=== PATIENT | female | born 1960 | race Caucasian/White ===

== ENCOUNTER 2017-11-14 14:10 | Emergency (ER) | payer SELFPAY ==
[2017-11-14] MEDS ORDERED: ADENOSINE 6 MG/2 ML VIAL. IV ×2 (14:18)
[2017-11-14] MEDS: ADENOSINE 6 MG/2 ML VIAL. IV ×2 (14:20)
== END 2017-11-14 16:15 | disposition home or self-care (01) ==
LOC: ER 14:10
DX: I47.1 Supraventricular tachycardia (principal)
CPT/HCPCS: 92960; 93005; 96374; 99284-25; J0153

== ENCOUNTER 2018-01-02 05:22 | Emergency (ER) | payer SELFPAY ==
[2018-01-02] MEDS ORDERED: ADENOSINE 6 MG/2 ML VIAL. IV (05:33)
[2018-01-02] MEDS: IV NORMAL SALINE 1000ML BAG 1,000 ML IV (05:56)
[2018-01-02] MEDS: ADENOSINE 6 MG/2 ML VIAL. IV (05:59)
[2018-01-02 06:06] LABS: ADD MAN DIFF? NO
[2018-01-02 06:12] LABS: BASO % 0 % (0-3); EOS # 0.1 x10^3/uL (0.0-0.7); EOS % 1 % (0-3); HEMATOCRIT 46.3 % (36.0-47.0); HEMOGLOBIN 15.5 g/dL (12.0-15.5); LYMPH # 3.3 x10^3/uL (1.0-4.8); LYMPH % 32 % (24-48); MEAN CORPUSCULAR HEMOGLOBIN 28 pg (25-35); MEAN CORPUSCULAR HGB CONC 33 g/dL (31-37); MEAN CORPUSCULAR VOLUME 85 fL (79-100); MONO # 0.7 x10^3/uL (0.0-1.1); MONO % 7 % (0-9); NEUT # 6.3 x10^3uL (1.8-7.7); NEUT % 60 % (31-73); PLATELET COUNT 209 x10^3/uL (140-400); RED BLOOD COUNT 5.45 x10^6/uL (3.50-5.40); RED CELL DISTRIBUTION WIDTH 14.7 % (11.5-14.5); WHITE BLOOD COUNT 10.4 x10^3/uL (4.0-11.0)
[2018-01-02 06:32] LABS: ANION GAP 12 (6-14); BLOOD UREA NITROGEN 15 mg/dL (7-20); CALCIUM 9.1 mg/dL (8.5-10.1); CARBON DIOXIDE 25 mmol/L (21-32); CHLORIDE 105 mmol/L (98-107); CREATININE 1.1 mg/dL (0.6-1.0); GFR 51.6; GLUCOSE 129 mg/dL (70-99); POTASSIUM 3.3 mmol/L (3.5-5.1); SODIUM 142 mmol/L (136-145)
[2018-01-02 06:42] LABS: TROPONINI < 0.017 ng/mL (0.000-0.055)
[2018-01-02 06:47] LABS: THYROID STIM HORMONE (TSH) 2.356 uIU/mL (0.358-3.74)
[2018-01-02] MEDS: POTASSIUM CHLORIDE 20 MEQ TABLET.ER. PO (06:50)
== END 2018-01-02 07:04 | disposition home or self-care (01) ==
LOC: ER 05:22
DX: I47.1 Supraventricular tachycardia (principal)
CPT/HCPCS: 36415; 80048; 84443; 84484; 85025; 93005; 96361; 96374; 99285-25; J0153; J7030

== ENCOUNTER 2018-10-15 05:37 | Emergency (ER) | payer SELFPAY ==
[~2018-10-15] VITALS: Ht 172.7 cm; Wt 65.8 kg
[~2018-10-15 05:37] MED LIST: LAMO200T3 PO
--- NOTE | 2018-10-15 05:42 | PHYS DOC ---
Past Medical History Past Medical History: Arrhythmia, Seizure, Other Additional Past Medical Histor: SVT Past Surgical History: No Surgical History Alcohol Use: None Drug Use: None Adult General Chief Complaint Chief Complaint: Palpitations HPI HPI Patient is a 58 year old female who presents with SVT. Patient has had SVT many times in her life. She states sometimes it only happens once a year or less and other times she has episodes that are recurrent more frequently. She woke up this morning having some chest tightness and noted her heart rate to be fast. She states the symptoms are very typical for her SVT symptoms. No shortness of breath. Patient was previously set to undergo ablation therapy but eventually lost her insurance and did not have that procedure done. She currently does not have a primary abalone processor for lack of insurance. No nausea or vomiting. No recent illness. No additional complaints today. Review of Systems Review of Systems Constitutional: Denies fever or chills Eyes: Denies change in visual acuity HENT: Denies nasal congestion or sore throat Respiratory: Denies cough or shortness of breath Cardiovascular: No additional information not addressed in HPI GI: Denies abdominal pain, nausea : Denies dysuria or hematuria Musculoskeletal: Denies back pain Integument: Denies rash or skin lesions Neurologic: Denies headache All other systems were reviewed and found to be within normal limits, except as documented in this note. Current Medications Current Medications Current Medications Medications (Trade) Dose Ordered Sig/[facility] Start Time Stop Time Status Last Admin Dose Admin Adenosine (Adenocard) 6 mg 1X ONCE 10/15/18 06:00 10/15/18 06:01 DC 10/15/18 05:54 6 MG Aspirin (Yovani Aspirin) 325 mg 1X ONCE 10/15/18 06:00 10/15/18 06:01 DC 10/15/18 06:15 325 MG Sodium Chloride 1,000 ml @ 1,000 mls/hr 1X ONCE 10/15/18 06:00 10/15/18 06:59 DC 10/15/18 05:53 1,000 MLS/HR Allergies Allergies Allergies Coded Allergies Type Severity Reaction Last Updated Verified No Known Drug Allergies 02/08/14 No Physical Exam Physical Exam Constitutional: Well developed, well nourished, no acute distress, non-toxic appearance HENT: Normocephalic, atraumatic, bilateral external ears normal Eyes: PERRLA, EOMI, conjunctiva normal Neck: Normal range of motion, no tenderness Cardiovascular: tachy regular rhythm, no murmur Lungs & Thorax: Bilateral breath sounds clear to auscultation Abdomen: Bowel sounds normal, soft, no tenderness Skin: Warm, dry, no erythema, no rash Extremities: No tenderness Neurologic: Alert and oriented X 3 Psychologic: Affect normal Current Patient Data Vital Signs Vital Signs Date Time Temp Pulse Resp B/P (MAP) Pulse Ox O2 Delivery O2 Flow Rate FiO2 10/15/18 06:14 92 18 132/79 (96) 100 Room Air 10/15/18 05:38 97.5 97.5 EKG EKG [] Radiology/Procedures Radiology/Procedures [] Course & Med Decision Making Course & Med Decision Making Pertinent Labs and Imaging studies reviewed. (See chart for details) Patient is evaluated in the emergency department for SVT. The patient has had this many times. On arrival, she has a heart rate in the 150s and an EKG consistent with SVT. IV was placed. The patient was given IV fluids. She was given a single dose of 6 mg adenosine in the left before meals. Following this, the patient converted to a sinus rhythm. She was observed in the ER for another hour and continued to be in sinus rhythm. Subjectively, the patient's complaints were all improved. Patient was requesting discharge to home. She was provided the office number to the abalone processor on-call for follow-up and also encouraged to come back to the ER if her symptoms recurred. Patient was agreeable to the plan of care. Of note, the patient did have labs ordered empirically on arrival to her room. During her actual examination, she specifically requested that labs not be completed as this would run up significant additional cost for her visit and as she states her labs have been checked every time she has this episode and they are always normal. With this information, I immediately went to the computer and canceled the lab orders but they were already in progress. I then contacted the laboratory directly and requested that these tests be canceled per the patient's request. I advised the patient that if she receives a bill for the labs in the future that she should contact the billing department and also reference this note. The patient should not receive any charges for labs as she declined these tests which is her right to do. Raya: Patient arrived during end of shift. EKG and labs ordered empirically upon patient's arrival. EKG noted SVT. Patient was not seen or evaluated by myself as Dr. Glez arrived and took over care. Dragon Disclaimer Dragon Disclaimer This electronic medical record was generated, in whole or in part, using a voice recognition dictation system. Departure Departure Disposition: 01 HOME, SELF-CARE Condition: GOOD Referrals: UNKNOWN PCP NAME (PCP) SHANNON RAYA DO Oct 15, 2018 05:42 GAUTAM GLEZ DO Oct 15, 2018 06:51
[2018-10-15] MEDS: IV NORMAL SALINE 1000ML BAG 1,000 ML IV ONE (05:53)
[2018-10-15] MEDS: ADENOSINE 6 MG/2 ML VIAL. IV ONE (05:54)
[2018-10-15 06:14] VITALS: BP 132/79
[2018-10-15] MEDS: ASPIRIN 325 MG TABLET PO ONE (06:15)
--- NOTE | 2018-10-15 10:59 | EKG ---
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
--- NOTE | 2018-10-16 08:14 | EKG ---
[facility] [address] [place] [address] Test Date: 2018-10-15 Test Time: 05:43:13 Pat Name: MURALI ALBA Department: Room: Gender: F Loop Puller: : 1960 Requested By: GAUTAM CHAVARRIA Order Number: [id number] Reading MD: Measurements Intervals [place] Rate: 168 P: DC: QRS: 41 QRSD: 82 T: -72 QT: 264 QTc: 447 Interpretive Statements SUPRAVENTRICULAR TACHYCARDIA ST & T ABNORMALITY, CONSIDER LATERAL ISCHEMIA OR LEFT VENTRICULAR STRAIN INFEROLATERAL ISCHEMIA OR LEFT VENTRICULAR STRAIN ABNORMAL ECG RI6.01 No previous ECG available for comparison
== END 2018-10-15 07:01 | disposition home or self-care (01) ==
LOC: ER 05:37
DX: I47.1 Supraventricular tachycardia (principal)
CPT/HCPCS: 93005; 96361; 96374; 99283; J0153; J7030; 99284-25

== ENCOUNTER 2018-12-25 07:45 | Emergency (ER) | payer SELFPAY ==
[~2018-12-25] VITALS: Ht 172.7 cm; Wt 63.5 kg
[2018-12-25] MEDS ORDERED: ADENOSINE 6 MG/2 ML VIAL. IV ONE (07:56)
[2018-12-25 08:35] VITALS: BP 123/66
--- NOTE | 2018-12-25 09:32 | PHYS DOC ---
Past Medical History Past Medical History: Seizure Additional Past Medical Histor: SVT Past Surgical History: Tonsillectomy Alcohol Use: None Drug Use: None Adult General Chief Complaint Chief Complaint: RAPID HEART RATE HPI HPI Patient is a 58 year old female who is presenting with severe palpitations she said she felt her heart racing when she woke up this feels similar to her previous episodes of SVT. She has some mild chest discomfort but really it is the heart racing that is bothering her the most she is sweaty and feels weak. She's had this several times in the past she has not yet had an ablation because she tells me she does not have insurance Review of Systems Review of Systems Constitutional: Denies fever or chills [] Eyes: Denies change in visual acuity, redness, or eye pain [] HENT: Denies nasal congestion or sore throat [] Respiratory: Denies cough or shortness of breath [] Cardiovascular: GI: Denies abdominal pain, nausea, vomiting, bloody stools or diarrhea [] : Denies dysuria or hematuria [] All other systems were reviewed and found to be within normal limits, except as documented in this note. Current Medications Current Medications Current Medications Medications (Trade) Dose Ordered Sig/[facility] Start Time Stop Time Status Last Admin Dose Admin Adenosine (Adenocard) 6 mg STK-MED ONCE 12/25/18 07:56 12/25/18 07:57 DC Allergies Allergies Allergies Coded Allergies Type Severity Reaction Last Updated Verified No Known Drug Allergies 02/08/14 No Physical Exam Physical Exam Constitutional: Well developed, mildly diaphoretic mild distress HENT: Normocephalic, atraumatic, bilateral external ears normal, oropharynx moist, no oral exudates, nose normal. [] Eyes: PERRLA, EOMI, conjunctiva normal, no discharge. [] Neck: Normal range of motion, no tenderness, supple, no stridor. [] Cardiovascular: Very tachycardic difficult to assess for murmurs Lungs & Thorax: Bilateral breath sounds clear to auscultation [] Abdomen: Bowel sounds normal, soft, no tenderness, no masses, no pulsatile masses. [] Skin: Warm, diaphoretic, no erythema, no rash. [] Back: No tenderness, no CVA tenderness. [] Extremities: No tenderness, no cyanosis, no clubbing, ROM intact, no edema. [] Neurologic: Alert and oriented X 3, normal motor function, normal sensory function, no focal deficits noted. [] Psychologic: Affect normal, judgement normal, mood normal. [] Current Patient Data Vital Signs Vital Signs Date Time Temp Pulse Resp B/P (MAP) Pulse Ox O2 Delivery O2 Flow Rate FiO2 12/25/18 08:35 92 16 123/66 (85) 98 Room Air 12/25/18 07:45 97.8 97.8 EKG EKG [] Radiology/Procedures Radiology/Procedures [] Course & Med Decision Making Course & Med Decision Making Pertinent Labs and Imaging studies reviewed. (See chart for details) []EKG shows most likely SVT with a rate of 166 there are some rate related ST depressions most likely in V4 through V6 there is isolated ST elevation in aVR this is likely rate related changes. Repeat EKG after 6 mg of adenosine I witnessed a immediate reversion to sinus rhythm second EKG showed sinus tachycardia rate of 102 P waves are present no STEMI no ischemia I reevaluated the patient in detail following this treatment she says that her symptoms have resolved completely. I did recommend some lab work to check her electrolytes to evaluate her troponins her hemoglobin the typical usual stuff that we always do and she adamantly refuses she says that she has had labs checked so many times and they're always negative and she does not want to get the pill when she is refusing those tests. This appears to be within her rights and she is aware of the risks of a missed diagnosis up to and including M She was observed in the ER with maintenance of sinus rhythm and she was discharged in stable condition and encouraged to do her very best to obtain the appropriate follow-up. Dragon Disclaimer Dragon Disclaimer This electronic medical record was generated, in whole or in part, using a voice recognition dictation system. Departure Departure Impression: Primary Impression: SVT (supraventricular tachycardia) Disposition: 01 HOME, SELF-CARE Condition: STABLE Referrals: UNKNOWN PCP NAME Patient Instructions: Supraventricular Tachycardia, [id number] MICHAEL RODRIGUEZ MD Dec 25, 2018 09:32
--- NOTE | 2018-12-25 12:09 | EKG ---
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
--- NOTE | 2018-12-25 12:28 | EKG ---
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
== END 2018-12-25 09:06 | disposition home or self-care (01) ==
LOC: ER 07:45
DX: I47.1 Supraventricular tachycardia (principal); R61 Generalized hyperhidrosis; Z90.89 Acquired absence of other organs
CPT/HCPCS: 93005; 99283

== ENCOUNTER 2018-12-27 10:37 | Emergency (ER) | payer SELFPAY ==
[~2018-12-27] VITALS: Ht 172.7 cm; Wt 63.5 kg
[2018-12-27] MEDS ORDERED: ADENOSINE 6 MG/2 ML VIAL. IV ONE (10:45)
[2018-12-27 12:10] VITALS: BP 129/68
--- NOTE | 2018-12-27 12:12 | PHYS DOC ---
Past Medical History Past Medical History: Seizure Additional Past Medical Histor: SVT Past Surgical History: Tonsillectomy Alcohol Use: None Drug Use: None Adult General Chief Complaint Chief Complaint: RAPID HEART RATE [facility] HPI Patient is a 58 year old female presents with palpitations onset 40 minutes prior to arrival multiple history of the same has some chest pressure associated she does not want me to do labs I could not convince her again she has had multiple fairly normal labs overall she is taking potassium supplementation she is taking Cardizem 240 mg a day she is working on obtaining insurance so that she can try to get an ablation for this fairly chronic problem Review of Systems Review of Systems Constitutional: Denies fever or chills [] Eyes: Denies change in visual acuity, redness, or eye pain [] HENT: Denies nasal congestion or sore throat [] Cardiovascular: No additional information not addressed in HPI [] GI: Denies abdominal pain, nausea, vomiting, bloody stools or diarrhea [] : Denies dysuria or hematuria [] Musculoskeletal: Denies back pain or joint pain [] Integument: Denies rash or skin lesions [] Neurologic: Denies headache, focal weakness or sensory changes [] Endocrine: Denies polyuria or polydipsia [] All other systems were reviewed and found to be within normal limits, except as documented in this note. Current Medications Current Medications Current Medications Medications (Trade) Dose Ordered Sig/[facility] Start Time Stop Time Status Last Admin Dose Admin Adenosine (Adenocard) 6 mg 1X ONCE 12/27/18 10:45 12/27/18 10:46 DC 12/27/18 10:47 6 MG Allergies Allergies Allergies Coded Allergies Type Severity Reaction Last Updated Verified No Known Drug Allergies 02/08/14 No Physical Exam Physical Exam Constitutional: Well developed, well nourished, mildly ill-appearing, nose normal. [] Eyes: PERRLA, EOMI, conjunctiva normal, no discharge. [] Neck: Normal range of motion, no tenderness, supple, no stridor. [] Cardiovascular: Very tachycardic but regular no definite murmurs speed limits exam Lungs & Thorax: Bilateral breath sounds clear to auscultation [] Abdomen: Bowel sounds normal, soft, no tenderness, no masses, no pulsatile masses. [] Skin: Warm, dry, no erythema, no rash. [] Back: No tenderness, no CVA tenderness. [] Extremities: No tenderness, no cyanosis, no clubbing, ROM intact, no edema. [] Neurologic: Alert and oriented X 3, normal motor function, normal sensory function, no focal deficits noted. [] Psychologic: Affect normal, judgement normal, mood normal. [] Current Patient Data Vital Signs Vital Signs Date Time Temp Pulse Resp B/P (MAP) Pulse Ox O2 Delivery O2 Flow Rate FiO2 12/27/18 10:40 97.2 185 22 146/96 (113) 100 Room Air 97.2 EKG EKG []EKG shows a SVT with retrograde P waves rate of 182 ST related changes laterally probably rate related to some mild ST depression seen repeat EKG after 6 mg of adenosine did show a sinus tachycardia at a rate of [address] depressions on this EKG which was done less than 30 seconds after resolution of the SVT. Reevaluation of the cardiac surgeon at 12 noon does show a rate of 81 with good P waves and I went back to recheck her and she is asymptomatic eager to go home. Radiology/Procedures Radiology/Procedures [] Course & Med Decision Making Course & Med Decision Making Pertinent Labs and Imaging studies reviewed. (See chart for details) []Recurrent SVT we gave adenosine it broke this is a common issue for her I did encourage good follow-up she is taking Cardizem she will continue to do so. She is also on potassium supplementation which is good she did not want labs to be done again Dragon Disclaimer Dragon Disclaimer This electronic medical record was generated, in whole or in part, using a voice recognition dictation system. Departure Departure Impression: Primary Impression: SVT (supraventricular tachycardia) Disposition: 01 HOME, SELF-CARE Condition: STABLE Referrals: NO PCP (PCP) Patient Instructions: Supraventricular Tachycardia, [id number] MICHAEL RODRIGUEZ MD Dec 27, 2018 12:12
--- NOTE | 2018-12-27 12:15 | EKG ---
[facility] [address] [place] [address] Test Date: 2018-12-27 Test Time: 10:43:08 Pat Name: MURALI ALBA Department: Room: Gender: F Cardiopulmonary Technologist Chief: : 1960 Requested By: MICHAEL RODRIGUEZ Order Number: [id number] Reading MD: Balbir Aguiar MD Measurements Intervals [place] Rate: 181 P: [place]: QRS: 49 QRSD: 80 T: 32 QT: 266 QTc: 466 Interpretive Statements SUPRAVENTRICULAR TACHYCARDIA NON-SPECIFIC ST/T CHANGES Electronically Signed On 12-28-2018 9:37:52 CDT by Balbir Aguiar MD
[2018-12-27] MEDS ORDERED: IV NORMAL SALINE 1000ML BAG 1,000 ML IV ONE (12:30)
--- NOTE | 2018-12-27 13:09 | EKG ---
[facility] [address] [place] [address] Test Date: 2018-12-27 Test Time: 10:48:58 Pat Name: MURALI ALBA Department: Room: Gender: F Charge Account Clerk: : 1960 Requested By: MICHAEL RODRIGUEZ Order Number: [id number] Reading MD: Balbir Aguiar MD Measurements Intervals [place] Rate: 133 P: -47 [place]: 116 QRS: 64 QRSD: 86 T: 42 QT: 292 QTc: 435 Interpretive Statements SR NON-SPECIFIC ST/T CHANGES Electronically Signed On 12-28-2018 9:38:04 CDT by Balbir Aguiar MD
== END 2018-12-27 12:22 | disposition home or self-care (01) ==
LOC: ER 10:37
DX: I47.1 Supraventricular tachycardia (principal); Z90.89 Acquired absence of other organs
CPT/HCPCS: 93005; 96374; 99283; J0153

== ENCOUNTER 2019-01-03 10:39 | Emergency (ER) | payer SELFPAY ==
[~2019-01-03] VITALS: Ht 172.7 cm; Wt 68.0 kg
[2019-01-03] MEDS ORDERED: IV NORMAL SALINE 1000ML BAG 1,000 ML IV SCH (10:47)
[2019-01-03] MEDS ORDERED: ADENOSINE 6 MG/2 ML VIAL. IV ONE (11:00)
[2019-01-03 11:12] LABS: BASO # 0.1 x10^3/uL (0.0-0.2); BASO % 1 % (0-3); EOS # 0.2 x10^3/uL (0.0-0.7); EOS % 2 % (0-3); HEMATOCRIT 46.6 % (36.0-47.0); HEMOGLOBIN 15.6 g/dL (12.0-15.5); LYMPH # 3.3 x10^3/uL (1.0-4.8); LYMPH % 36 % (24-48); MEAN CORPUSCULAR HEMOGLOBIN 28 pg (25-35); MEAN CORPUSCULAR HGB CONC 33 g/dL (31-37); MEAN CORPUSCULAR VOLUME 84 fL (79-100); MONO # 0.6 x10^3/uL (0.0-1.1); MONO % 6 % (0-9); NEUT # 4.9 x10^3uL (1.8-7.7); NEUT % 55 % (31-73); PLATELET COUNT 264 x10^3/uL (140-400); RED BLOOD COUNT 5.56 x10^6/uL (3.50-5.40); RED CELL DISTRIBUTION WIDTH 14.9 % (11.5-14.5)
--- NOTE | 2019-01-03 11:29 | RAD ---
PORTABLE CHEST 1V Clinical indications: PALPITATIONS, supraventricular tachycardia COMPARISON: August 20, 2013. Findings: No acute lung infiltrate or pleural effusion or pulmonary edema or lung mass or pneumothorax is seen. The heart size, pulmonary vasculature, mediastinum and both jess are unremarkable. Impression: No acute radiographic abnormality is seen. Electronically signed by: Johnathon Mccullough MD (01/03/2019 11:26 AM) [facility]
[2019-01-03 12:36] LABS: CALCIUM 7.9 mg/dL (8.5-10.1); GFR 57.4; POTASSIUM 3.1 mmol/L (3.5-5.1)
--- NOTE | 2019-01-03 12:36 | PHYS DOC ---
Past Medical History Past Medical History: Seizure Additional Past Medical Histor: SVT Past Surgical History: Tonsillectomy Alcohol Use: None Drug Use: None Adult General Chief Complaint Chief Complaint: RAPID HEART RATE HPI HPI Patient is a 58 year old female with history of SVT who presents with a complaining of palpitation. Patient states she woke up at 7 AM because of palpitation without chest pain, dizziness, shortness of breath, weakness, nausea and vomiting. Patient complaining of constant palpitations that did not get better with Valsalva maneuver and taking daily dose of 240 mg of Cardizem. Patient had heart rate of 188 at arrival to ER and states she was seen in this emergency room one week ago with the same problem. Patient states she had episodes of SVT for almost 15 years and treatment with cardiac ablation was discussed with her but because of insurance problems she had not had ablation or cardiology visit. Review of Systems Review of Systems Constitutional: Denies fever or chills [] Eyes: Denies change in visual acuity, redness, or eye pain [] HENT: Denies nasal congestion or sore throat [] Respiratory: Denies cough or shortness of breath [] Cardiovascular: No additional information not addressed in HPI [] GI: Denies abdominal pain, nausea, vomiting, bloody stools or diarrhea [] : Denies dysuria or hematuria [] Musculoskeletal: Denies back pain or joint pain [] Integument: Denies rash or skin lesions [] Neurologic: Denies headache, focal weakness or sensory changes [] Endocrine: Denies polyuria or polydipsia [] All other systems were reviewed and found to be within normal limits, except as documented in this note. Current Medications Current Medications Current Medications Medications (Trade) Dose Ordered Sig/Rohith Start Time Stop Time Status Last Admin Dose Admin Adenosine (Adenocard) 6 mg 1X ONCE 01/03/19 11:00 01/03/19 11:01 DC 01/03/19 10:56 6 MG Potassium Chloride (Klor-Con) 40 meq 1X ONCE 01/03/19 13:15 01/03/19 13:16 DC 01/03/19 13:12 40 MEQ Sodium Chloride 500 ml @ 500 mls/hr 1X ONCE 01/03/19 13:15 01/03/19 14:06 DC 01/03/19 13:13 500 MLS/HR Allergies Allergies Allergies Coded Allergies Type Severity Reaction Last Updated Verified No Known Drug Allergies 02/08/14 No Physical Exam Physical Exam Constitutional: Well developed, well nourished, moderate distress, non-toxic appearance. [] HENT: Normocephalic, atraumatic, oropharynx moist. Eyes: PERRLA, EOMI, conjunctiva normal, no discharge. [] Neck: Normal range of motion, no tenderness, supple, no stridor. [] Cardiovascular: Tachycardia, no murmur [] Lungs & Thorax: Bilateral breath sounds clear to auscultation [] Abdomen: Bowel sounds normal, soft, no tenderness, no masses, no pulsatile masses. [] Skin: Warm, dry, no erythema, no rash. [] Back: No tenderness, no CVA tenderness. [] Extremities: No tenderness, no cyanosis, no clubbing, ROM intact, no edema. [] Neurologic: Alert and oriented X 3, normal motor function, normal sensory function, no focal deficits noted. [] Psychologic: Affect anxious, judgement normal, mood normal. [] Current Patient Data Vital Signs Vital Signs Date Time Temp Pulse Resp B/P (MAP) Pulse Ox O2 Delivery O2 Flow Rate FiO2 01/03/19 13:45 70 14 114/71 (85) 100 Nasal Cannula 2.0 01/03/19 10:41 98.6 98.6 Lab Values Laboratory Tests Test 01/03/19 10:56 01/03/19 11:33 White Blood Count 9.0 x10^3/uL (4.0-11.0) Red Blood Count 5.56 x10^6/uL (3.50-5.40) H Hemoglobin 15.6 g/dL (12.0-15.5) H Hematocrit 46.6 % (36.0-47.0) Mean Corpuscular Volume 84 fL (79-100) Mean Corpuscular Hemoglobin 28 pg (25-35) Mean Corpuscular Hemoglobin Concent 33 g/dL (31-37) Red Cell Distribution Width 14.9 % (11.5-14.5) H Platelet Count 264 x10^3/uL (140-400) Neutrophils (%) (Auto) 55 % (31-73) Lymphocytes (%) (Auto) 36 % (24-48) Monocytes (%) (Auto) 6 % (0-9) Eosinophils (%) (Auto) 2 % (0-3) Basophils (%) (Auto) 1 % (0-3) Neutrophils # (Auto) 4.9 x10^3uL (1.8-7.7) Lymphocytes # (Auto) 3.3 x10^3/uL (1.0-4.8) Monocytes # (Auto) 0.6 x10^3/uL (0.0-1.1) Eosinophils # (Auto) 0.2 x10^3/uL (0.0-0.7) Basophils # (Auto) 0.1 x10^3/uL (0.0-0.2) Prothrombin Time 13.0 SEC (11.7-14.0) Prothrombin Time INR 1.0 (0.8-1.1) Sodium Level 145 mmol/L (136-145) Potassium Level 3.1 mmol/L (3.5-5.1) L Chloride Level 110 mmol/L (98-107) H Carbon Dioxide Level 20 mmol/L (21-32) L Anion Gap 15 (6-14) H Blood Urea Nitrogen 12 mg/dL (7-20) Creatinine 1.0 mg/dL (0.6-1.0) Estimated GFR (Cockcroft-Gault) 57.4 BUN/Creatinine Ratio 12 (6-20) Glucose Level 115 mg/dL (70-99) H Calcium Level 7.9 mg/dL (8.5-10.1) L Magnesium Level 1.9 mg/dL (1.8-2.4) Total Bilirubin 0.6 mg/dL (0.2-1.0) Aspartate Amino Transferase (AST) 18 U/L (15-37) Alanine Aminotransferase (ALT) 19 U/L (14-59) Alkaline Phosphatase 86 U/L (46-116) Creatine Kinase 98 U/L (26-192) Troponin I Quantitative < 0.017 ng/mL (0.000-0.055) QQ-Qth-U-Type Natriuretic Peptide 282 pg/mL (0-124) H Total Protein 6.2 g/dL (6.4-8.2) L Albumin 3.3 g/dL (3.4-5.0) L Albumin/Globulin Ratio 1.1 (1.0-1.7) Thyroid Stimulating Hormone (TSH) 1.246 uIU/mL (0.358-3.74) Laboratory Tests 01/03/19 10:56 Laboratory Tests 01/03/19 11:33 EKG EKG EKG interpreted by me. EKG at 1043 showed 60 04/26/79, no acute ST-T wave abnormalities Repeat EKG at 11 00 after treatment with 6 mg of Adenosin showed sinus tachycardia at rate of 107, normal NV and QT intervals, poor R-wave progress in anteroseptal leads, Radiology/Procedures Radiology/Procedures [facility] [address] [place] [address] IMAGING REPORT Signed PATIENT: MURALI ALBA ACCOUNT: [id number] : 1960 LOCATION: ER AGE: 58 SEX: F EXAM STATUS: REG ER ORD. PHYSICIAN: JIMI JOHNSON MD REASON: palpitation, SVT PROCEDURE: PORTABLE CHEST 1V PORTABLE CHEST 1V Clinical indications: PALPITATIONS, supraventricular tachycardia COMPARISON: August 20, 2013. Findings: No acute lung infiltrate or pleural effusion or pulmonary edema or lung mass or pneumothorax is seen. The heart size, pulmonary vasculature, mediastinum and both jess are unremarkable. Impression: No acute radiographic abnormality is seen. Electronically signed by: Gloria Mccullough MD (01/03/2019 11:26 AM) [facility] DICTATED and SIGNED BY: GLORIA MCCULLOUGH MD DATE: 01/03/19 1126 Course & Med Decision Making Course & Med Decision Making Pertinent Labs and Imaging studies reviewed. (See chart for details) Evaluation of patient in ER showed 58-year-old female patient with history of recurrent SVT presented to ER with palpitation and heart rate of 180s. Patient did not have chest pain or hypotension or altered level of consciousness. Patient treated with 6 mg of Adenosin with conversion of SVT to sinus rhythm. Patient had mild hypokalemia and treated with potassium in ER. Patient had blood pressure to low 90s and high 80s and treated with IV fluid with improvement of blood pressure. Patient stated she had chronic hypotension. Patient did not want hospitalization wants to follow-up with her electrogalvanizing machine operator as outpatient because of financial problem. Patient ambulated without problem with heart rate of 90. Patient was advised to continue home Cardizem and quit smoking. Dragon Disclaimer Dragon Disclaimer This electronic medical record was generated, in whole or in part, using a voice recognition dictation system. Departure Departure Impression: Primary Impression: SVT (supraventricular tachycardia) Additional Impressions: Hypokalemia Tobacco abuse Tobacco abuse counseling Hypotension Anxiety Disposition: HOME, SELF-CARE (at 1343) Condition: IMPROVED Referrals: NO PCP (PCP) MEÑO MAURICIO MD Patient Instructions: Hypokalemia, Smoking Cessation, Tips For Success, Supraventricular Tachycardia Additional Instructions: Follow-up with on-call electrogalvanizing machine operator in one or 2 days Continue home medication Follow-up with your primary care physician in 3-5 days Return to ER if not getting better Critical Care Time Critical care time was 40 minutes exclusive of procedures. Problem Qualifiers JIMI JOHNSON MD Jan 03, 2019 12:36
[2019-01-03 12:42] LABS: ALBUMIN 3.3 g/dL (3.4-5.0); ALBUMIN/GLOBULIN RATIO 1.1 (1.0-1.7); MAGNESIUM 1.9 mg/dL (1.8-2.4); TOTAL BILIRUBIN 0.6 mg/dL (0.2-1.0); TOTAL PROTEIN 6.2 g/dL (6.4-8.2)
[2019-01-03] MEDS ORDERED: IV NORMAL SALINE 500ML BAG 500 ML IV ONE (13:15)
[2019-01-03] MEDS ORDERED: POTASSIUM CHLORIDE 20 MEQ TABLET.ER. PO ONE (13:15)
[2019-01-03 13:45] VITALS: BP 114/71
--- NOTE | 2019-01-03 19:23 | EKG ---
[facility] [address] [place] [address] Test Date: 2019-01-03 Test Time: 10:43:49 Pat Name: MURALI ALBA Department: Room: Gender: F Apple Packing Header: : 1960 Requested By: JIMI JOHNSON Order Number: [id number] Reading MD: Balbir Aguiar MD Measurements Intervals [place] Rate: 179 P: [place]: QRS: 59 QRSD: 78 T: 37 QT: 264 QTc: 463 Interpretive Statements SUPRAVENTRICULAR TACHYCARDIA DIFFUSE ST/T CHANGES - NON-SPECIFICI Electronically Signed On 01-15-2019 9:54:59 CDT by Balbir Aguiar MD
--- NOTE | 2019-01-04 13:57 | EKG ---
[facility] [address] [place] [address] Test Date: 2019-01-03 Test Time: 11:00:37 Pat Name: MURALI ALBA Department: Room: Gender: F Healthcare Management Consultant: : 1960 Requested By: JIMI JOHNSON Order Number: [id number] Reading MD: Balbir Aguiar MD Measurements Intervals [place] Rate: 107 P: 40 ME: 152 QRS: 68 QRSD: 82 T: 61 QT: 320 QTc: 432 Interpretive Statements SINUS TACHYCARDIA NON-SPECIFIC ST/T CHANGES Electronically Signed On 01-15-2019 9:55:08 CDT by Balbir Aguiar MD
== END 2019-01-03 14:06 | disposition home or self-care (01) ==
LOC: ER 10:39
DX: I47.1 Supraventricular tachycardia (principal); E87.6 Hypokalemia; I95.9 Hypotension, unspecified; F41.9 Anxiety disorder, unspecified; Z71.6 Tobacco abuse counseling; Z90.89 Acquired absence of other organs
CPT/HCPCS: 36415; 71045; 80053; 82550; 83735; 83880; 84443; 84484; 85025; 85610; 93005; 96374; 99284; J0153; J7030; J7040

== ENCOUNTER 2019-02-19 00:53 | Emergency (ER) | payer SELFPAY ==
[~2019-02-19] VITALS: Ht 172.7 cm; Wt 65.8 kg
[2019-02-19] MEDS ORDERED: ADENOSINE 6 MG/2 ML VIAL. IV ONE ×3 (00:59→01:45)
[2019-02-19 01:21] LABS: BASO # 0.1 x10^3/uL (0.0-0.2); BASO % 1 % (0-3); EOS # 0.1 x10^3/uL (0.0-0.7); EOS % 1 % (0-3); HEMATOCRIT 42.9 % (36.0-47.0); HEMOGLOBIN 14.4 g/dL (12.0-15.5); LYMPH # 3.4 x10^3/uL (1.0-4.8); LYMPH % 39 % (24-48); MEAN CORPUSCULAR HEMOGLOBIN 28 pg (25-35); MEAN CORPUSCULAR HGB CONC 34 g/dL (31-37); MEAN CORPUSCULAR VOLUME 84 fL (79-100); MONO # 0.6 x10^3/uL (0.0-1.1); MONO % 7 % (0-9); NEUT # 4.5 x10^3uL (1.8-7.7); NEUT % 52 % (31-73); PLATELET COUNT 193 x10^3/uL (140-400); RED BLOOD COUNT 5.11 x10^6/uL (3.50-5.40); RED CELL DISTRIBUTION WIDTH 14.7 % (11.5-14.5); WHITE BLOOD COUNT 8.7 x10^3/uL (4.0-11.0)
[2019-02-19 01:27] LABS: CALCIUM 9.1 mg/dL (8.5-10.1); CREATININE 1.1 mg/dL (0.6-1.0); GFR 51.4; POTASSIUM 3.5 mmol/L (3.5-5.1)
[2019-02-19 01:33] LABS: ALBUMIN 4.5 g/dL (3.4-5.0); ALBUMIN/GLOBULIN RATIO 1.4 (1.0-1.7); TOTAL BILIRUBIN 0.6 mg/dL (0.2-1.0); TOTAL PROTEIN 7.7 g/dL (6.4-8.2)
--- NOTE | 2019-02-19 01:52 | PHYS DOC ---
Past Medical History Past Medical History: Seizure, Other Additional Past Medical Histor: SVT Past Surgical History: Tonsillectomy Alcohol Use: None Drug Use: None Adult General Chief Complaint Chief Complaint: RAPID HEART RATE HPI HPI Patient is a 58 year old female with history of paroxysmal SVT who presents in SVT. Symptom onset is 30 minutes prior to ED arrival. Patient has required prior chemical cardioversion. At home, she attempted to bear down, perform head stands and splashed cold water in her face without effect. Patient reports mild dyspnea, denies chest pain, nausea sweats. Denies known precipitants. Denies caffeine or stimulant use. Patient has had prior heart catheterization that she states was negative. She is compliant with her antiarrhythmic medication. No other acute symptoms or complaints. Also reports history of epilepsy which is controlled with medication. No other acute symptoms or complaints[] Review of Systems Review of Systems Review symptoms as per history of present illness. All other systems were reviewed and found to be within normal limits, except as documented in this note. Current Medications Current Medications Current Medications Medications (Trade) Dose Ordered Sig/Rohith Start Time Stop Time Status Last Admin Dose Admin Adenosine (Adenocard) 6 mg 1X ONCE 02/19/19 01:45 02/19/19 01:46 UNV Allergies Allergies Allergies Coded Allergies Type Severity Reaction Last Updated Verified No Known Drug Allergies 02/08/14 No Physical Exam Physical Exam Constitutional: Well developed, well nourished, anxious. [] HENT: Normocephalic, atraumatic, bilateral external ears normal, oropharynx moist, no oral exudates, nose normal. [] Eyes: PERRLA, EOMI, conjunctiva normal, no discharge. [] Neck: Normal range of motion, no tenderness, supple, no stridor. [] Cardiovascular: Tachycardic,regular rhythm[] Lungs & Thorax: Bilateral breath sounds clear to auscultation [] Abdomen: Bowel sounds normal, soft, no tenderness. [] Skin: Warm, dry, no erythema, no rash. [] Back: No tenderness, no CVA tenderness. [] Extremities: No tenderness. [] Neurologic: Alert and oriented X 3, normal motor function, normal sensory function, no focal deficits noted. [] Psychologic: Affect normal, judgement normal, mood normal. [] Current Patient Data Vital Signs Vital Signs Date Time Temp Pulse Resp B/P (MAP) Pulse Ox O2 Delivery O2 Flow Rate FiO2 02/19/19 00:53 98.0 163 18 161/87 (111) 99 Room Air 98.0 Lab Values Laboratory Tests Test 02/19/19 01:00 White Blood Count 8.7 x10^3/uL (4.0-11.0) Red Blood Count 5.11 x10^6/uL (3.50-5.40) Hemoglobin 14.4 g/dL (12.0-15.5) Hematocrit 42.9 % (36.0-47.0) Mean Corpuscular Volume 84 fL (79-100) Mean Corpuscular Hemoglobin 28 pg (25-35) Mean Corpuscular Hemoglobin Concent 34 g/dL (31-37) Red Cell Distribution Width 14.7 % (11.5-14.5) H Platelet Count 193 x10^3/uL (140-400) Neutrophils (%) (Auto) 52 % (31-73) Lymphocytes (%) (Auto) 39 % (24-48) Monocytes (%) (Auto) 7 % (0-9) Eosinophils (%) (Auto) 1 % (0-3) Basophils (%) (Auto) 1 % (0-3) Neutrophils # (Auto) 4.5 x10^3uL (1.8-7.7) Lymphocytes # (Auto) 3.4 x10^3/uL (1.0-4.8) Monocytes # (Auto) 0.6 x10^3/uL (0.0-1.1) Eosinophils # (Auto) 0.1 x10^3/uL (0.0-0.7) Basophils # (Auto) 0.1 x10^3/uL (0.0-0.2) Sodium Level 144 mmol/L (136-145) Potassium Level 3.5 mmol/L (3.5-5.1) Chloride Level 105 mmol/L (98-107) Carbon Dioxide Level 23 mmol/L (21-32) Anion Gap 16 (6-14) H Blood Urea Nitrogen 25 mg/dL (7-20) H Creatinine 1.1 mg/dL (0.6-1.0) H Estimated GFR (Cockcroft-Gault) 51.4 BUN/Creatinine Ratio 23 (6-20) H Glucose Level 123 mg/dL (70-99) H Calcium Level 9.1 mg/dL (8.5-10.1) Total Bilirubin Pending Aspartate Amino Transferase (AST) Pending Alanine Aminotransferase (ALT) Pending Alkaline Phosphatase Pending Total Protein Pending Albumin Pending Albumin/Globulin Ratio Pending Laboratory Tests 02/19/19 01:00 Laboratory Tests 02/19/19 01:00 EKG EKG [EKG 1, SVT, rate 160, diffuse ST depression, no acute ST elevation appreciated. EKG 2, sinus tach, rate 111] Radiology/Procedures Radiology/Procedures [] Course & Med Decision Making Course & Med Decision Making Pertinent Labs and Imaging studies reviewed. (See chart for details) [Patient successfully chemically cardioverted with 6 mg] of adenosine. Patient monitored, vital signs remained stable. Patient labs reviewed. Recommend continued home Cardizem with cardiology follow-up. Return cautions reviewed. Dragon Disclaimer Dragon Disclaimer This electronic medical record was generated, in whole or in part, using a voice recognition dictation system. Departure Departure Impression: Primary Impression: SVT (supraventricular tachycardia) Disposition: 01 HOME, SELF-CARE Condition: IMPROVED Referrals: NO PCP (PCP) Patient Instructions: Supraventricular Tachycardia, [id number] Additional Instructions: Please continue home medications and follow-up with your PCP and/or technical instructor course developer the next 7-10 days for reevaluation. Return to the ED if symptoms recur. REGGIE FOOTE DO February 19, 2019 01:52
[2019-02-19 02:06] VITALS: BP 146/79
--- NOTE | 2019-02-19 02:10 | RAD ---
PROCEDURE: CHEST AP ONLY CLINICAL INDICATION: Shortness of breath COMPARISON: None FINDINGS: No pneumothorax identified. Cardiac and mediastinal contours unremarkable. No pulmonary consolidation or acute airspace disease. No acute osseous abnormalities identified. IMPRESSION: No pulmonary consolidation or acute airspace disease. Electronically signed by: Edward Bryant DO (02/19/2019 2:07 AM) [facility]
--- NOTE | 2019-02-19 12:34 | EKG ---
[facility] [address] [place] [address] Test Date: 2019-02-19 Test Time: 01:04:42 Pat Name: MURALI ALBA Department: Room: Gender: F News Producer: : 1960 Requested By: REGGIE FOOTE Order Number: [id number] Reading MD: Measurements Intervals [place] Rate: 122 P: 58 [place]: 178 QRS: 59 QRSD: 104 T: -46 QT: 308 QTc: 446 Interpretive Statements SINUS TACHYCARDIA VENTRICULAR PREMATURE COMPLEX(ES) ATRIAL ESCAPE COMPLEX(ES) LEFT ATRIAL ABNORMALITY QRS(T) CONTOUR ABNORMALITY CANNOT RULE OUT ANTEROSEPTAL MYOCARDIAL DAMAGE CONSIDER INFERIOR MYOCARDIAL DAMAGE ST & T ABNORMALITY, CONSIDER ANTERIOR ISCHEMIA OR LEFT VENTRICULAR STRAIN T ABNORMALITY IN LATERAL LEADS ABNORMAL ECG No previous ECG available for comparison
--- NOTE | 2019-02-19 12:34 | EKG ---
[facility] [address] [place] [address] Test Date: 2019-02-19 Test Time: 00:56:45 Pat Name: MURALI ALBA Department: Room: Gender: F Hospice Patient Care Secretary: : 1960 Requested By: REGGIE FOOTE Order Number: [id number] Reading MD: Measurements Intervals [place] Rate: 160 P: [place]: QRS: 57 QRSD: 84 T: -42 QT: 284 QTc: 465 Interpretive Statements SUPRAVENTRICULAR TACHYCARDIA ST ABNORMALITY, POSSIBLE INFERIOR SUBENDOCARDIAL INJURY ABNORMAL ECG No previous ECG available for comparison
--- NOTE | 2019-02-19 12:34 | EKG ---
[facility] [address] [place] [address] Test Date: 2019-02-19 Test Time: 01:05:31 Pat Name: MURALI ALBA Department: Room: Gender: F Registry Np: : 1960 Requested By: REGGIE FOOTE Order Number: [id number] Reading MD: Measurements Intervals [place] Rate: 110 P: 24 [place]: 160 QRS: 73 QRSD: 86 T: 51 QT: 328 QTc: 449 Interpretive Statements SINUS TACHYCARDIA NON SPECIFIC ST DEPRESSION BORDERLINE ECG No previous ECG available for comparison
== END 2019-02-19 02:10 | disposition home or self-care (01) ==
LOC: ER 00:53
DX: I47.1 Supraventricular tachycardia (principal); R06.00 Dyspnea, unspecified; Z90.89 Acquired absence of other organs
CPT/HCPCS: 36415; 71045; 80053; 84443; 84484; 85025; 93005; 96374; 99285; J0153

== ENCOUNTER 2019-04-22 02:15 | Emergency (ER) | payer SELFPAY ==
[~2019-04-22] VITALS: Ht 172.7 cm; Wt 64.9 kg
[2019-04-22] MEDS ORDERED: ASPIRIN CHEWABLE 81 MG TABLET. PO ONE (02:30)
[2019-04-22] MEDS ORDERED: ADENOSINE 6 MG/2 ML VIAL. IV ONE (02:30)
[2019-04-22] MEDS ORDERED: IV NORMAL SALINE 1000ML BAG 1,000 ML IV SCH (02:30)
--- NOTE | 2019-04-22 02:31 | PHYS DOC ---
Past Medical History Past Medical History: Seizure, Other Additional Past Medical Histor: SVT Past Surgical History: Tonsillectomy Alcohol Use: None Drug Use: None Adult General Chief Complaint Chief Complaint: CHEST PAIN HPI HPI Patient is a 58-year-old female who presents with complaint of chest pain and symptoms of SVT. Patient states that she developed chest pain approximately 20 minutes ago and she states that she checked her heart rate at home and found that it was in the 180s. Patient states that she has been worked up a number of times and states that nothing abnormal is ever found. She denies any caffeine use and admits to only 2-3 cigarettes per week. It's pain in her chest is mo derate and states the pain is worsened with exertion. She denies any nausea, vomiting or diaphoresis.[] Review of Systems Review of Systems Constitutional: Denies fever or chills [] Respiratory: Complains of shortness of breath [] Cardiovascular: No additional information not addressed in HPI [] GI: Denies abdominal pain, nausea, vomiting or diarrhea [] Integument: Denies rash or skin lesions [] Neurologic: Denies headache, focal weakness or sensory changes [] All other systems were reviewed and found to be within normal limits, except as documented in this note. Current Medications Current Medications Current Medications Medications (Trade) Dose Ordered Sig/[facility] Start Time Stop Time Status Last Admin Dose Admin Adenosine (Adenocard) 6 mg 1X ONCE 04/22/19 02:30 04/22/19 02:31 DC 04/22/19 02:37 6 MG Aspirin (Children'S Aspirin) 324 mg 1X ONCE 04/22/19 02:30 04/22/19 02:31 DC 04/22/19 03:04 324 MG Sodium Chloride 1,000 ml @ 1,000 mls/hr Q1H 04/22/19 02:30 04/22/19 03:29 DC 04/22/19 03:05 1,000 MLS/HR Allergies Allergies Allergies Coded Allergies Type Severity Reaction Last Updated Verified No Known Drug Allergies 02/08/14 No Physical Exam Physical Exam Constitutional: Well developed, well nourished, no acute distress, non-toxic appearance. [] HENT: Normocephalic, atraumatic, bilateral external ears normal, oropharynx moist, no oral exudates, nose normal. [] Eyes: PERRLA, EOMI, conjunctiva normal, no discharge. [] Neck: Normal range of motion, no tenderness, supple, no stridor. [] Cardiovascular: Markedly tachycardic rate with regular rhythm[] Lungs & Thorax: Bilateral breath sounds clear to auscultation [] Abdomen: Bowel sounds normal, soft. [] Skin: Warm, dry, no erythema, no rash. [] Extremities: No tenderness, no cyanosis, no clubbing, ROM intact. [] Neurologic: Alert and oriented X 3, no focal deficits noted. [] Current Patient Data Vital Signs Vital Signs Date Time Temp Pulse Resp B/P (MAP) Pulse Ox O2 Delivery O2 Flow Rate FiO2 04/22/19 02:50 99 20 162/89 (113) 97 Room Air 04/22/19 02:48 99.0 99.0 Lab Values Laboratory Tests Test 04/22/19 02:27 White Blood Count 13.3 x10^3/uL (4.0-11.0) H Red Blood Count 5.55 x10^6/uL (3.50-5.40) H Hemoglobin 15.8 g/dL (12.0-15.5) H Hematocrit 47.1 % (36.0-47.0) H Mean Corpuscular Volume 85 fL (79-100) Mean Corpuscular Hemoglobin 28 pg (25-35) Mean Corpuscular Hemoglobin Concent 34 g/dL (31-37) Red Cell Distribution Width 15.2 % (11.5-14.5) H Platelet Count 218 x10^3/uL (140-400) Neutrophils (%) (Auto) 77 % (31-73) H Lymphocytes (%) (Auto) 17 % (24-48) L Monocytes (%) (Auto) 6 % (0-9) Eosinophils (%) (Auto) 0 % (0-3) Basophils (%) (Auto) 1 % (0-3) Neutrophils # (Auto) 10.3 x10^3/uL (1.8-7.7) H Lymphocytes # (Auto) 2.2 x10^3/uL (1.0-4.8) Monocytes # (Auto) 0.7 x10^3/uL (0.0-1.1) Eosinophils # (Auto) 0.0 x10^3/uL (0.0-0.7) Basophils # (Auto) 0.1 x10^3/uL (0.0-0.2) Sodium Level 139 mmol/L (136-145) Potassium Level 3.6 mmol/L (3.5-5.1) Chloride Level 100 mmol/L (98-107) Carbon Dioxide Level 25 mmol/L (21-32) Anion Gap 14 (6-14) Blood Urea Nitrogen 18 mg/dL (7-20) Creatinine 1.2 mg/dL (0.6-1.0) H Estimated GFR (Cockcroft-Gault) 46.5 BUN/Creatinine Ratio 15 (6-20) Glucose Level 145 mg/dL (70-99) H Calcium Level 9.7 mg/dL (8.5-10.1) Magnesium Level 2.2 mg/dL (1.8-2.4) Total Bilirubin 0.5 mg/dL (0.2-1.0) Aspartate Amino Transferase (AST) 23 U/L (15-37) Alanine Aminotransferase (ALT) 24 U/L (14-59) Alkaline Phosphatase 117 U/L (46-116) H Troponin I Quantitative < 0.017 ng/mL (0.000-0.055) UH-Clq-N-Type Natriuretic Peptide 41 pg/mL (0-124) Total Protein 8.8 g/dL (6.4-8.2) H Albumin 4.7 g/dL (3.4-5.0) Albumin/Globulin Ratio 1.1 (1.0-1.7) Thyroid Stimulating Hormone (TSH) 1.934 uIU/mL (0.358-3.74) Laboratory Tests 04/22/19 02:27 Laboratory Tests 04/22/19 02:27 EKG EKG [] Interpretation Time: EKG demonstrates SVT with rate of 177. Patient given dose of Adenocard 6 mg IV and post treatment, EKG demonstrated sinus rhythm with rate of 101. A final EKG was completed at 3:53 AM and demonstrated normal sinus rhythm with rate of 94. No ST segment abnormalities noted on this exam. Radiology/Procedures Radiology/Procedures [] Course & Med Decision Making Course & Med Decision Making Pertinent Labs and Imaging studies reviewed. (See chart for details) [] Dragon Disclaimer Dragon Disclaimer This electronic medical record was generated, in whole or in part, using a voice recognition dictation system. Departure Departure Impression: Primary Impression: SVT (supraventricular tachycardia) Disposition: 01 HOME, SELF-CARE Condition: STABLE Referrals: NO PCP (PCP) Patient Instructions: Supraventricular Tachycardia JAYLON SALOMON Jr. DO Apr 22, 2019 02:31
[2019-04-22 02:47] LABS: BASO # 0.1 x10^3/uL (0.0-0.2); BASO % 1 % (0-3); EOS % 0 % (0-3); HEMATOCRIT 47.1 % (36.0-47.0); HEMOGLOBIN 15.8 g/dL (12.0-15.5); LYMPH # 2.2 x10^3/uL (1.0-4.8); LYMPH % 17 % (24-48); MEAN CORPUSCULAR HEMOGLOBIN 28 pg (25-35); MEAN CORPUSCULAR HGB CONC 34 g/dL (31-37); MEAN CORPUSCULAR VOLUME 85 fL (79-100); MONO # 0.7 x10^3/uL (0.0-1.1); MONO % 6 % (0-9); NEUT # 10.3 x10^3/uL (1.8-7.7); NEUT % 77 % (31-73); PLATELET COUNT 218 x10^3/uL (140-400); RED BLOOD COUNT 5.55 x10^6/uL (3.50-5.40); RED CELL DISTRIBUTION WIDTH 15.2 % (11.5-14.5); WHITE BLOOD COUNT 13.3 x10^3/uL (4.0-11.0)
[2019-04-22 03:02] LABS: CALCIUM 9.7 mg/dL (8.5-10.1); CREATININE 1.2 mg/dL (0.6-1.0); GFR 46.5; POTASSIUM 3.6 mmol/L (3.5-5.1)
[2019-04-22 03:07] LABS: ALBUMIN 4.7 g/dL (3.4-5.0); ALBUMIN/GLOBULIN RATIO 1.1 (1.0-1.7); MAGNESIUM 2.2 mg/dL (1.8-2.4); TOTAL BILIRUBIN 0.5 mg/dL (0.2-1.0); TOTAL PROTEIN 8.8 g/dL (6.4-8.2)
[2019-04-22 05:56] VITALS: BP 168/93
--- NOTE | 2019-04-22 08:11 | RAD ---
AP chest. HISTORY: Chest pain AP view was taken of the chest. Lungs are clear. Heart is normal in size without heart failure. There is no effusion. IMPRESSION: 1. No acute chest disease. Electronically signed by: Marshall Berry MD (04/22/2019 8:08 AM) [facility]
--- NOTE | 2019-04-23 07:07 | EKG ---
[facility] [address] [place] [address] Test Date: 2019-04-22 Test Time: 02:28:50 Pat Name: MURALI ALBA Department: Room: Gender: F Area Secretary: : 1960 Requested By: JAYLON SALOMON Order Number: [id number] Reading MD: Measurements Intervals [place] Rate: 177 P: [place]: QRS: 59 QRSD: 86 T: -65 QT: 264 QTc: 455 Interpretive Statements SUPRAVENTRICULAR TACHYCARDIA ST ABNORMALITY, POSSIBLE INFERIOR SUBENDOCARDIAL INJURY ABNORMAL ECG RI6.01 No previous ECG available for comparison
--- NOTE | 2019-04-23 07:37 | EKG ---
[facility] [address] [place] [address] Test Date: 2019-04-22 Test Time: 03:53:49 Pat Name: MURALI ALBA Department: Room: Gender: F Accounts Payable Professional: : 1960 Requested By: JAYLON SALOMON Order Number: [id number] Reading MD: Measurements Intervals [place] Rate: 94 P: 29 RI: 156 QRS: 65 QRSD: 88 T: 57 QT: 346 QTc: 438 Interpretive Statements SINUS RHYTHM NORMAL ECG RI6.01 No previous ECG available for comparison
== END 2019-04-22 04:45 | disposition home or self-care (01) ==
LOC: ER 02:15
DX: I47.1 Supraventricular tachycardia (principal); Z79.82 Long term (current) use of aspirin; Z90.89 Acquired absence of other organs
CPT/HCPCS: 36415; 71045; 80053; 83735; 83880; 84443; 84484; 85025; 93005; 96374; 99285; J0153; J7030

== ENCOUNTER 2019-05-05 19:04 | Emergency (ER) | payer SELFPAY ==
[~2019-05-05] VITALS: Ht 172.7 cm; Wt 64.9 kg
[2019-05-05] MEDS ORDERED: ADENOSINE 6 MG/2 ML VIAL. IV ONE ×2 (19:10→19:45)
[2019-05-05] MEDS ORDERED: ASPIRIN 325 MG TABLET ONE (19:20)
[2019-05-05 19:24] LABS: BASO # 0.1 x10^3/uL (0.0-0.2); BASO % 1 % (0-3); EOS # 0.1 x10^3/uL (0.0-0.7); EOS % 1 % (0-3); HEMATOCRIT 41.7 % (36.0-47.0); HEMOGLOBIN 14.1 g/dL (12.0-15.5); LYMPH % 32 % (24-48); MEAN CORPUSCULAR HEMOGLOBIN 29 pg (25-35); MEAN CORPUSCULAR HGB CONC 34 g/dL (31-37); MEAN CORPUSCULAR VOLUME 86 fL (79-100); MONO # 0.6 x10^3/uL (0.0-1.1); MONO % 7 % (0-9); NEUT # 5.5 x10^3/uL (1.8-7.7); NEUT % 59 % (31-73); PLATELET COUNT 191 x10^3/uL (140-400); RED BLOOD COUNT 4.85 x10^6/uL (3.50-5.40); RED CELL DISTRIBUTION WIDTH 15.6 % (11.5-14.5); WHITE BLOOD COUNT 9.2 x10^3/uL (4.0-11.0)
[2019-05-05] MEDS ORDERED: IV NORMAL SALINE 1000ML BAG 1,000 ML IV ONE (19:30)
[2019-05-05 19:34] LABS: PROTHROMBIN TIME PATIENT 12.2 SEC (11.7-14.0)
[2019-05-05 19:35] LABS: CALCIUM 8.4 mg/dL (8.5-10.1); CREATININE 1.2 mg/dL (0.6-1.0); GFR 46.5; POTASSIUM 3.6 mmol/L (3.5-5.1)
[2019-05-05 19:40] LABS: ALBUMIN 3.9 g/dL (3.4-5.0); ALBUMIN/GLOBULIN RATIO 1.2 (1.0-1.7); MAGNESIUM 2.1 mg/dL (1.8-2.4); TOTAL BILIRUBIN 0.5 mg/dL (0.2-1.0); TOTAL PROTEIN 7.2 g/dL (6.4-8.2)
[2019-05-05] MEDS ORDERED: ASPIRIN 325 MG TABLET PO ONE (19:45)
[2019-05-05 19:48] LABS: CREATINE KINASE 72 U/L (26-192)
--- NOTE | 2019-05-05 20:46 | PHYS DOC ---
Past Medical History Past Medical History: Seizure, Other Additional Past Medical Histor: SVT Past Surgical History: No Surgical History, Tonsillectomy Alcohol Use: None Drug Use: None Adult General Chief Complaint Chief Complaint: RAPID HEART RATE HPI HPI Patient is a 58 year old [f__sex] who presents with [] Review of Systems Review of Systems Constitutional: Denies fever or chills [] Eyes: Denies change in visual acuity, redness, or eye pain [] HENT: Denies nasal congestion or sore throat [] Respiratory: Denies cough or shortness of breath [] Cardiovascular: No additional information not addressed in HPI [] GI: Denies abdominal pain, nausea, vomiting, bloody stools or diarrhea [] : Denies dysuria or hematuria [] Musculoskeletal: Denies back pain or joint pain [] Integument: Denies rash or skin lesions [] Neurologic: Denies headache, focal weakness or sensory changes [] Endocrine: Denies polyuria or polydipsia [] All other systems were reviewed and found to be within normal limits, except as documented in this note. Current Medications Current Medications Current Medications Medications (Trade) Dose Ordered Sig/Rohith Start Time Stop Time Status Last Admin Dose Admin Adenosine (Adenocard) 6 mg 1X ONCE 05/05/19 19:45 05/05/19 19:46 DC Aspirin (Yovani Aspirin) 325 mg STK-MED ONCE 05/05/19 19:20 05/05/19 19:20 DC Sodium Chloride 1,000 ml @ 1,000 mls/hr 1X ONCE 05/05/19 19:30 05/05/19 20:29 DC 05/05/19 19:36 1,000 MLS/HR Allergies Allergies Allergies Coded Allergies Type Severity Reaction Last Updated Verified No Known Drug Allergies 02/08/14 No Physical Exam Physical Exam Constitutional: Well developed, well nourished, no acute distress, non-toxic appearance. [] HENT: Normocephalic, atraumatic, bilateral external ears normal, oropharynx moist, no oral exudates, nose normal. [] Eyes: PERRLA, EOMI, conjunctiva normal, no discharge. [] Neck: Normal range of motion, no tenderness, supple, no stridor. [] Cardiovascular:Heart rate regular rhythm, no murmur [] Lungs & Thorax: Bilateral breath sounds clear to auscultation [] Abdomen: Bowel sounds normal, soft, no tenderness, no masses, no pulsatile masses. [] Skin: Warm, dry, no erythema, no rash. [] Back: No tenderness, no CVA tenderness. [] Extremities: No tenderness, no cyanosis, no clubbing, ROM intact, no edema. [] Neurologic: Alert and oriented X 3, normal motor function, normal sensory function, no focal deficits noted. [] Psychologic: Affect normal, judgement normal, mood normal. [] Current Patient Data Vital Signs Vital Signs Date Time Temp Pulse Resp B/P (MAP) Pulse Ox O2 Delivery O2 Flow Rate FiO2 05/05/19 21:06 98.3 91 16 118/72 (87) 98 Room Air 98.3 Lab Values Laboratory Tests Test 05/05/19 19:10 White Blood Count 9.2 x10^3/uL (4.0-11.0) Red Blood Count 4.85 x10^6/uL (3.50-5.40) Hemoglobin 14.1 g/dL (12.0-15.5) Hematocrit 41.7 % (36.0-47.0) Mean Corpuscular Volume 86 fL (79-100) Mean Corpuscular Hemoglobin 29 pg (25-35) Mean Corpuscular Hemoglobin Concent 34 g/dL (31-37) Red Cell Distribution Width 15.6 % (11.5-14.5) H Platelet Count 191 x10^3/uL (140-400) Neutrophils (%) (Auto) 59 % (31-73) Lymphocytes (%) (Auto) 32 % (24-48) Monocytes (%) (Auto) 7 % (0-9) Eosinophils (%) (Auto) 1 % (0-3) Basophils (%) (Auto) 1 % (0-3) Neutrophils # (Auto) 5.5 x10^3/uL (1.8-7.7) Lymphocytes # (Auto) 3.0 x10^3/uL (1.0-4.8) Monocytes # (Auto) 0.6 x10^3/uL (0.0-1.1) Eosinophils # (Auto) 0.1 x10^3/uL (0.0-0.7) Basophils # (Auto) 0.1 x10^3/uL (0.0-0.2) Prothrombin Time 12.2 SEC (11.7-14.0) Prothrombin Time INR 0.9 (0.8-1.1) Sodium Level 145 mmol/L (136-145) Potassium Level 3.6 mmol/L (3.5-5.1) Chloride Level 108 mmol/L (98-107) H Carbon Dioxide Level 27 mmol/L (21-32) Anion Gap 10 (6-14) Blood Urea Nitrogen 23 mg/dL (7-20) H Creatinine 1.2 mg/dL (0.6-1.0) H Estimated GFR (Cockcroft-Gault) 46.5 BUN/Creatinine Ratio 19 (6-20) Glucose Level 124 mg/dL (70-99) H Calcium Level 8.4 mg/dL (8.5-10.1) L Magnesium Level 2.1 mg/dL (1.8-2.4) Total Bilirubin 0.5 mg/dL (0.2-1.0) Aspartate Amino Transferase (AST) 22 U/L (15-37) Alanine Aminotransferase (ALT) 15 U/L (14-59) Alkaline Phosphatase 90 U/L (46-116) Creatine Kinase 72 U/L (26-192) Creatine Kinase MB (Mass) 1.6 ng/mL (0.0-3.6) Creatine Kinase MB Relative Index % (0-4) Troponin I Quantitative < 0.017 ng/mL (0.000-0.055) AF-Zpn-N-Type Natriuretic Peptide 33 pg/mL (0-124) Total Protein 7.2 g/dL (6.4-8.2) Albumin 3.9 g/dL (3.4-5.0) Albumin/Globulin Ratio 1.2 (1.0-1.7) Lipase 175 U/L (73-393) Laboratory Tests 05/05/19 19:10 Laboratory Tests 05/05/19 19:10 EKG EKG @1910 SVT at 169bpm, ST depression I-IIII, aVF, V3-V6 @1921 (s/p adenosine 6mg): Sinus tachycardia at 116bpm, NO ST elevation Radiology/Procedures Radiology/Procedures [] Course & Med Decision Making Course & Med Decision Making Pertinent Labs and Imaging studies reviewed. (See chart for details) [] Dragon Disclaimer Dragon Disclaimer This electronic medical record was generated, in whole or in part, using a voice recognition dictation system. Departure Departure Impression: Primary Impression: SVT (supraventricular tachycardia) Disposition: 01 HOME, SELF-CARE Condition: IMPROVED Referrals: NO PCP (PCP) EYAD INMAN MD Patient Instructions: Supraventricular Tachycardia, [id number] SHANNON RAYA DO May 05, 2019 20:46
[2019-05-05 21:06] VITALS: BP 118/72
--- NOTE | 2019-05-06 10:43 | EKG ---
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
== END 2019-05-05 21:05 | disposition home or self-care (01) ==
LOC: ER 19:04
DX: I47.1 Supraventricular tachycardia (principal); Z79.82 Long term (current) use of aspirin; Z90.89 Acquired absence of other organs
CPT/HCPCS: 36415; 80053; 82553; 83690; 83735; 83880; 84484; 85025; 85610; 93005; 99285; J7030

== ENCOUNTER 2019-05-08 18:38 | Emergency (ER) | payer SELFPAY ==
[~2019-05-08] VITALS: Ht 172.7 cm; Wt 64.9 kg
[2019-05-08] MEDS ORDERED: ADENOSINE 6 MG/2 ML VIAL. IV ONE (18:45)
[2019-05-08] MEDS ORDERED: IV NORMAL SALINE 1000ML BAG 1,000 ML IV ONE (18:45)
--- NOTE | 2019-05-08 19:00 | PHYS DOC ---
Past Medical History Past Medical History: Seizure, Other Additional Past Medical Histor: SVT Past Surgical History: No Surgical History, Tonsillectomy Alcohol Use: None Drug Use: None Adult General Chief Complaint Chief Complaint: RAPID HEART RATE HPI HPI Patient is a 58 year old female who presents with palpitations and shortness of breath. The patient was noticed to have a heart rate of 200 at triage. The patient states that she has a history of SVT and has had multiple episodes in the past. Patient states that she has tried multiple things to stop these in the past without success. She states the symptoms started about 15 minutes prior to arrival. Denies any pain. Review of Systems Review of Systems Constitutional: Denies fever or chills [] Eyes: Denies change in visual acuity, redness, or eye pain [] HENT: Denies nasal congestion or sore throat [] Respiratory: Reports shortness of breath. Cardiovascular: No additional information not addressed in HPI [] GI: Denies abdominal pain, nausea, vomiting, bloody stools or diarrhea [] : Denies dysuria or hematuria [] Musculoskeletal: Denies back pain or joint pain [] Integument: Denies rash or skin lesions [] Neurologic: Denies headache, focal weakness or sensory changes [] Endocrine: Denies polyuria or polydipsia [] Complete systems were reviewed and found to be within normal limits, except as documented in this note. Current Medications Current Medications Current Medications Medications (Trade) Dose Ordered Sig/Rohith Start Time Stop Time Status Last Admin Dose Admin Adenosine (Adenocard) 6 mg 1X ONCE 05/08/19 18:45 05/08/19 18:47 DC 05/08/19 19:00 6 MG Sodium Chloride 1,000 ml @ 1,000 mls/hr 1X ONCE 05/08/19 18:45 05/08/19 19:44 05/08/19 19:00 1,000 MLS/HR Allergies Allergies Allergies Coded Allergies Type Severity Reaction Last Updated Verified No Known Drug Allergies 02/08/14 No Physical Exam Physical Exam Constitutional: Well developed, well nourished, no acute distress, toxic appearance. HENT: Normocephalic, atraumatic, bilateral external ears normal, oropharynx moist, no oral exudates, nose normal. [] Eyes: PERRLA, EOMI, conjunctiva normal, no discharge. [] Neck: Normal range of motion, no tenderness, supple, no stridor. [] Cardiovascular:Heart rate tachycardic, no murmur [] Lungs & Thorax: Bilateral breath sounds clear to auscultation [] Abdomen: Bowel sounds normal, soft, no tenderness, no masses, no pulsatile masses. [] Skin: clammy,, no erythema, no rash. [] Back: No tenderness, no CVA tenderness. [] Extremities: No tenderness, no cyanosis, no clubbing, ROM intact, no edema. [] Neurologic: Alert and oriented X 3, normal motor function, normal sensory function, no focal deficits noted. [] Psychologic: Affect normal, judgement normal, mood normal. [] Current Patient Data Vital Signs Vital Signs Date Time Temp Pulse Resp B/P (MAP) Pulse Ox O2 Delivery O2 Flow Rate FiO2 05/08/19 19:11 88 16 149/75 (99) 100 Room Air 05/08/19 18:40 97.6 97.6 EKG EKG Ekg's interpreted by Dr. J Luis ALEXANDER with rate of 180. 2nd EKG was continuous as patient converted from SVT to Sinus. 3rd EKG shows sinus tachycardia at rate of 111. No STEMI. Radiology/Procedures Radiology/Procedures [] Course & Med Decision Making Course & Med Decision Making Pertinent Labs and Imaging studies reviewed. (See chart for details) The patient is in SVT on arrival. 6 mg of adenosine was ordered as well as 1 L of NS. Patient converted with 6 of adenosine to Sinus. Discussed with patient the need for labs. Patient refuses labs stating that she doesn't want them and would rather just be sent home. Educated patient on need for labs. Patient still declines labs. Will observe patient for 1 hour and then discharge. Patient HR is 87 at 1940. She is in Sinus rhythm. She states that she feels much better. Still does not want labs. Will d/c home to follow up with PCP. Summer Disclaimer Summer Disclaimer This electronic medical record was generated, in whole or in part, using a voice recognition dictation system. Departure Departure Impression: Primary Impression: SVT (supraventricular tachycardia) Disposition: HOME, SELF-CARE Condition: STABLE Referrals: NO PCP (PCP) Patient Instructions: Supraventricular Tachycardia Additional Instructions: Thank you for visiting [facility]. We appreciate you trusting us with your care. If any additional problems come up don't hesitate to return to visit us. Please follow up with your primary care provider so they can plan additional care if needed and know about the problem that you had. If symptoms worsen come back to the Emergency Department. Any concerning symptoms that start such as chest pain, shortness of air, weakness or numbness on one side of the body, running high fevers or any other concerning symptoms return to the ER. SHANNON QUINTERO APRN May 08, 2019 19:00
[2019-05-08 19:11] VITALS: BP 149/75
--- NOTE | 2019-05-09 08:02 | EKG ---
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
== END 2019-05-08 19:52 | disposition home or self-care (01) ==
LOC: ER 18:38
DX: I47.1 Supraventricular tachycardia (principal)
CPT/HCPCS: 93005; 96374; 99284; J0153; J7030

== ENCOUNTER 2019-06-06 02:07 | Emergency (ER) | payer SELFPAY ==
[~2019-06-06] VITALS: Ht 165.1 cm; Wt 60.3 kg
[2019-06-06] MEDS ORDERED: ADENOSINE 6 MG/2 ML VIAL. IV ONE (02:10)
--- NOTE | 2019-06-06 02:10 | PHYS DOC ---
Past Medical History Past Medical History: Seizure, Other Additional Past Medical Histor: SVT Past Surgical History: Tonsillectomy Additional Past Surgical Histo: bone removed from foot, lumpectomy Alcohol Use: None Drug Use: None Adult General Chief Complaint Chief Complaint: RAPID HEART RATE [facility] HPI Patient is a 59 year old female with history of SVT, presented to ER today for evaluation of abnormal heart rate, she woke up with heart palpitation about 20 minutes ago. She has history of SVT for a long time, she is waiting for her Medicaid to kick in before she can do ablation. She is on Cardizem at home. She had been evaluated here numerous time for SVT. Patient denies any cough or fever. Patient denies any trouble breathing. All other ROS is negative unless otherwise noted in HPI Review of Systems Review of Systems See above Current Medications Current Medications Current Medications Medications (Trade) Dose Ordered Sig/Rohith Start Time Stop Time Status Last Admin Dose Admin Adenosine (Adenocard) 6 mg 1X ONCE 06/06/19 02:15 06/06/19 02:18 DC 06/06/19 02:39 6 MG Allergies Allergies Allergies Coded Allergies Type Severity Reaction Last Updated Verified No Known Drug Allergies 02/08/14 No Physical Exam Physical Exam See above Constitutional: Well developed, well nourished, no acute distress, non-toxic appearance. [] HENT: Normocephalic, atraumatic, bilateral external ears normal, oropharynx moist, no oral exudates, nose normal. [] Eyes: PERRLA, EOMI, conjunctiva normal, no discharge. [] Neck: Normal range of motion, no tenderness, supple, no stridor. [] Cardiovascular: rapid heart rate, no murmur [] Lungs & Thorax: Bilateral breath sounds clear to auscultation [] Abdomen: Bowel sounds normal, soft, no tenderness, no masses, no pulsatile masses. [] Skin: Warm, dry, no erythema, no rash. [] Back: No tenderness, no CVA tenderness. [] Extremities: No tenderness, no cyanosis, no clubbing, ROM intact, no edema. [] Neurologic: Alert and oriented X 3, normal motor function, normal sensory function, no focal deficits noted. [] Psychologic: Affect normal, judgement normal, mood normal. [] Current Patient Data Vital Signs Vital Signs Date Time Temp Pulse Resp B/P (MAP) Pulse Ox O2 Delivery O2 Flow Rate FiO2 06/06/19 02:10 97.8 168 18 133/81 (98) 98 Room Air 97.8 Lab Values Laboratory Tests Test 06/06/19 02:10 White Blood Count 13.3 x10^3/uL (4.0-11.0) H Red Blood Count 5.12 x10^6/uL (3.50-5.40) Hemoglobin 14.7 g/dL (12.0-15.5) Hematocrit 43.7 % (36.0-47.0) Mean Corpuscular Volume 85 fL (79-100) Mean Corpuscular Hemoglobin 29 pg (25-35) Mean Corpuscular Hemoglobin Concent 34 g/dL (31-37) Red Cell Distribution Width 15.7 % (11.5-14.5) H Platelet Count 245 x10^3/uL (140-400) Neutrophils (%) (Auto) 63 % (31-73) Lymphocytes (%) (Auto) 29 % (24-48) Monocytes (%) (Auto) 6 % (0-9) Eosinophils (%) (Auto) 1 % (0-3) Basophils (%) (Auto) 1 % (0-3) Neutrophils # (Auto) 8.4 x10^3/uL (1.8-7.7) H Lymphocytes # (Auto) 3.9 x10^3/uL (1.0-4.8) Monocytes # (Auto) 0.8 x10^3/uL (0.0-1.1) Eosinophils # (Auto) 0.1 x10^3/uL (0.0-0.7) Basophils # (Auto) 0.1 x10^3/uL (0.0-0.2) Prothrombin Time 12.4 SEC (11.7-14.0) Prothrombin Time INR 1.0 (0.8-1.1) Activated Partial Thromboplast Time 25 SEC (24-38) Sodium Level 142 mmol/L (136-145) Potassium Level 4.1 mmol/L (3.5-5.1) Chloride Level 106 mmol/L (98-107) Carbon Dioxide Level 23 mmol/L (21-32) Anion Gap 13 (6-14) Blood Urea Nitrogen 20 mg/dL (7-20) Creatinine 1.1 mg/dL (0.6-1.0) H Estimated GFR (Cockcroft-Gault) 51.2 BUN/Creatinine Ratio 18 (6-20) Glucose Level 111 mg/dL (70-99) H Calcium Level 9.2 mg/dL (8.5-10.1) Magnesium Level 2.1 mg/dL (1.8-2.4) Total Bilirubin 0.5 mg/dL (0.2-1.0) Aspartate Amino Transferase (AST) 22 U/L (15-37) Alanine Aminotransferase (ALT) 11 U/L (14-59) L Alkaline Phosphatase 102 U/L (46-116) Troponin I Quantitative < 0.017 ng/mL (0.000-0.055) HT-Kfw-I-Type Natriuretic Peptide 29 pg/mL (0-124) Total Protein 7.5 g/dL (6.4-8.2) Albumin 4.1 g/dL (3.4-5.0) Albumin/Globulin Ratio 1.2 (1.0-1.7) Thyroid Stimulating Hormone (TSH) 1.409 uIU/mL (0.358-3.74) Free Thyroxine 0.96 ng/dL (0.76-1.46) Laboratory Tests 06/06/19 02:10 Laboratory Tests 06/06/19 02:10 EKG EKG EKG # 1: READ BY THIS PHYSICIAN AT 0215, RATE OF 159 BPM, SVT, NO STEMI. EKG # 2 after 6 mg of Adenosine iv bolus, rate of 95 bpm, sinus rhythm, NO STEMI.[] Radiology/Procedures Radiology/Procedures CHEST XRAY: NO ACUTE DISEASE Course & Med Decision Making Course & Med Decision Making Pertinent Labs and Imaging studies reviewed. (See chart for details) Patient was in SVT, She was given 6 mg Adenosine IV pushed, she felt much better. Patient did not want to stay in the hospital. She wanted to go home. She is on cardizem at home. Dragon Disclaimer Dragon Disclaimer This electronic medical record was generated, in whole or in part, using a voice recognition dictation system. Departure Departure Impression: Primary Impression: SVT (supraventricular tachycardia) Disposition: HOME, SELF-CARE Condition: IMPROVED Referrals: EYAD INMAN MD PLEASE CALL THIS [facility] [employer] FOR FOLLOW UP THIS WEEK. Patient Instructions: Supraventricular Tachycardia ABBIE BALDERRAMA DO Jun 06, 2019 02:10
[2019-06-06] MEDS: ADENOSINE 6 MG/2 ML VIAL. IV ONE (02:18)
[2019-06-06 02:29] LABS: BASO # 0.1 x10^3/uL (0.0-0.2); BASO % 1 % (0-3); EOS # 0.1 x10^3/uL (0.0-0.7); EOS % 1 % (0-3); HEMATOCRIT 43.7 % (36.0-47.0); HEMOGLOBIN 14.7 g/dL (12.0-15.5); LYMPH # 3.9 x10^3/uL (1.0-4.8); LYMPH % 29 % (24-48); MEAN CORPUSCULAR HEMOGLOBIN 29 pg (25-35); MEAN CORPUSCULAR HGB CONC 34 g/dL (31-37); MEAN CORPUSCULAR VOLUME 85 fL (79-100); MONO # 0.8 x10^3/uL (0.0-1.1); MONO % 6 % (0-9); NEUT # 8.4 x10^3/uL (1.8-7.7); NEUT % 63 % (31-73); PLATELET COUNT 245 x10^3/uL (140-400); RED BLOOD COUNT 5.12 x10^6/uL (3.50-5.40); RED CELL DISTRIBUTION WIDTH 15.7 % (11.5-14.5); WHITE BLOOD COUNT 13.3 x10^3/uL (4.0-11.0)
[2019-06-06 02:39] LABS: PROTHROMBIN TIME PATIENT 12.4 SEC (11.7-14.0)
[2019-06-06 02:46] LABS: CALCIUM 9.2 mg/dL (8.5-10.1); CREATININE 1.1 mg/dL (0.6-1.0); GFR 51.2; POTASSIUM 4.1 mmol/L (3.5-5.1)
[2019-06-06 02:51] LABS: ALBUMIN 4.1 g/dL (3.4-5.0); ALBUMIN/GLOBULIN RATIO 1.2 (1.0-1.7); MAGNESIUM 2.1 mg/dL (1.8-2.4); TOTAL BILIRUBIN 0.5 mg/dL (0.2-1.0); TOTAL PROTEIN 7.5 g/dL (6.4-8.2)
[2019-06-06 02:59] LABS: FREE T4 0.96 ng/dL (0.76-1.46); THYROID STIM HORMONE (TSH) 1.409 uIU/mL (0.358-3.74)
[2019-06-06 03:10] VITALS: BP 139/81
--- NOTE | 2019-06-06 03:30 | RAD ---
PORTABLE CHEST 1V INDICATION: Chest pain. COMPARISON STUDY: 04/22/2019. FINDINGS: Lungs: Normal lung volume. No pulmonary mass or consolidation. The tracheobronchial tree and hilar structures are normal. Pleura: No pleural effusion or pneumothorax. Heart and Mediastinum: The cardiomediastinal silhouette is normal. The great vessels of the thorax are normal. Bones and Soft Tissues: The bones and soft tissues are within normal limits. IMPRESSION: No acute cardiopulmonary process. Electronically signed by: Harpal Matthew MD (06/06/2019 3:28 AM) [facility]
--- NOTE | 2019-06-06 05:50 | EKG ---
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
== END 2019-06-06 03:42 | disposition home or self-care (01) ==
LOC: ER 02:07
DX: I47.1 Supraventricular tachycardia (principal); Z90.89 Acquired absence of other organs
CPT/HCPCS: 36415; 71045; 80053; 83735; 83880; 84439; 84443; 84484; 85025; 85610; 85730; 93005; 96374; 99285; J0153

== ENCOUNTER 2019-07-16 09:09 | Emergency (ER) | payer SELFPAY ==
[~2019-07-16] VITALS: Ht 172.7 cm; Wt 64.4 kg
--- NOTE | 2019-07-16 09:37 | PHYS DOC ---
Past Medical History Past Medical History: CAD Additional Past Medical Histor: svt Past Surgical History: Tonsillectomy Additional Past Surgical Histo: bone removed from foot, lumpectomy Alcohol Use: None Drug Use: None Adult General Chief Complaint Chief Complaint: RAPID HEART RATE HPI HPI 59-year-old female presents to the emergency department with complaints of palpitations, fast heart rate. States this started prostate 15 minutes prior to her arrival. She has a history of SVT, she is currently on diltiazem. She describes nausea, shortness of breath, no chest pain. Patient refuses laboratory workup. EKG reveals evidence of SVT. Review of Systems Review of Systems Constitutional: Denies fever or chills [] Eyes: Denies change in visual acuity, redness, or eye pain [] HENT: Denies nasal congestion or sore throat [] Respiratory: Denies cough or shortness of breath [] Cardiovascular: No additional information not addressed in HPI [] GI: Denies abdominal pain, nausea, vomiting, bloody stools or diarrhea [] Musculoskeletal: Denies back pain or joint pain [] Neurologic: Denies headache, focal weakness or sensory changes [] All other systems were reviewed and found to be within normal limits, except as documented in this note. Current Medications Current Medications Current Medications Medications (Trade) Dose Ordered Sig/Rohith Start Time Stop Time Status Last Admin Dose Admin Adenosine (Adenocard) 6 mg 1X ONCE 07/16/19 09:45 07/16/19 09:46 DC 07/16/19 09:33 6 MG Sodium Chloride 1,000 ml @ 1,000 mls/hr 1X ONCE 07/16/19 09:45 07/16/19 10:44 07/16/19 09:33 1,000 MLS/HR Allergies Allergies Allergies Coded Allergies Type Severity Reaction Last Updated Verified No Known Drug Allergies 02/08/14 No Physical Exam Physical Exam Constitutional: Well developed, well nourished, no acute distress, non-toxic appearance. [] HENT: Normocephalic, atraumatic, bilateral external ears normal, oropharynx moist, no oral exudates, nose normal. [] Eyes: PERRLA, EOMI, conjunctiva normal, no discharge. [] Cardiovascular: Tachycardia Lungs & Thorax: Bilateral breath sounds clear to auscultation [] Abdomen: Bowel sounds normal, soft, no tenderness, no masses, no pulsatile masses. [] Skin: Warm, dry, no erythema, no rash. [] Back: No tenderness, no CVA tenderness. [] Extremities: No tenderness, no edema. [] Neurologic: Alert and oriented X 3, no focal deficits noted. [] Psychologic: Affect normal, judgement normal, mood normal. [] Current Patient Data Vital Signs Vital Signs Date Time Temp Pulse Resp B/P (MAP) Pulse Ox O2 Delivery O2 Flow Rate FiO2 07/16/19 09:41 88 18 127/73 (91) 100 Room Air 07/16/19 09:15 97.8 97.8 EKG EKG Initial EKG reviewed heart rate 181, SVT. Initial interpretation time 0 913 Status post adenosine 6 mg, heart rate 103, sinus tachycardia, normal axis and no evidence of acute ST elevation [place] appreciated interpretation time 0 923[] Radiology/Procedures Radiology/Procedures [] Course & Med Decision Making Course & Med Decision Making Pertinent Labs and Imaging studies reviewed. (See chart for details) []59-year-old female presents to the emergency department with complaints of palpitations, fast heart rate. States this started prostate 15 minutes prior to her arrival. She has a history of SVT, she is currently on diltiazem. She describes nausea, shortness of breath, no chest pain. Patient refuses laboratory workup. EKG reveals evidence of SVT. EKG reveals evidence of SVT, patient given 6 mg of adenosine with improvement of her rate to 100s. And patient refuses laboratory to be drawn. Repeat sinus tachycardia - HR 100's Re-examine patient 1015 - states she feels better and would like to discharge home Continue diltiazem Recommend follow up with Cardiology as an outpatient Dragon Disclaimer Dragmono Disclaimer This electronic medical record was generated, in whole or in part, using a voice recognition dictation system. Departure Departure Impression: Primary Impression: SVT (supraventricular tachycardia) Disposition: 01 HOME, SELF-CARE Condition: STABLE Referrals: NO PCP (PCP) Patient Instructions: Supraventricular Tachycardia, [id number] Additional Instructions: Recommend follow up with PCP 3 - 5 days Return to the ER with worsening symptoms, intractable pain, fever, altered mental status Tylenol/Motrin as needed for pain Recommend following up with Cardiology for further eval and treatment options KATHIE MENDIETA MD Jul 16, 2019 09:37
[2019-07-16 09:41] VITALS: BP 127/73
[2019-07-16] MEDS ORDERED: IV NORMAL SALINE 1000ML BAG 1,000 ML IV ONE (09:45)
[2019-07-16] MEDS ORDERED: ADENOSINE 6 MG/2 ML VIAL. IV ONE (09:45)
--- NOTE | 2019-07-16 10:13 | EKG ---
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
== END 2019-07-16 10:22 | disposition home or self-care (01) ==
LOC: ER 09:09
DX: I47.1 Supraventricular tachycardia (principal); I25.10 Atherosclerotic heart disease of native coronary artery without angina pectoris
CPT/HCPCS: 93005; 96374; 99284; J0153; J7030

== ENCOUNTER 2019-08-22 16:00 | Emergency (ER) | payer SELFPAY ==
[~2019-08-22] VITALS: Ht 172.7 cm; Wt 61.2 kg
[2019-08-22] MEDS ORDERED: ADENOSINE 6 MG/2 ML VIAL. IV ONE (16:03)
[2019-08-22] MEDS ORDERED: IV NORMAL SALINE 1000ML BAG 1,000 ML IV STA (16:13)
[2019-08-22] MEDS ORDERED: ADENOSINE 6 MG/2 ML VIAL. IV STA (16:13)
--- NOTE | 2019-08-22 16:18 | EKG ---
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
--- NOTE | 2019-08-22 16:19 | PHYS DOC ---
Past Medical History Past Medical History: CAD Additional Past Medical Histor: svt Past Surgical History: Tonsillectomy Additional Past Surgical Histo: bone removed from foot, lumpectomy Alcohol Use: None Drug Use: None Adult General Chief Complaint Chief Complaint: RAPID HEART RATE HPI HPI Patient is a 59 year old female who presents with palpitations. The patient reports about 30 meds prior to arrival she started feeling these palpitations. Patient has a history SVT and states that she sees a spray painter and is due to have a procedure at some point. No other complaints. Review of Systems Review of Systems Constitutional: Denies fever or chills [] Eyes: Denies change in visual acuity, redness, or eye pain [] HENT: Denies nasal congestion or sore throat [] Respiratory: Denies cough or shortness of breath [] Cardiovascular: No additional information not addressed in HPI [] GI: Denies abdominal pain, nausea, vomiting, bloody stools or diarrhea [] : Denies dysuria or hematuria [] Musculoskeletal: Denies back pain or joint pain [] Integument: Denies rash or skin lesions [] Neurologic: Denies headache, focal weakness or sensory changes [] Endocrine: Denies polyuria or polydipsia [] Complete systems were reviewed and found to be within normal limits, except as documented in this note. Current Medications Current Medications Current Medications Medications (Trade) Dose Ordered Sig/Rohith Start Time Stop Time Status Last Admin Dose Admin Adenosine (Adenocard) 6 mg 1X STAT 08/22/19 16:13 08/22/19 16:21 DC 08/22/19 16:10 6 MG Sodium Chloride 1,000 ml @ 1,000 mls/hr 1X STAT 08/22/19 16:13 08/22/19 17:12 08/22/19 16:10 1,000 MLS/HR Allergies Allergies Allergies Coded Allergies Type Severity Reaction Last Updated Verified No Known Drug Allergies 02/08/14 No Physical Exam Physical Exam Constitutional: Well developed, well nourished, no acute distress, non-toxic appearance. [] HENT: Normocephalic, atraumatic, bilateral external ears normal, oropharynx moist, no oral exudates, nose normal. [] Eyes: PERRLA, EOMI, conjunctiva normal, no discharge. [] Neck: Normal range of motion, no tenderness, supple, no stridor. [] Cardiovascular:Heart rate tachycardic, no murmur [] Lungs & Thorax: Bilateral breath sounds clear to auscultation [] Skin: Warm, dry, no erythema, no rash. [] Back: No tenderness, no CVA tenderness. [] Extremities: No tenderness, no cyanosis, no clubbing, ROM intact, no edema. [] Neurologic: Alert and oriented X 3, normal motor function, normal sensory function, no focal deficits noted. [] Psychologic: Affect normal, judgement normal, mood normal. [] Current Patient Data Vital Signs Vital Signs Date Time Temp Pulse Resp B/P (MAP) Pulse Ox O2 Delivery O2 Flow Rate FiO2 08/22/19 16:15 97.7 178 20 162/112 (129) 100 Room Air 97.7 EKG EKG EKG interpreted by Dr. Carlton SVT with rate of 174 EKG after conversion, interpreted by Dr. Carlton Sinus tachycardia with rate of 105. No STEMI. Radiology/Procedures Radiology/Procedures [] Course & Med Decision Making Course & Med Decision Making Pertinent Labs and Imaging studies reviewed. (See chart for details) This patient is well-known to me as as had her before. The patient has had multiple bouts of SVT in the past. The patient presented today feeling that her heart rate was tachycardic. On arrival to the ER we had an EKG that showed that she was in SVT with a rate of 174. We gave 6 mg adenosine and she converted to sinus tachycardic with a rate about 115. Discussed performing labs on the patient to ensure there is not something causing the SVT. The patient declines labs and does not want labs at this time. Discussed with patient and she agreed to let us watch her and observe her to make sure she is not go back and SVT. Discussed the risks and benefits of getting labs done and not getting them down. Discussed that we might miss something without labs. She states that she does not want labs and never show anything. 1730: After observation the patient has stayed in sinus rhythm and her heart rate has decreased to 90. The patient is requesting discharge and still is declining labs. Will discharge patient home. Dragon Disclaimer Dragon Disclaimer This electronic medical record was generated, in whole or in part, using a voice recognition dictation system. Departure Departure Impression: Primary Impression: SVT (supraventricular tachycardia) Disposition: HOME, SELF-CARE Condition: STABLE Referrals: NO PCP (PCP) Patient Instructions: Supraventricular Tachycardia Additional Instructions: Thank you for visiting [facility]. We appreciate you trusting us with your care. If any additional problems come up don't hesitate to return to visit us. Please follow up with your primary care provider so they can plan additional care if needed and know about the problem that you had. If symptoms worsen come back to the Emergency Department. Any concerning symptoms that start such as chest pain, shortness of air, weakness or numbness on one side of the body, running high fevers or any other concerning symptoms return to the ER. Please follow up with your spray painter and your primary care doctor. Please realize that because we were unable to draw labs were unable to fully evaluate you today. Please return to the ER if you started feeling palpitations, or any other concerning symptoms. SHANNON QUINTERO APRN Aug 22, 2019 16:19
--- NOTE | 2019-08-22 16:19 | EKG ---
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
[2019-08-22 17:15] VITALS: BP 118/66
== END 2019-08-22 17:30 | disposition home or self-care (01) ==
LOC: ER 16:00
DX: I47.1 Supraventricular tachycardia (principal); I25.10 Atherosclerotic heart disease of native coronary artery without angina pectoris; Z90.89 Acquired absence of other organs
CPT/HCPCS: 93005; 96374; 99284; J0153; J7030

== ENCOUNTER 2019-08-30 02:21 | Emergency (ER) | payer SELFPAY ==
[~2019-08-30] VITALS: Ht 172.7 cm; Wt 61.2 kg
[2019-08-30] MEDS ORDERED: ADENOSINE 6 MG/2 ML VIAL. IV ONE (02:23)
--- NOTE | 2019-08-30 02:45 | PHYS DOC ---
Past Medical History Past Medical History: CAD Additional Past Medical Histor: svt Past Surgical History: Tonsillectomy Additional Past Surgical Histo: bone removed from foot, lumpectomy Alcohol Use: None Drug Use: None Adult General Chief Complaint Chief Complaint: CHEST PAIN HPI HPI 59-year-old female presents to the emergency department with complaints of SVT. Patient has approximately 11 visits within the last year for SVT. She has underlying history of epilepsy as well. Patient states she was watching a movie around 2 AM noticed palpitations. Heart rate was in the 180s. She separately brought by private vehicle, significant other at her bedside. Patient denies any nausea, vomiting, headache, visual change she does claim some lightheadedness, palpitations. No chest pain. Review of Systems Review of Systems Respiratory: Denies cough or shortness of breath [] Cardiovascular: No additional information not addressed in HPI [] GI: Denies abdominal pain, nausea, vomiting, bloody stools or diarrhea [] Musculoskeletal: Denies back pain or joint pain [] Neurologic: Denies headache, focal weakness or sensory changes [] All other systems were reviewed and found to be within normal limits, except as documented in this note. Current Medications Current Medications Current Medications Medications (Trade) Dose Ordered Sig/Rohith Start Time Stop Time Status Last Admin Dose Admin Adenosine (Adenocard) 6 mg STK-MED ONCE 08/30/19 02:23 08/30/19 02:23 DC Allergies Allergies Allergies Coded Allergies Type Severity Reaction Last Updated Verified No Known Drug Allergies 02/08/14 No Physical Exam Physical Exam Constitutional: Well developed, well nourished, mild distress 2/2 heart rate, non-toxic appearance. [] HENT: Normocephalic, atraumatic, bilateral external ears normal, oropharynx moist, no oral exudates, nose normal. [] Eyes: PERRLA, EOMI, conjunctiva normal, no discharge. [] Cardiovascular: Tachycardia Lungs & Thorax: Bilateral breath sounds clear to auscultation [] Abdomen: Bowel sounds normal, soft, no tenderness, no masses, no pulsatile masses. [] Skin: Warm, dry, no erythema, no rash. [] Extremities: No tenderness, no edema. [] Neurologic: Alert and oriented X 3, no focal deficits noted. [] Psychologic: Affect normal, judgement normal, mood normal. [] Current Patient Data Vital Signs Vital Signs Date Time Temp Pulse Resp B/P (MAP) Pulse Ox O2 Delivery O2 Flow Rate FiO2 08/30/19 02:55 92 15 144/64 (90) 100 Room Air 08/30/19 02:22 97.8 97.8 EKG EKG Initial EKG - SVT, normal axis, HR 168 - 0228 Repeat EKG after 6mg adenosine, HR 108. normal axis, no STEMI, 0234[] Radiology/Procedures Radiology/Procedures [] Course & Med Decision Making Course & Med Decision Making Pertinent Labs and Imaging studies reviewed. (See chart for details) []59-year-old female presents to the emergency department with complaints of SVT. Patient has approximately 11 visits within the last year for SVT. She has underlying history of epilepsy as well. Patient states she was watching a movie around 2 AM noticed palpitations. Heart rate was in the 180s. She separately brought by private vehicle, significant other at her bedside. Patient denies any nausea, vomiting, headache, visual change she does claim some lightheadedness, palpitations. No chest pain. EKG with SVT 6mg Adenosine IV x 1 EKG repeat, sinus tachycardia Discussed dc plans home with follow up as outpatient Dragmono Disclaimer Dragon Disclaimer This electronic medical record was generated, in whole or in part, using a voice recognition dictation system. Departure Departure Impression: Primary Impression: SVT (supraventricular tachycardia) Disposition: 01 HOME, SELF-CARE Condition: IMPROVED Referrals: UNKNOWN PCP NAME (PCP) Patient Instructions: Supraventricular Tachycardia, [id number] Additional Instructions: Recommend follow up with PCP 3 - 5 days Return to the ER with worsening symptoms, intractable pain, fever, altered mental status Tylenol/Motrin as needed for pain Continue diltiazem as prescribed KATHIE MENDIETA MD Aug 30, 2019 02:45
[2019-08-30 03:30] VITALS: BP 113/60
--- NOTE | 2019-08-30 06:53 | EKG ---
[facility] [address] [place] [address] Test Date: 2019-08-30 Test Time: 02:28:30 Pat Name: MURALI ALBA Department: Room: Gender: F Utility Specialist: : 1960 Requested By: KATHIE MENDIETA Order Number: [id number] Reading MD: Measurements Intervals [place] Rate: 168 P: [place]: QRS: 49 QRSD: 84 T: -54 QT: 270 QTc: 458 Interpretive Statements SUPRAVENTRICULAR TACHYCARDIA ST ABNORMALITY, POSSIBLE INFERIOR SUBENDOCARDIAL INJURY ABNORMAL ECG RI6.01 No previous ECG available for comparison
--- NOTE | 2019-08-30 07:42 | EKG ---
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
== END 2019-08-30 03:42 | disposition home or self-care (01) ==
LOC: ER 02:21
DX: I47.1 Supraventricular tachycardia (principal); I25.10 Atherosclerotic heart disease of native coronary artery without angina pectoris
CPT/HCPCS: 93005; 99284-25

== ENCOUNTER 2019-09-05 13:10 | Emergency (ER) | payer SELFPAY ==
[~2019-09-05] VITALS: Ht 172.7 cm; Wt 63.5 kg
--- NOTE | 2019-09-05 13:20 | PHYS DOC ---
Past Medical History Past Medical History: CAD Additional Past Medical Histor: svt Past Surgical History: Tonsillectomy Additional Past Surgical Histo: bone removed from foot, lumpectomy Alcohol Use: None Drug Use: None Adult General Chief Complaint Chief Complaint: RAPID HEART RATE HPI HPI Patient is a 59-year-old female who presents with approximately 20 minute history of palpitations. Patient states that she has a long history of SVT and was just seen here a few days ago for same complaint. Patient states that she usually converts without difficulty with Adenocard but does admit that the Adenocard makes her feel horrible. She denies any chest pain or shortness breath. She states that she just feels weak all over. Patient has requested that no blood work be performed at this time.[] Review of Systems Review of Systems Constitutional: Denies fever or chills [] Respiratory: Denies cough or shortness of breath [] Cardiovascular: No additional information not addressed in HPI [] GI: Denies abdominal pain, nausea, vomiting or diarrhea [] Neurologic: Denies headache, focal weakness or sensory changes [] All other systems were reviewed and found to be within normal limits, except as documented in this note. Current Medications Current Medications Current Medications Medications (Trade) Dose Ordered Sig/Rohith Start Time Stop Time Status Last Admin Dose Admin Adenosine (Adenocard) 6 mg STK-MED ONCE 09/05/19 13:35 09/05/19 13:36 DC Diltiazem HCl (Cardizem Iv Push) 20 mg 1X ONCE 09/05/19 13:15 09/05/19 13:18 DC 09/05/19 13:21 20 MG Sodium Chloride 1,000 ml @ 1,000 mls/hr Q1H 09/05/19 13:15 09/05/19 14:14 09/05/19 13:21 1,000 MLS/HR Allergies Allergies Allergies Coded Allergies Type Severity Reaction Last Updated Verified No Known Drug Allergies 02/08/14 No Physical Exam Physical Exam Constitutional: Well developed, well nourished, no acute distress, non-toxic appearance. [] HENT: Normocephalic, atraumatic, bilateral external ears normal, oropharynx moist, no oral exudates, nose normal. [] Eyes: PERRLA, EOMI, conjunctiva normal, no discharge. [] Neck: Normal range of motion, no tenderness, supple, no stridor. [] Cardiovascular: Markedly tachycardic rate with regular rhythm[] Lungs & Thorax: Bilateral breath sounds clear to auscultation [] Abdomen: Bowel sounds normal, soft, no tenderness. [] Skin: Warm, dry, no erythema, no rash. [] Extremities: No tenderness, no cyanosis, no clubbing, ROM intact, no edema. [] Neurologic: Alert and oriented X 3, no focal deficits noted. [] Current Patient Data Vital Signs Vital Signs Date Time Temp Pulse Resp B/P (MAP) Pulse Ox O2 Delivery O2 Flow Rate FiO2 09/05/19 13:21 190 140/86 09/05/19 13:12 97.7 20 100 Room Air 97.7 EKG EKG EKG demonstrates SVT with a rate of 180.[] Radiology/Procedures Radiology/Procedures [] Course & Med Decision Making Course & Med Decision Making Pertinent Labs and Imaging studies reviewed. (See chart for details) Patient moved to room upon arrival was evaluated by ER medical staff after which an IV was established. Patient requested no blood draw as she has been seen multiple times over the last couple of months with the same complaint and has had normal blood work. Patient initially given a dose of 20 mg of Cardizem IV push over 2 minutes with heart rate that went down as low as 138 but came back to the upper 150s. At this point, we elected to go with the Adenocard 6 mg IV push. Patient did convert to normal sinus rhythm post Adenocard. Patient reevaluated at 1405 p.m. and patient reports complete symptomatic relief. Patient is requesting discharge home at this time. Patient indicates that she has appointment scheduled with her primary provider later this week. Dragon Disclaimer Dragon Disclaimer This electronic medical record was generated, in whole or in part, using a voice recognition dictation system. Departure Departure Impression: Primary Impression: SVT (supraventricular tachycardia) Disposition: 01 HOME, SELF-CARE Condition: STABLE Referrals: UNKNOWN PCP NAME (PCP) Patient Instructions: Supraventricular Tachycardia Additional Instructions: Keep appointment with your primary care provider for later this week. JAYLON SALOMON Jr. DO Sep 05, 2019 13:20
[2019-09-05] MEDS: dilTIAZem IV PUSH 25 MG/5 ML VIAL IVP ONE (13:21)
[2019-09-05] MEDS: IV NORMAL SALINE 1000ML BAG 1,000 ML IV SCH (13:21)
--- NOTE | 2019-09-05 13:25 | EKG ---
[facility] [address] [place] [address] Test Date: 2019-09-05 Test Time: 13:17:01 Pat Name: MURALI ALBA Department: Room: Gender: F Hospice Nurse: : 1960 Requested By: JAYLON SALOMON Order Number: [id number] Reading MD: Measurements Intervals [place] Rate: 180 P: [place]: QRS: 49 QRSD: 78 T: -66 QT: 248 QTc: 435 Interpretive Statements SUPRAVENTRICULAR TACHYCARDIA LVH WITH REPOLARIZATION ABNORMALITY ABNORMAL ECG No previous ECG available for comparison
[2019-09-05] MEDS ORDERED: ADENOSINE 6 MG/2 ML VIAL. IV ONE (13:35)
[2019-09-05] MEDS: ADENOSINE 6 MG/2 ML VIAL. IV ONE (13:44)
[2019-09-05 14:14] VITALS: BP 123/67
--- NOTE | 2019-09-05 15:08 | EKG ---
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
== END 2019-09-05 14:17 | disposition home or self-care (01) ==
LOC: ER 13:10
DX: I47.1 Supraventricular tachycardia (principal); I25.10 Atherosclerotic heart disease of native coronary artery without angina pectoris; Z90.89 Acquired absence of other organs; Z98.890 Other specified postprocedural states
CPT/HCPCS: 93005; 96374; 96375; 99284; J0153; J3490; J7030

== ENCOUNTER 2019-09-06 12:35 | Emergency (ER) | payer SELFPAY ==
[~2019-09-06] VITALS: Ht 172.7 cm; Wt 63.5 kg
[2019-09-06] MEDS ORDERED: ADENOSINE 6 MG/2 ML VIAL. IV ONE (12:45)
[2019-09-06] MEDS ORDERED: IV NORMAL SALINE 1000ML BAG 1,000 ML IV SCH (12:46)
[2019-09-06 13:01] LABS: BASO # 0.1 x10^3/uL (0.0-0.2); BASO % 1 % (0-3); EOS # 0.1 x10^3/uL (0.0-0.7); EOS % 1 % (0-3); HEMATOCRIT 44.8 % (36.0-47.0); HEMOGLOBIN 14.9 g/dL (12.0-15.5); LYMPH # 2.9 x10^3/uL (1.0-4.8); LYMPH % 28 % (24-48); MEAN CORPUSCULAR HEMOGLOBIN 29 pg (25-35); MEAN CORPUSCULAR HGB CONC 33 g/dL (31-37); MEAN CORPUSCULAR VOLUME 86 fL (79-100); MONO # 0.5 x10^3/uL (0.0-1.1); MONO % 5 % (0-9); NEUT # 6.8 x10^3/uL (1.8-7.7); NEUT % 65 % (31-73); PLATELET COUNT 231 x10^3/uL (140-400); RED BLOOD COUNT 5.21 x10^6/uL (3.50-5.40); RED CELL DISTRIBUTION WIDTH 14.8 % (11.5-14.5); WHITE BLOOD COUNT 10.4 x10^3/uL (4.0-11.0)
--- NOTE | 2019-09-06 13:20 | EKG ---
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
--- NOTE | 2019-09-06 13:21 | EKG ---
[facility] [address] [place] [address] Test Date: 2019-09-06 Test Time: 12:52:26 Pat Name: MURALI ALBA Department: Room: Gender: F Intensive Care Specialist: : 1960 Requested By: JAYLON SALOMON Order Number: [id number] Reading MD: Measurements Intervals [place] Rate: 184 P: [place]: QRS: 62 QRSD: 80 T: -109 QT: 262 QTc: 459 Interpretive Statements SUPRAVENTRICULAR TACHYCARDIA LVH WITH REPOLARIZATION ABNORMALITY ABNORMAL ECG No previous ECG available for comparison
--- NOTE | 2019-09-06 13:22 | EKG ---
[facility] [address] [place] [address] Test Date: 2019-09-06 Test Time: 12:53:57 Pat Name: MURALI ALBA Department: Room: Gender: F Data Management Specialist: : 1960 Requested By: JAYLON SALOMON Order Number: [id number] Reading MD: Measurements Intervals [place] Rate: 110 P: 59 VT: 160 QRS: 72 QRSD: 86 T: 53 QT: 314 QTc: 430 Interpretive Statements SINUS TACHYCARDIA LEFT ATRIAL ABNORMALITY NON SPECIFIC ST DEPRESSION ABNORMAL ECG No previous ECG available for comparison
[2019-09-06 13:34] LABS: CALCIUM 9.1 mg/dL (8.5-10.1); CREATININE 1.1 mg/dL (0.6-1.0); GFR 51.2
--- NOTE | 2019-09-06 13:40 | PHYS DOC ---
Past Medical History Past Medical History: CAD Additional Past Medical Histor: svt Past Surgical History: Tonsillectomy Additional Past Surgical Histo: bone removed from foot, lumpectomy Alcohol Use: None Drug Use: None Adult General Chief Complaint Chief Complaint: RAPID HEART RATE HPI HPI Patient is a 59-year-old female who presents with report that she is in SVT again. Patient was just seen here yesterday for same complaint and was converted and discharged home. Patient denies any chest pain. She states symptoms started approximately 10 minutes prior to her arrival to the emergency room. She denies any shortness of breath.[] Review of Systems Review of Systems Constitutional: Denies fever or chills [] Respiratory: Denies cough or shortness of breath [] Cardiovascular: No additional information not addressed in HPI [] Integument: Denies rash or skin lesions [] Neurologic: Denies headache, focal weakness or sensory changes [] All other systems were reviewed and found to be within normal limits, except as documented in this note. Current Medications Current Medications Current Medications Medications (Trade) Dose Ordered Sig/Rohith Start Time Stop Time Status Last Admin Dose Admin Adenosine (Adenocard) 6 mg 1X ONCE 09/06/19 12:45 09/06/19 12:46 DC 09/06/19 12:55 6 MG Lorazepam (Ativan Inj) 1 mg 1X ONCE 09/06/19 13:00 09/06/19 13:01 DC Sodium Chloride 1,000 ml @ 1,000 mls/hr Q1H 09/06/19 12:46 09/06/19 13:45 09/06/19 12:56 1,000 MLS/HR Allergies Allergies Allergies Coded Allergies Type Severity Reaction Last Updated Verified No Known Drug Allergies 02/08/14 No Physical Exam Physical Exam Constitutional: Well developed, well nourished, no acute distress, non-toxic appearance. [] HENT: Normocephalic, atraumatic, bilateral external ears normal, oropharynx moist, no oral exudates, nose normal. [] Eyes: PERRLA, EOMI, conjunctiva normal, no discharge. [] Neck: Normal range of motion, no tenderness, supple, no stridor. [] Cardiovascular: Markedly tachycardic rate with regular rhythm[] Lungs & Thorax: Bilateral breath sounds clear to auscultation [] Abdomen: Bowel sounds normal, soft, no tenderness. [] Skin: Warm, dry, no erythema, no rash. [] Extremities: No tenderness, no cyanosis, no clubbing, ROM intact, no edema. [] Neurologic: Alert and oriented X 3, no focal deficits noted. [] Current Patient Data Vital Signs Vital Signs Date Time Temp Pulse Resp B/P (MAP) Pulse Ox O2 Delivery O2 Flow Rate FiO2 09/06/19 12:40 89.4 192 18 163/83 (109) 99 Room Air 89.4 Lab Values Laboratory Tests Test 09/06/19 12:50 White Blood Count 10.4 x10^3/uL (4.0-11.0) Red Blood Count 5.21 x10^6/uL (3.50-5.40) Hemoglobin 14.9 g/dL (12.0-15.5) Hematocrit 44.8 % (36.0-47.0) Mean Corpuscular Volume 86 fL (79-100) Mean Corpuscular Hemoglobin 29 pg (25-35) Mean Corpuscular Hemoglobin Concent 33 g/dL (31-37) Red Cell Distribution Width 14.8 % (11.5-14.5) H Platelet Count 231 x10^3/uL (140-400) Neutrophils (%) (Auto) 65 % (31-73) Lymphocytes (%) (Auto) 28 % (24-48) Monocytes (%) (Auto) 5 % (0-9) Eosinophils (%) (Auto) 1 % (0-3) Basophils (%) (Auto) 1 % (0-3) Neutrophils # (Auto) 6.8 x10^3/uL (1.8-7.7) Lymphocytes # (Auto) 2.9 x10^3/uL (1.0-4.8) Monocytes # (Auto) 0.5 x10^3/uL (0.0-1.1) Eosinophils # (Auto) 0.1 x10^3/uL (0.0-0.7) Basophils # (Auto) 0.1 x10^3/uL (0.0-0.2) Laboratory Tests 09/06/19 12:50 EKG EKG [] Interpretation Time: EKG demonstrates SVT with a rate of 185. Repeat EKG post adenosine demonstrates sinus tachycardia with rate of 110. Radiology/Procedures Radiology/Procedures [] Course & Med Decision Making Course & Med Decision Making Pertinent Labs and Imaging studies reviewed. (See chart for details) Patient moved to room upon arrival was evaluated by ER medical staff after which an IV was established and blood work was drawn. Patient was given one dose of adenosine at 6 mg IV push. Patient converted to a sinus rhythm. I did discuss admission to the hospital with patient which I strongly encouraged due to recurrent SVT in such a short period of time; however, patient is refusing admission and is leaving AGAINST MEDICAL ADVICE. Dragon Disclaimer Dragon Disclaimer This electronic medical record was generated, in whole or in part, using a voice recognition dictation system. Departure Departure Impression: Primary Impression: SVT (supraventricular tachycardia) Disposition: 07 AGAINST MEDICAL ADVICE Condition: IMPROVED Referrals: UNKNOWN PCP NAME (PCP) JAYLON SALOMON Jr. DO Sep 06, 2019 13:40
[2019-09-06 13:47] LABS: ALBUMIN 4.1 g/dL (3.4-5.0); ALBUMIN/GLOBULIN RATIO 1.1 (1.0-1.7); TOTAL BILIRUBIN 0.6 mg/dL (0.2-1.0); TOTAL PROTEIN 7.7 g/dL (6.4-8.2)
[2019-09-06 14:46] VITALS: BP 129/69
== END 2019-09-06 14:51 | disposition left against medical advice (07) ==
LOC: ER 12:35
DX: I47.1 Supraventricular tachycardia (principal); I25.10 Atherosclerotic heart disease of native coronary artery without angina pectoris; Z90.89 Acquired absence of other organs; Z98.890 Other specified postprocedural states
CPT/HCPCS: 36415; 80053; 83735; 84443; 84484; 85025; 93005; 96374; 99285; J0153; J7030

== ENCOUNTER 2019-09-19 13:14 | Emergency (ER) | payer SELFPAY ==
[~2019-09-19] VITALS: Ht 172.7 cm; Wt 63.5 kg
--- NOTE | 2019-09-19 13:50 | RAD ---
EXAM: CHEST 1 VIEW History: Supraventricular tachycardia COMPARISON: 04/22/2019 TECHNIQUE: Single portable radiograph of the chest FINDINGS: The cardiac silhouette is unremarkable. The lungs are clear bilaterally. The costophrenic sulci are clear and well demarcated. IMPRESSION: No radiographic evidence of an acute cardiopulmonary process. Electronically signed by: Jim Puckett MD (09/19/2019 1:48 PM) [facility] [place]
[2019-09-19] MEDS ORDERED: ADENOSINE 6 MG/2 ML VIAL. IV ONE (14:00)
--- NOTE | 2019-09-19 14:00 | PHYS DOC ---
Past Medical History Past Medical History: CAD Additional Past Medical Histor: svt Past Surgical History: Tonsillectomy Additional Past Surgical Histo: bone removed from foot, lumpectomy Alcohol Use: None Drug Use: None Adult General Chief Complaint Chief Complaint: RAPID HEART RATE HPI HPI Patient is a 59 year old female patient with history of coronary artery disease and frequent SVT who presents with present of SVT. Patient complaining of sudden onset of palpitation and dizziness few minutes prior to arrival to ER like her previous episodes of SVT without chest pain, shortness of breath, nausea and vomiting, missing her medication. Review of Systems Review of Systems Constitutional: Denies fever or chills [] Eyes: Denies change in visual acuity, redness, or eye pain [] HENT: Denies nasal congestion or sore throat [] Respiratory: Denies cough or shortness of breath [] Cardiovascular: No additional information not addressed in HPI [] GI: Denies abdominal pain, nausea, vomiting, bloody stools or diarrhea [] : Denies dysuria or hematuria [] Musculoskeletal: Denies back pain or joint pain [] Integument: Denies rash or skin lesions [] Neurologic: Denies headache, focal weakness or sensory changes [] Endocrine: Denies polyuria or polydipsia [] All other systems were reviewed and found to be within normal limits, except as documented in this note. Current Medications Current Medications Current Medications Medications (Trade) Dose Ordered Sig/Rohith Start Time Stop Time Status Last Admin Dose Admin Adenosine (Adenocard) 12 mg 1X ONCE 09/19/19 14:00 09/19/19 14:01 DC 09/19/19 13:33 6 MG Allergies Allergies Allergies Coded Allergies Type Severity Reaction Last Updated Verified No Known Drug Allergies 02/08/14 No Physical Exam Physical Exam Constitutional: Well developed, well nourished, mild distress, non-toxic appearance. [] HENT: Normocephalic, atraumatic. Eyes: PERRLA, EOMI, conjunctiva normal, no discharge. [] Neck: Normal range of motion, no tenderness, supple, no stridor. [] Cardiovascular: Tachycardia with regular rhythm, no murmur [] Lungs & Thorax: Bilateral breath sounds clear to auscultation [] Abdomen: Bowel sounds normal, soft, no tenderness, no masses, no pulsatile masses. [] Skin: Warm, dry, no erythema, no rash. [] Back: No tenderness, no CVA tenderness. [] Extremities: No tenderness, no cyanosis, no clubbing, ROM intact, no edema. [] Neurologic: Alert and oriented X 3, no focal deficits noted. [] Psychologic: Affect normal, judgement normal, mood normal. [] Current Patient Data Vital Signs Vital Signs Date Time Temp Pulse Resp B/P (MAP) Pulse Ox O2 Delivery O2 Flow Rate FiO2 09/19/19 13:18 98.3 156 16 134/91 (105) 98 Room Air 98.3 EKG EKG EKG interpreted by me. EKG at 1322 showed SVT at the time of 156, no acute ST and T-wave elevation. Repeat EKG after adenosine at 1336 showed sinus tachycardia at rate of 110, T- wave abnormalities in inferior leads, no acute ST and T-wave elevation. Radiology/Procedures Radiology/Procedures [] Course & Med Decision Making Course & Med Decision Making Pertinent Imaging studies reviewed. (See chart for details) Evaluation of patient in ER showed 59-year-old female patient with frequent episodes of SVT presented with another episode of SVT with heart rate of 156. Patient treated with antinausea 6 mg of taking 33 and heart rate dropped to 80s with sinus rhythm. Patient refuses blood test and stated she never had abnormal blood test. Patient was to go home. Patient has appointment with her physician in few days. Dragon Disclaimer Dragon Disclaimer This electronic medical record was generated, in whole or in part, using a voice recognition dictation system. Departure Departure Impression: Primary Impression: SVT (supraventricular tachycardia) Disposition: HOME, SELF-CARE (at 1400) Condition: IMPROVED Referrals: UNKNOWN PCP NAME (PCP) Patient Instructions: Supraventricular Tachycardia Additional Instructions: Drink plenty of liquids Follow-up with your physician as scheduled Return to ER if not getting better Continue current home medication Thank you for visiting [facility]. We appreciate you trusting us with your care. If any additional problems come up don't hesitate to return to visit us. Please follow up with your primary care provider so they can plan additional care if needed and know about the problem that you had. If symptoms worsen come back to the Emergency Department. Any concerning symptoms that start such as chest pain, shortness of air, weakness or numbness on one side of the body, running high fevers or any other concerning symptoms return to the ER. JIMI JOHNSON MD Sep 19, 2019 14:00
[2019-09-19 14:04] VITALS: BP 113/67
--- NOTE | 2019-09-19 16:22 | EKG ---
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
--- NOTE | 2019-09-19 16:22 | EKG ---
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
== END 2019-09-19 14:19 | disposition home or self-care (01) ==
LOC: ER 13:14
DX: I47.1 Supraventricular tachycardia (principal); R42 Dizziness and giddiness; I25.10 Atherosclerotic heart disease of native coronary artery without angina pectoris; Z90.89 Acquired absence of other organs; Z98.890 Other specified postprocedural states
CPT/HCPCS: 71045; 93005; 96374; 99284; J0153

== ENCOUNTER 2019-09-28 12:49 | Emergency (ER) | payer SELFPAY ==
[~2019-09-28] VITALS: Ht 172.7 cm; Wt 61.2 kg
[2019-09-28] MEDS ORDERED: ASPIRIN 325 MG TABLET PO ONE (13:00)
[2019-09-28] MEDS ORDERED: ADENOSINE 6 MG/2 ML VIAL. IV ONE ×2 (13:00→13:02)
--- NOTE | 2019-09-28 13:11 | EKG ---
[facility] [address] [place] [address] Test Date: 2019-09-28 Test Time: 12:56:40 Pat Name: MURALI ALBA Department: Room: Gender: F Clinical Allergist: : 1960 Requested By: SHANNON RAYA Order Number: [id number] Reading MD: Measurements Intervals [place] Rate: 175 P: PA: QRS: 39 QRSD: 80 T: 34 QT: 272 QTc: 469 Interpretive Statements SUPRAVENTRICULAR TACHYCARDIA ST ABNORMALITY, POSSIBLE INFERIOR SUBENDOCARDIAL INJURY ABNORMAL ECG RI6.01 No previous ECG available for comparison
[2019-09-28] MEDS ORDERED: IV NORMAL SALINE 1000ML BAG 1,000 ML IV ONE (13:15)
--- NOTE | 2019-09-28 13:18 | PHYS DOC ---
Past Medical History Past Medical History: Arrhythmia, CAD Additional Past Medical Histor: svt Past Surgical History: Tonsillectomy Additional Past Surgical Histo: bone removed from foot, lumpectomy Alcohol Use: None Drug Use: None Adult General Chief Complaint Chief Complaint: RAPID HEART RATE HPI HPI Patient is a 59-year-old female with past medical history of heart arrhythmia who presents today with a rapid heart rate. The patient states that she began feeling palpitations last night after staying up too late watching a movie. She denies any chest pain, abdominal pain, nausea, or vomiting. She reports shortness of breath and diaphoresis at this time. She admits this problem has occurred several times in the past and is requesting adenosine, which usually fixes the problem. She is on a waiting list to receive an ablation but has been unable to get the procedure due to lack of insurance. She has no other complaints at this time. Review of Systems Review of Systems Constitutional: Denies fever or chills Eyes: Denies redness or eye pain HENT: Denies nasal congestion or sore throat Respiratory: Denies cough. Reports shortness of breath Cardiovascular: Denies chest pain. Reports palpitations. GI: Denies abdominal pain, nausea, or vomiting : Denies dysuria or hematuria Musculoskeletal: Denies back pain or joint pain Integument: Denies rash or skin lesions Neurologic: Denies headache, focal weakness or sensory changes Complete systems were reviewed and found to be within normal limits, except as documented in this note. Current Medications Current Medications Current Medications Medications (Trade) Dose Ordered Sig/Rohith Start Time Stop Time Status Last Admin Dose Admin Adenosine (Adenocard) 6 mg STK-MED ONCE 09/28/19 13:02 09/28/19 13:02 DC Aspirin (Yovani Aspirin) 325 mg 1X ONCE 09/28/19 13:00 09/28/19 13:13 DC Sodium Chloride 1,000 ml @ 1,000 mls/hr 1X ONCE 09/28/19 13:15 09/28/19 14:14 DC 09/28/19 13:18 1,000 MLS/HR Allergies Allergies Allergies Coded Allergies Type Severity Reaction Last Updated Verified No Known Drug Allergies 02/08/14 No Physical Exam Physical Exam Constitutional: Diaphoretic 59 yo female in moderate distress. HENT: Normocephalic, atraumatic, oropharynx moist Eyes: conjunctiva normal, no discharge Cardiovascular: Tachycardia, regular rhythm Lungs & Thorax: Bilateral breath sounds clear to auscultation, no wheezing Skin: Warm, dry, no erythema, no rash Neurologic: Alert and oriented X 3, normal motor function, normal sensory function, no focal deficits noted Psychologic: Affect normal, judgement normal, mood normal Current Patient Data Vital Signs Vital Signs Date Time Temp Pulse Resp B/P (MAP) Pulse Ox O2 Delivery O2 Flow Rate FiO2 09/28/19 13:15 97.5 170 14 101/67 (78) 100 Room Air 97.5 Lab Values Laboratory Tests Test 09/28/19 13:15 White Blood Count 8.2 x10^3/uL (4.0-11.0) Red Blood Count 5.30 x10^6/uL (3.50-5.40) Hemoglobin 15.1 g/dL (12.0-15.5) Hematocrit 44.9 % (36.0-47.0) Mean Corpuscular Volume 85 fL (79-100) Mean Corpuscular Hemoglobin 29 pg (25-35) Mean Corpuscular Hemoglobin Concent 34 g/dL (31-37) Red Cell Distribution Width 14.1 % (11.5-14.5) Platelet Count 240 x10^3/uL (140-400) Neutrophils (%) (Auto) 53 % (31-73) Lymphocytes (%) (Auto) 38 % (24-48) Monocytes (%) (Auto) 8 % (0-9) Eosinophils (%) (Auto) 1 % (0-3) Basophils (%) (Auto) 1 % (0-3) Neutrophils # (Auto) 4.3 x10^3/uL (1.8-7.7) Lymphocytes # (Auto) 3.1 x10^3/uL (1.0-4.8) Monocytes # (Auto) 0.6 x10^3/uL (0.0-1.1) Eosinophils # (Auto) 0.1 x10^3/uL (0.0-0.7) Basophils # (Auto) 0.1 x10^3/uL (0.0-0.2) Prothrombin Time 12.5 SEC (11.7-14.0) Prothrombin Time INR 1.0 (0.8-1.1) Activated Partial Thromboplast Time 25 SEC (24-38) Sodium Level 141 mmol/L (136-145) Potassium Level 3.7 mmol/L (3.5-5.1) Chloride Level 104 mmol/L (98-107) Carbon Dioxide Level 24 mmol/L (21-32) Anion Gap 13 (6-14) Blood Urea Nitrogen 15 mg/dL (7-20) Creatinine 1.0 mg/dL (0.6-1.0) Estimated GFR (Cockcroft-Gault) 57.1 BUN/Creatinine Ratio 15 (6-20) Glucose Level 113 mg/dL (70-99) H Calcium Level 9.1 mg/dL (8.5-10.1) Magnesium Level 2.0 mg/dL (1.8-2.4) Total Bilirubin 0.7 mg/dL (0.2-1.0) Aspartate Amino Transferase (AST) 18 U/L (15-37) Alanine Aminotransferase (ALT) 12 U/L (14-59) L Alkaline Phosphatase 115 U/L (46-116) Creatine Kinase 53 U/L (26-192) Creatine Kinase MB (Mass) ng/mL (0.0-3.6) Creatine Kinase MB Relative Index 0.9 % (0-4) Troponin I Quantitative < 0.017 ng/mL (0.000-0.055) KD-Nnc-N-Type Natriuretic Peptide 41 pg/mL (0-124) Total Protein 7.4 g/dL (6.4-8.2) Albumin 3.9 g/dL (3.4-5.0) Albumin/Globulin Ratio 1.1 (1.0-1.7) Lipase 155 U/L (73-393) Laboratory Tests 09/28/19 13:15 Laboratory Tests 09/28/19 13:15 EKG EKG 09/28/2019 @12:56 shows Supraventricular Tachycardia at 175bpm. 09/28/2019 @13:20 shows Normal Sinus Rhythm at 94bpm. No ST elevations. [] Radiology/Procedures Radiology/Procedures [] Course & Med Decision Making Course & Med Decision Making Patient is a 59-year-old female with past medical history of heart arrhythmia who presents today with tachycardia. She states this began last night after she noticed palpitations. She is diaphoretic and short of breath and agitated upon arrival in the emergency department. She is requesting adenosine, which usually fixes this problem for her. She has been to the hospital for this problem several times in the recent past. Was present for administration of 6mg of adenosine, which successfully converted her back to normal sinus rhythm. IV fluids and Aspirin were also administered. Routine labs were drawn and showed... Dragon Disclaimer Dragon Disclaimer This electronic medical record was generated, in whole or in part, using a voice recognition dictation system. Departure Departure Impression: Primary Impression: SVT (supraventricular tachycardia) Disposition: 01 HOME, SELF-CARE Condition: STABLE Referrals: UNKNOWN PCP NAME (PCP) EYAD INMAN MD Patient Instructions: Supraventricular Tachycardia, [id number] SHANNON RAYA DO Sep 28, 2019 13:18
[2019-09-28 13:28] LABS: BASO # 0.1 x10^3/uL (0.0-0.2); BASO % 1 % (0-3); EOS # 0.1 x10^3/uL (0.0-0.7); EOS % 1 % (0-3); HEMATOCRIT 44.9 % (36.0-47.0); HEMOGLOBIN 15.1 g/dL (12.0-15.5); LYMPH # 3.1 x10^3/uL (1.0-4.8); LYMPH % 38 % (24-48); MEAN CORPUSCULAR HEMOGLOBIN 29 pg (25-35); MEAN CORPUSCULAR HGB CONC 34 g/dL (31-37); MEAN CORPUSCULAR VOLUME 85 fL (79-100); MONO # 0.6 x10^3/uL (0.0-1.1); MONO % 8 % (0-9); NEUT # 4.3 x10^3/uL (1.8-7.7); NEUT % 53 % (31-73); PLATELET COUNT 240 x10^3/uL (140-400); RED CELL DISTRIBUTION WIDTH 14.1 % (11.5-14.5); WHITE BLOOD COUNT 8.2 x10^3/uL (4.0-11.0)
[2019-09-28 13:36] LABS: PROTHROMBIN TIME PATIENT 12.5 SEC (11.7-14.0)
[2019-09-28 13:39] LABS: CALCIUM 9.1 mg/dL (8.5-10.1); GFR 57.1; POTASSIUM 3.7 mmol/L (3.5-5.1)
[2019-09-28 13:45] LABS: ALBUMIN 3.9 g/dL (3.4-5.0); ALBUMIN/GLOBULIN RATIO 1.1 (1.0-1.7); TOTAL BILIRUBIN 0.7 mg/dL (0.2-1.0); TOTAL PROTEIN 7.4 g/dL (6.4-8.2)
[2019-09-28 14:10] LABS: CREATINE KINASE 53 U/L (26-192)
[2019-09-28 14:25] VITALS: BP 155/82
--- NOTE | 2019-10-01 07:44 | EKG ---
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
== END 2019-09-28 14:59 | disposition home or self-care (01) ==
LOC: ER 12:49
DX: I47.1 Supraventricular tachycardia (principal); R06.02 Shortness of breath; R61 Generalized hyperhidrosis; I25.10 Atherosclerotic heart disease of native coronary artery without angina pectoris; Z90.89 Acquired absence of other organs; Z98.890 Other specified postprocedural states
CPT/HCPCS: 36415; 80053; 82553; 83690; 83735; 83880; 84484; 85025; 85610; 85730; 93005; 96374; 99285; J0153; J7030

== ENCOUNTER 2019-10-18 14:10 | Emergency (ER) | payer SELFPAY ==
[~2019-10-18] VITALS: Ht 162.6 cm; Wt 68.0 kg
[2019-10-18] MEDS ORDERED: ADENOSINE 6 MG/2 ML VIAL. IV ONE (14:17)
[2019-10-18] MEDS: ADENOSINE 6 MG/2 ML VIAL. IV ONE (14:39)
[2019-10-18 14:46] LABS: BASO # 0.1 x10^3/uL (0.0-0.2); BASO % 1 % (0-3); EOS # 0.1 x10^3/uL (0.0-0.7); EOS % 2 % (0-3); LYMPH # 3.6 x10^3/uL (1.0-4.8); LYMPH % 43 % (24-48); MEAN CORPUSCULAR HEMOGLOBIN 28 pg (25-35); MEAN CORPUSCULAR HGB CONC 33 g/dL (31-37); MEAN CORPUSCULAR VOLUME 85 fL (79-100); MONO # 0.7 x10^3/uL (0.0-1.1); MONO % 9 % (0-9); NEUT # 3.8 x10^3/uL (1.8-7.7); NEUT % 45 % (31-73); PLATELET COUNT 228 x10^3/uL (140-400); RED BLOOD COUNT 4.95 x10^6/uL (3.50-5.40); RED CELL DISTRIBUTION WIDTH 14.6 % (11.5-14.5); WHITE BLOOD COUNT 8.3 x10^3/uL (4.0-11.0)
[2019-10-18 14:58] LABS: CALCIUM 8.7 mg/dL (8.5-10.1); GFR 57.1; POTASSIUM 4.2 mmol/L (3.5-5.1)
--- NOTE | 2019-10-18 15:25 | RAD ---
CHEST AP ONLY Clinical Indication: Chest pain Comparison: 09/19/2019 Portable Chest X-ray Exam. Findings: Portable upright film view chest was obtained. The cardiomediastinal silhouette is normal. Lungs are clear. There is no pneumothorax. No pleural effusion is appreciated. No acute bone abnormality. Left glenohumeral joint degenerative changes are present. IMPRESSION: No acute cardiopulmonary process. Electronically signed by: Yeison Torres MD (10/18/2019 3:22 PM) [facility]
--- NOTE | 2019-10-18 15:49 | PHYS DOC ---
Past Medical History Past Medical History: Arrhythmia, CAD Additional Past Medical Histor: svt Past Surgical History: Tonsillectomy Additional Past Surgical Histo: bone removed from foot, lumpectomy Alcohol Use: None Drug Use: None Adult General Chief Complaint Chief Complaint: RAPID HEART RATE HPI HPI Patient is a 59 year old female with history of cardiac arrhythmia who presents with SVT. Symptoms began 2 hours prior to ED arrival. Patient is attempted usual techniques to get heart rate under control. Reports chest tightness anxiety and mild dyspnea. No dizziness, vomiting, flank pain. Leg pain or swelling. No other acute symptoms or complaints. Patient has Street of PSVT with reported occurrences in the ER visits for the same in the past several months. Denies pr ecipitating event or causes. [] Review of Systems Review of Systems Review symptoms as per history of present illness. All other review symptoms are negative. All other systems were reviewed and found to be within normal limits, except as documented in this note. Current Medications Current Medications Current Medications Medications (Trade) Dose Ordered Sig/Rohith Start Time Stop Time Status Last Admin Dose Admin Adenosine (Adenocard) 6 mg 1X ONCE 10/18/19 14:30 10/18/19 14:31 DC 10/18/19 14:39 6 MG Allergies Allergies Allergies Coded Allergies Type Severity Reaction Last Updated Verified No Known Drug Allergies 02/08/14 No Physical Exam Physical Exam Constitutional: Well developed, well nourished, no acute distress, non-toxic appearance. [] HENT: Normocephalic, atraumatic, bilateral external ears normal, nose normal. [] Eyes: PERRLA, EOMI, conjunctiva normal. [] Neck: Normal range of motion, no tenderness, supple. [] Cardiovascular:Heart rate regular rhythm, no murmur. [] Lungs & Thorax: Bilateral breath sounds clear to auscultation [] Abdomen: Bowel sounds normal, soft, no tenderness. [] Skin: Warm, dry, no erythema. [] Back: No tenderness. [] Extremities: No tenderness, no edema. [] Neurologic: Alert and oriented X 3, normal motor function, normal sensory function, no focal deficits noted. [] Psychologic: Affect normal, judgement normal, mood normal. [] Current Patient Data Vital Signs Vital Signs Date Time Temp Pulse Resp B/P (MAP) Pulse Ox O2 Delivery O2 Flow Rate FiO2 10/18/19 14:39 97.5 165 26 153/79 (103) 99 Nasal Cannula 1.0 97.5 Lab Values Laboratory Tests Test 10/18/19 14:20 White Blood Count 8.3 x10^3/uL (4.0-11.0) Red Blood Count 4.95 x10^6/uL (3.50-5.40) Hemoglobin 14.0 g/dL (12.0-15.5) Hematocrit 42.0 % (36.0-47.0) Mean Corpuscular Volume 85 fL (79-100) Mean Corpuscular Hemoglobin 28 pg (25-35) Mean Corpuscular Hemoglobin Concent 33 g/dL (31-37) Red Cell Distribution Width 14.6 % (11.5-14.5) H Platelet Count 228 x10^3/uL (140-400) Neutrophils (%) (Auto) 45 % (31-73) Lymphocytes (%) (Auto) 43 % (24-48) Monocytes (%) (Auto) 9 % (0-9) Eosinophils (%) (Auto) 2 % (0-3) Basophils (%) (Auto) 1 % (0-3) Neutrophils # (Auto) 3.8 x10^3/uL (1.8-7.7) Lymphocytes # (Auto) 3.6 x10^3/uL (1.0-4.8) Monocytes # (Auto) 0.7 x10^3/uL (0.0-1.1) Eosinophils # (Auto) 0.1 x10^3/uL (0.0-0.7) Basophils # (Auto) 0.1 x10^3/uL (0.0-0.2) Sodium Level 142 mmol/L (136-145) Potassium Level 4.2 mmol/L (3.5-5.1) Chloride Level 106 mmol/L (98-107) Carbon Dioxide Level 26 mmol/L (21-32) Anion Gap 10 (6-14) Blood Urea Nitrogen 13 mg/dL (7-20) Creatinine 1.0 mg/dL (0.6-1.0) Estimated GFR (Cockcroft-Gault) 57.1 Glucose Level 181 mg/dL (70-99) H Calcium Level 8.7 mg/dL (8.5-10.1) Troponin I Quantitative < 0.017 ng/mL (0.000-0.055) Laboratory Tests 10/18/19 14:20 Laboratory Tests 10/18/19 14:20 EKG EKG [EKG: SVT, rate 167, rate related ST depression. ] Radiology/Procedures Radiology/Procedures [CXR: No acute cardiopulmonary disease.] Course & Med Decision Making Course & Med Decision Making Pertinent Labs and Imaging studies reviewed. (See chart for details) [Patient successfully cardioverted with 6 mg of adenosine 1. Patient monitored and remains in normal sinus rhythm. Basic labs obtained and unremarkable. Patient discharged home in stable condition with instructions beta neo calcium channel blockers and to follow-up with cardiology. Return precautions reviewed. Patient verbalizes understanding and agreement with discharge instructions prior to departure.] Dragon Disclaimer Dragon Disclaimer This electronic medical record was generated, in whole or in part, using a voice recognition dictation system. Departure Departure Impression: Primary Impression: SVT (supraventricular tachycardia) Disposition: ADMITTED INPATIENT Condition: STABLE Referrals: UNKNOWN PCP NAME (PCP) Patient Instructions: Supraventricular Tachycardia, [id number] Additional Instructions: Please continue home medications and follow up with your radio installer as sche duled. Return to the ED if new or concerning symptoms. REGGIE FOOTE DO Oct 18, 2019 15:49
[2019-10-18 15:55] VITALS: BP 119/75
--- NOTE | 2019-10-18 16:19 | EKG ---
[facility] [address] [place] [address] Test Date: 2019-10-18 Test Time: 14:15:44 Pat Name: MURALI ALBA Department: Room: Gender: F Negotiator: : 1960 Requested By: REGGIE FOOTE Order Number: [id number] Reading MD: Measurements Intervals [place] Rate: 167 P: [place]: QRS: 48 QRSD: 84 T: -96 QT: 272 QTc: 453 Interpretive Statements SUPRAVENTRICULAR TACHYCARDIA QRS(T) CONTOUR ABNORMALITY CONSIDER ANTEROSEPTAL MYOCARDIAL DAMAGE ST & T ABNORMALITY, CONSIDER LATERAL ISCHEMIA OR LEFT VENTRICULAR STRAIN INFEROLATERAL ISCHEMIA OR LEFT VENTRICULAR STRAIN ABNORMAL ECG RI6.01 No previous ECG available for comparison
== END 2019-10-18 16:11 | disposition other institution (70) ==
LOC: ER 14:10
DX: I47.1 Supraventricular tachycardia (principal); R07.89 Other chest pain; R06.00 Dyspnea, unspecified; I25.10 Atherosclerotic heart disease of native coronary artery without angina pectoris; Z90.89 Acquired absence of other organs; Z98.890 Other specified postprocedural states
CPT/HCPCS: 36415; 71045; 80048; 84484; 85025; 93005; 96374; 99285; J0153

== ENCOUNTER 2019-10-20 12:15 | Emergency (ER) | payer SELFPAY ==
[~2019-10-20] VITALS: Ht 172.7 cm; Wt 65.9 kg
[2019-10-20] MEDS ORDERED: ADENOSINE 6 MG/2 ML VIAL. IV ONE (12:30)
--- NOTE | 2019-10-20 12:35 | PHYS DOC ---
Past Medical History Past Medical History: Arrhythmia, CAD Additional Past Medical Histor: svt Past Surgical History: Tonsillectomy Additional Past Surgical Histo: bone removed from foot, lumpectomy Alcohol Use: None Drug Use: None Adult General Chief Complaint Chief Complaint: RAPID HEART RATE HPI HPI Patient is a 59 year old female with history of SVT and coronary artery disease who presents with complaint of SVT. Patient states she woke up from a bad dream with palpitation and mild shortness of breath like her previous episodes of SVT prior to arrival to ER. Patient states she was in this hospital 2 days ago with the same problem. Patient denies chest pain, focal neuro deficit, fever and chills, nausea and vomiting, dehydration. Patient states she always has normal labs during episodes of SVT and doesn't want to have any blood test or x-ray of her chest. Review of Systems Review of Systems Constitutional: Denies fever or chills [] Eyes: Denies change in visual acuity, redness, or eye pain [] HENT: Denies nasal congestion or sore throat [] Respiratory: Denies cough, reports shortness of breath [] Cardiovascular: No additional information not addressed in HPI [] GI: Denies abdominal pain, nausea, vomiting, bloody stools or diarrhea [] : Denies dysuria or hematuria [] Musculoskeletal: Denies back pain or joint pain [] Integument: Denies rash or skin lesions [] Neurologic: Denies headache, focal weakness or sensory changes [] Endocrine: Denies polyuria or polydipsia [] All other systems were reviewed and found to be within normal limits, except as documented in this note. Current Medications Current Medications Current Medications Medications (Trade) Dose Ordered Sig/Rohith Start Time Stop Time Status Last Admin Dose Admin Adenosine (Adenocard) 6 mg 1X ONCE 10/20/19 12:30 10/20/19 12:31 DC 10/20/19 12:29 6 MG Allergies Allergies Allergies Coded Allergies Type Severity Reaction Last Updated Verified No Known Drug Allergies 02/08/14 No Physical Exam Physical Exam Constitutional: Well developed, well nourished, mild distress, non-toxic appearance. [] HENT: Normocephalic, atraumatic. Eyes: PERRLA, EOMI, conjunctiva normal, no discharge. [] Neck: Normal range of motion, no tenderness, supple, no stridor. [] Cardiovascular: Tachycardia, no murmur [] Lungs & Thorax: Bilateral breath sounds clear to auscultation [] Abdomen: Bowel sounds normal, soft, no tenderness, no masses, no pulsatile masses. [] Skin: Warm, dry, no erythema, no rash. [] Back: No tenderness, no CVA tenderness. [] Extremities: No tenderness, no cyanosis, no clubbing, ROM intact, no edema. [] Neurologic: Alert and oriented X 3, no focal deficits noted. [] Psychologic: Affect anxious, judgement normal, mood normal. [] Current Patient Data Vital Signs Vital Signs Date Time Temp Pulse Resp B/P (MAP) Pulse Ox O2 Delivery O2 Flow Rate FiO2 10/20/19 12:47 78 16 100 10/20/19 12:25 97.6 139/89 (106) Room Air 97.6 EKG EKG EKG interpreted by me. EKG at 1220 showed SVT at rate of 166, no acute ST and T- wave elevation. Radiology/Procedures Radiology/Procedures [] Course & Med Decision Making Course & Med Decision Making Evaluation of patient in ER showed 59-year-old female patient with history of frequent episodes of SVT presented with another episode of SVT with heart rate of 160s. Patient refused to have labs and x-rays and he stated she had unremarkable labs and x-ray 2 days ago while she was in this emergency room for another SVT episode. Patient treated with 6 mg of Ativan was in a combination of SVT to sinus rhythm and improvement of her condition. Patient was advised to follow-up with her dog licenser. I've spoken with the patient and/or caregivers. I've explained the patient's condition, diagnosis and treatment plan based on information available to me at this time. I've answered the patient's and/or caregivers questions and addressed any concerns. The patient and/or caregivers have a good understanding the patient's diagnosis, condition and treatment plan as can be expected at this point. Vital signs have been stabilized. The patient's condition is stable for discharge from the emergency department. The patient will pursue further outpatient evaluation with her primary care provider or other designated consulting physician as outlined in the discharge instructions. Patient and/or caregivers are agreeable to this plan of care and follow-up instructions have been explained in detail. The patient and/or caregivers have received these instructions in written format and expressed understanding of these discharge instructions. The patient and her caregivers are aware that if any significant change in condition or worsening of symptoms should prompt him to immediately return to this of the closest emergency department. If an emergent department is not readily available I would encourage him to call 911. Summer Disclaimer Summer Disclaimer This electronic medical record was generated, in whole or in part, using a voice recognition dictation system. Departure Departure Impression: Primary Impression: SVT (supraventricular tachycardia) Disposition: HOME, SELF-CARE (@1322) Condition: IMPROVED Referrals: UNKNOWN PCP NAME (PCP) Patient Instructions: Supraventricular Tachycardia Additional Instructions: Drink plenty of liquids Follow-up with your dog licenser in 2-3 days Return to ER if not getting better Continue current medication Thank you for visiting [facility]. We appreciate you trusting us with your care. If any additional problems come up don't hesitate to return to visit us. Please follow up with your primary care provider so they can plan additional care if needed and know about the problem that you had. If symptoms worsen come back to the Emergency Department. Any concerning symptoms that start such as chest pain, shortness of air, weakness or numbness on one side of the body, running high fevers or any other concerning symptoms return to the ER. JIMI JOHNSON MD Oct 20, 2019 12:35
[2019-10-20 13:17] VITALS: BP 107/70
--- NOTE | 2019-10-21 16:47 | EKG ---
[facility] [address] [place] [address] Test Date: 2019-10-20 Test Time: 12:20:50 Pat Name: MURALI ALBA Department: Room: Gender: F Program Aide: : 1960 Requested By: JIMI JOHNSON Order Number: [id number] Reading MD: Measurements Intervals [place] Rate: 165 P: [place]: QRS: 26 QRSD: 84 T: 153 QT: 284 QTc: 473 Interpretive Statements SUPRAVENTRICULAR TACHYCARDIA ST ABNORMALITY, POSSIBLE INFERIOR SUBENDOCARDIAL INJURY ABNORMAL ECG No previous ECG available for comparison
== END 2019-10-20 13:39 | disposition home or self-care (01) ==
LOC: ER 12:15
DX: I47.1 Supraventricular tachycardia (principal); R06.02 Shortness of breath; R00.2 Palpitations; I97.89 Other postprocedural complications and disorders of the circulatory system, not elsewhere classified; I25.10 Atherosclerotic heart disease of native coronary artery without angina pectoris; Z90.89 Acquired absence of other organs; Z98.890 Other specified postprocedural states
CPT/HCPCS: 93005; 96374; 99284; J0153

== ENCOUNTER 2019-11-26 05:40 | Emergency (ER) | payer SELFPAY ==
[~2019-11-26] VITALS: Ht 172.7 cm; Wt 65.9 kg
--- NOTE | 2019-11-26 05:52 | PHYS DOC ---
Past Medical History Past Medical History: Arrhythmia, CAD Additional Past Medical Histor: svt (JAYLON SALOMON Jr., DO) Past Surgical History: Tonsillectomy Additional Past Surgical Histo: bone removed from foot, lumpectomy (JAYLON SALOMON Jr., DO) Smoking Status: Former Smoker Alcohol Use: None Drug Use: None (JAYLON SALOMON Jr., DO) Adult General Chief Complaint Chief Complaint: RAPID HEART RATE HPI HPI Patient is a 59 year old female who presents with complaint of episode of SVT t hat started at about 5:15 this morning. Patient states that woke her up from sleep. Patient has long history of SVT and has been seen at this facility numerous times for treatment. Patient denies any chest pain but does admit to some shortness of breath with exertion. Patient indicates that she does not want any blood work drawn.[] (JAYLON SALOMON Jr., DO) Review of Systems Review of Systems Constitutional: Denies fever or chills [] Respiratory: Denies cough or shortness of breath [] Cardiovascular: No additional information not addressed in HPI [] GI: Denies abdominal pain, nausea, vomiting or diarrhea [] Integument: Denies rash or skin lesions [] Neurologic: Denies headache, focal weakness or sensory changes [] All other systems were reviewed and found to be within normal limits, except as documented in this note. (JAYLON SALOMON Jr., DO) Current Medications Current Medications Current Medications Medications (Trade) Dose Ordered Sig/Rohith Start Time Stop Time Status Last Admin Dose Admin Adenosine (Adenocard) 6 mg 1X ONCE 11/26/19 06:00 11/26/19 06:01 DC 11/26/19 06:09 6 MG Sodium Chloride 1,000 ml @ 1,000 mls/hr Q1H 11/26/19 06:00 11/26/19 06:59 11/26/19 06:11 1,000 MLS/HR (SHE HUTCHISON MD) Allergies Allergies Allergies Coded Allergies Type Severity Reaction Last Updated Verified No Known Drug Allergies 02/08/14 No (SHE HUTCHISON MD) Physical Exam Physical Exam Constitutional: Well developed, well nourished, no acute distress, non-toxic appearance. [] HENT: Normocephalic, atraumatic, bilateral external ears normal, oropharynx moist, no oral exudates, nose normal. [] Eyes: PERRLA, EOMI, conjunctiva normal, no discharge. [] Neck: Normal range of motion, no tenderness, supple, no stridor. [] Cardiovascular: Markedly tachycardic rate with regular rhythm[] Lungs & Thorax: Bilateral breath sounds clear to auscultation [] Abdomen: Bowel sounds normal, soft, no tenderness. [] Skin: Warm, dry, no erythema, no rash. [] Extremities: No tenderness, no cyanosis, no clubbing, ROM intact, no edema. [] Neurologic: Alert and oriented X 3, no focal deficits noted. [] (JAYLON SALOMON Jr., DO) Current Patient Data Vital Signs Vital Signs Date Time Temp Pulse Resp B/P (MAP) Pulse Ox O2 Delivery O2 Flow Rate FiO2 11/26/19 06:05 170 20 100 11/26/19 05:50 97.7 127/88 (101) Nasal Cannula 2.0 97.7 (SHE HUTCHISON MD) EKG EKG [] (JAYLON SALOMON Jr., DO) EKG Initial EKG, done at 5:52 AM, shows SVT at a rate of 158 beats for minute, normal axis, normal intervals, nonspecific ST/T changes. After 6 mg of adenosine were administered, repeat EKG shows normal sinus rhythm at a rate of 98 bpm, normal axis, normal intervals. There are no acute ischemic ST/T changes, nonspecific changes are present. (HSE HUTCHISON MD) Radiology/Procedures Radiology/Procedures [] (JAYLON SALOMON Jr., DO) Course & Med Decision Making Course & Med Decision Making Pertinent Labs and Imaging studies reviewed. (See chart for details) Patient moved to room upon arrival was evaluated by your medical staff after which an EKG was obtained and an IV established. Patient has refused any blood work at this time. At this time, Adenocard treatment is pending and patient is being signed out to the oncoming ER physician at 6:00 AM. (JAYLON SALOMON Jr., DO) Course & Med Decision Making 6:20 AM: The patient's condition remains stable. She remains in sinus rhythm after conversion with SVT. She takes 240 mg of Cardizem daily. She refuses all blood work at this time. I discussed importance of close cardiology follow-up, and return precautions in detail. (SHE HUTCHISON MD) Dragon Disclaimer Dragon Disclaimer This electronic medical record was generated, in whole or in part, using a voice recognition dictation system. (JAYLON SALOMON Jr. DO) Departure Departure Impression: Primary Impression: SVT (supraventricular tachycardia) Disposition: 07 AGAINST MEDICAL ADVICE Condition: STABLE Referrals: EYAD INMAN MD Patient Instructions: Supraventricular Tachycardia JAYLON SALOMON Jr., DO Nov 26, 2019 05:52 SHE HUTCHISON MD Nov 26, 2019 06:16
--- NOTE | 2019-11-26 05:58 | EKG ---
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
[2019-11-26] MEDS ORDERED: ADENOSINE 6 MG/2 ML VIAL. IV ONE (06:00)
[2019-11-26] MEDS ORDERED: IV NORMAL SALINE 1000ML BAG 1,000 ML IV SCH (06:00)
[2019-11-26 06:14] VITALS: BP 133/72
--- NOTE | 2019-11-26 06:37 | EKG ---
[facility] [address] [place] [address] Test Date: 2019-11-26 Test Time: 06:14:11 Pat Name: MURALI ALBA Department: Room: Gender: F Councilman: : 1960 Requested By: SHE HUTCHISON Order Number: [id number] Reading MD: Measurements Intervals [place] Rate: 98 P: -36 TN: 134 QRS: 62 QRSD: 86 T: 62 QT: 356 QTc: 456 Interpretive Statements SINUS RHYTHM NO SPECIFIC ECG ABNORMALITIES RI6.01 No previous ECG available for comparison
== END 2019-11-26 06:24 | disposition home or self-care (01) ==
LOC: ER 05:40
DX: I47.1 Supraventricular tachycardia (principal); R06.02 Shortness of breath; I97.89 Other postprocedural complications and disorders of the circulatory system, not elsewhere classified; I25.10 Atherosclerotic heart disease of native coronary artery without angina pectoris; Z90.89 Acquired absence of other organs; Z87.891 Personal history of nicotine dependence; Z98.890 Other specified postprocedural states
CPT/HCPCS: 93005; 96374; 99283; J0153; J7030

== ENCOUNTER 2019-12-15 09:34 | Emergency (ER) | payer SELFPAY ==
[~2019-12-15] VITALS: Ht 172.7 cm; Wt 75.0 kg
[2019-12-15] MEDS ORDERED: ADENOSINE 6 MG/2 ML VIAL. IV ONE ×2 (09:37→10:00)
--- NOTE | 2019-12-15 09:51 | PHYS DOC ---
Past Medical History Past Medical History: Arrhythmia, CAD Additional Past Medical Histor: svt Past Surgical History: Tonsillectomy Additional Past Surgical Histo: bone removed from foot, lumpectomy Smoking Status: Former Smoker Alcohol Use: None Drug Use: None Adult General Chief Complaint Chief Complaint: RAPID HEART RATE HPI HPI Patient is a 59 year old female who is brought to the ER by her secondary to concern for SVT. Patient has an extensive history of SVT and has required multiple chemical cardioversions in the past. At home she has tried vagal maneuvers as well as beta-neo and diltiazem. She states her symptoms started this morning and woke her from sleep. She normally comes to the ER, received adenosine, and then goes home. Review of Systems Review of Systems All other systems were reviewed and found to be within normal limits, except as documented in this note. Current Medications Current Medications Current Medications Medications (Trade) Dose Ordered Sig/Rohith Start Time Stop Time Status Last Admin Dose Admin Adenosine (Adenocard) 6 mg STK-MED ONCE 12/15/19 09:37 12/15/19 09:37 DC Allergies Allergies Allergies Coded Allergies Type Severity Reaction Last Updated Verified No Known Drug Allergies 02/08/14 No Physical Exam Physical Exam Constitutional: Well developed, well nourished, mildly anxious, non-toxic appearance. [] HENT: Normocephalic, atraumatic, bilateral external ears normal, oropharynx moist, no oral exudates, nose normal. [] Eyes: PERRLA, EOMI, conjunctiva normal, no discharge. [] Neck: Normal range of motion, no tenderness, supple, no stridor. [] Cardiovascular: Tachycardic, no murmur [] Lungs & Thorax: Bilateral breath sounds clear to auscultation [] Abdomen: Bowel sounds normal, soft, no tenderness, no masses, no pulsatile masses. [] Skin: Warm, dry, no erythema, no rash. [] Back: No tenderness, no CVA tenderness. [] Extremities: No tenderness, no cyanosis, no clubbing, ROM intact, no edema. [] Neurologic: Alert and oriented X 3, normal motor function, normal sensory function, no focal deficits noted. [] Psychologic: Affect normal, judgement normal, mood normal. [] EKG EKG Initial EKG shows SVT with a heart rate of 185. Repeat EKG after adenosine shows sinus tachycardia with a heart rate of 111 with normal intervals and no ST elevation. [] Radiology/Procedures Radiology/Procedures [] Course & Med Decision Making Course & Med Decision Making Pertinent Labs and Imaging studies reviewed. (See chart for details) 0950: Patient seen for SVT. She was given 6 mg of adenosine which does seem to have converted her. Will finish IV fluids and discharge home as the patient is stable. She is strongly encouraged to follow-up with cardiology although she states she cannot receive an ablation secondary to lack of insurance. Dragon Disclaimer Dragon Disclaimer This electronic medical record was generated, in whole or in part, using a voice recognition dictation system. Departure Departure Impression: Primary Impression: SVT (supraventricular tachycardia) Disposition: 01 HOME, SELF-CARE Condition: STABLE Referrals: UNKNOWN PCP NAME (PCP) Patient Instructions: Supraventricular Tachycardia JUAN R JANE DO Dec 15, 2019 09:51
[2019-12-15] MEDS ORDERED: IV NORMAL SALINE 1000ML BAG 1,000 ML IV ONE (10:00)
[2019-12-15 10:25] VITALS: BP 133/81
--- NOTE | 2019-12-15 15:36 | EKG ---
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
--- NOTE | 2019-12-15 15:39 | EKG ---
[address] [place] [address] Test Date: 2019-12-15 Test Time: 09:47:39 Pat Name: MURALI ALBA Department: Room: Gender: F Aircraft Navigator: : 1960 Requested By: JUAN R JANE Order Number: [id number] Reading MD: Measurements Intervals [place] Rate: 111 P: -72 CT: 134 QRS: 60 QRSD: 82 T: 74 QT: 320 QTc: 438 Interpretive Statements SINUS TACHYCARDIA NON SPECIFIC ST DEPRESSION BORDERLINE ECG No previous ECG available for comparison
== END 2019-12-15 10:20 | disposition home or self-care (01) ==
LOC: ER 09:34
DX: I47.1 Supraventricular tachycardia (principal); I49.9 Cardiac arrhythmia, unspecified; I25.10 Atherosclerotic heart disease of native coronary artery without angina pectoris; Z98.890 Other specified postprocedural states; Z87.891 Personal history of nicotine dependence
CPT/HCPCS: 93005; 96374; 99284; J0153; J7030

== ENCOUNTER 2020-01-22 05:25 | Emergency (ER) | payer SELFPAY ==
[~2020-01-22] VITALS: Ht 172.7 cm; Wt 61.2 kg
[2020-01-22] MEDS ORDERED: ADENOSINE 6 MG/2 ML VIAL. IV ONE ×2 (05:31→06:00)
--- NOTE | 2020-01-22 05:47 | PHYS DOC ---
Past Medical History Past Medical History: Arrhythmia, CAD Additional Past Medical Histor: svt Past Surgical History: Tonsillectomy Additional Past Surgical Histo: bone removed from foot, lumpectomy Smoking Status: Former Smoker Alcohol Use: None Drug Use: None General Adult EDM: Chief Complaint: palpitations HPI: HPI: Patient is a 59 year old female who presents with complaint of rapid heartbeat. Patient has been seen here numerous times with SVT and returns for repeat SVT this morning. She denies any chest pain. She does indicate that she has some tightness in her chest and shortness of breath with exertion. Patient states that she has tried vagal maneuvers at home without success. SVT started earlier this morning.[] Review of Systems: Review of Systems: Constitutional: Denies fever or chills. [] Respiratory: Denies cough or shortness of breath. [] Cardiovascular: Denies chest pain or edema. Positive palpitations. [] GI: Denies abdominal pain, nausea, vomiting or diarrhea. [] Integument: Denies rash. [] Neurologic: Denies headache, focal weakness or sensory changes. [] Heart Score: Risk Factors: Risk Factors: DM, Current or recent (<one month) smoker, HTN, HLP, family history of CAD, obesity. Risk Scores: Score 0 - 3: 2.5% MACE over next 6 weeks - Discharge Home Score 4 - 6: 20.3% MACE over next 6 weeks - Admit for Clinical Observation Score 7 - 10: 72.7% MACE over next 6 weeks - Early Invasive Strategies Current Medications: Current Medications Medications (Trade) Dose Ordered Sig/[facility] Start Time Stop Time Status Last Admin Dose Admin Adenosine (Adenocard) 6 mg 1X ONCE 01/22/20 06:00 01/22/20 06:01 Sodium Chloride 1,000 ml @ 1,000 mls/hr 1X ONCE 01/22/20 06:00 01/22/20 06:59 Allergies: Allergies: Allergies Coded Allergies Type Severity Reaction Last Updated Verified No Known Drug Allergies 02/08/14 No Physical Exam: PE: Constitutional: Well developed, well nourished, no acute distress, non-toxic appearance. [] HENT: Normocephalic, atraumatic, bilateral external ears normal, oropharynx moist, no oral exudates, nose normal. [] Eyes: PERRLA, EOMI, conjunctiva normal, no discharge. [] Neck: Normal range of motion, no tenderness, supple. [] Cardiovascular: Markedly tachycardic rate with regular rhythm[] Lungs & Thorax: Bilateral breath sounds clear to auscultation [] Abdomen: Bowel sounds normal, soft, no tenderness. [] Skin: Warm, dry, no erythema, no rash. [] Extremities: No tenderness, no cyanosis, no clubbing, ROM intact, no edema. [] Neurologic: Alert and oriented X 3, no focal deficits noted. [] EKG: EKG: EKG demonstrates SVT with rate of 158.[] Radiology/Procedures: Radiology/Procedures: [] Course & Med Decision Making: Course & Med Decision Making Pertinent Labs and Imaging studies reviewed. (See chart for details) Patient moved to room upon arrival was evaluated by your medical staff after which an IV was established and IV fluids following. After establishing that patient is in supraventricular tachycardia, patient was given a dose of a denosine 6 mg IV after which patient converted back to sinus rhythm. Initial plan was to complete blood work; however, given that patient has been here on numerous occasions for the same complaint, she is requesting no blood work to be completed. A repeat EKG has been performed that demonstrates normal sinus rhythm. Dragon Disclaimer: Summer Disclaimer: This electronic medical record was generated, in whole or in part, using a voice recognition dictation system. Departure Departure Impression: Primary Impression: SVT (supraventricular tachycardia) Disposition: HOME, SELF-CARE Condition: STABLE Referrals: UNKNOWN PCP NAME (PCP) Patient Instructions: Supraventricular Tachycardia JAYLON SALOMON Jr. DO Jan 22, 2020 05:47
[2020-01-22] MEDS ORDERED: IV NORMAL SALINE 1000ML BAG 1,000 ML IV ONE (06:00)
[2020-01-22 06:10] VITALS: BP 117/71
--- NOTE | 2020-01-22 06:12 | EKG ---
[facility] [address] [place] [address] Test Date: 2020-01-22 Test Time: 05:30:55 Pat Name: MURALI ALBA Department: Room: Gender: F Nursing Care Attendant: : 1960 Requested By: JAYLON SALOMON Order Number: [id number] Reading MD: Nathen Garza Measurements Intervals [place] Rate: 158 P: [place]: QRS: 59 QRSD: 86 T: -41 QT: 282 QTc: 462 Interpretive Statements SUPRAVENTRICULAR TACHYCARDIA ST & T ABNORMALITY, CONSIDER INFEROLATERAL ISCHEMIA OR LEFT VENTRICULAR STRAIN ABNORMAL ECG Electronically Signed On 01-22-2020 10:33:12 CDT by Nathen Garza
--- NOTE | 2020-01-22 06:12 | EKG ---
[facility] [address] [place] [address] Test Date: 2020-01-22 Test Time: 05:55:19 Pat Name: MURALI ALBA Department: Room: Gender: F Recreational Sports Director: : 1960 Requested By: JAYLON SALOMON Order Number: [id number] Reading MD: Nathen Garza Measurements Intervals [place] Rate: 80 P: 36 NV: 172 QRS: 54 QRSD: 88 T: 39 QT: 378 QTc: 439 Interpretive Statements SINUS RHYTHM NORMAL ECG Electronically Signed On 01-22-2020 10:33:19 CDT by Nathen Garza
== END 2020-01-22 06:10 | disposition home or self-care (01) ==
LOC: ER 05:25
DX: I47.1 Supraventricular tachycardia (principal); R06.02 Shortness of breath; R07.89 Other chest pain; R00.2 Palpitations; I25.10 Atherosclerotic heart disease of native coronary artery without angina pectoris; I49.9 Cardiac arrhythmia, unspecified; Z90.89 Acquired absence of other organs; Z87.891 Personal history of nicotine dependence; Z98.890 Other specified postprocedural states
CPT/HCPCS: 93005; 96374; 99283; J0153; J7030

== ENCOUNTER 2020-01-31 11:35 | Emergency (ER) | payer SELFPAY ==
[~2020-01-31] VITALS: Ht 165.1 cm; Wt 65.9 kg
[2020-01-31] MEDS ORDERED: ADENOSINE 6 MG/2 ML VIAL. IV ONE ×2 (11:38→12:00)
--- NOTE | 2020-01-31 11:58 | EKG ---
[facility] [address] [place] [address] Test Date: 2020-01-31 Test Time: 11:42:33 Pat Name: MURALI ALBA Department: Room: Gender: F Administrative Services Specialist: : 1960 Requested By: REGGIE FOOTE Order Number: [id number] Reading MD: Nathen Garza Measurements Intervals [place] Rate: 161 P: [place]: QRS: 56 QRSD: 84 T: -65 QT: 280 QTc: 459 Interpretive Statements SUPRAVENTRICULAR TACHYCARDIA ST & T ABNORMALITY, CONSIDER INFERIOR ISCHEMIA OR LEFT VENTRICULAR STRAIN T ABNORMALITY IN LATERAL LEADS ABNORMAL ECG Electronically Signed On 02-01-2020 13:38:59 CDT by Nathen Gazra
--- NOTE | 2020-01-31 11:59 | EKG ---
[facility] [address] [place] [address] Test Date: 2020-01-31 Test Time: 11:50:17 Pat Name: MURALI ALBA Department: Room: Gender: F Senior Games Technician: : 1960 Requested By: REGGIE FOOTE Order Number: [id number] Reading MD: Balbir Aguiar MD Measurements Intervals [place] Rate: 106 P: -47 MI: 122 QRS: 70 QRSD: 86 T: 54 QT: 330 QTc: 440 Interpretive Statements SINUS TACHYCARDIA NON-SPECIFIC ST/T CHANGES Electronically Signed On 01-31-2020 12:08:47 CDT by Balbir Aguiar MD
[2020-01-31] MEDS ORDERED: IV NORMAL SALINE 1000ML BAG 1,000 ML IV ONE (12:15)
[2020-01-31 12:31] VITALS: BP 103/66
--- NOTE | 2020-01-31 12:38 | PHYS DOC ---
Past Medical History Past Medical History: Seizure Additional Past Medical Histor: SVT Past Surgical History: Tonsillectomy Additional Past Surgical Histo: bone removed from foot, lumpectomy Smoking Status: Current Every Day Smoker Alcohol Use: None Drug Use: None Adult General Chief Complaint Chief Complaint: RAPID HEART RATE HPI HPI Patient is a 59 year old female with history of PSVT who is well-known to this facility. Nadia is being treated for SVT approximately 20 times over the past 2 years. Today's episode started 30 minutes prior to ED arrival while sitting. Patient denies chest pain, shortness of breath and reports palpitations and dizziness. Triage EKG shows a heart rate in the 160s. Patient has been evaluated by cardiology numerous times and it has been recommended that she undergo cardiac ablation, but does not have healthcare insurance and is unable to proceed at this current time. Patient is on Cardizem and is compliant with treatment. No drugs or alcohol. No other acute symptoms or complaints. [] Review of Systems Review of Systems Review of symptoms as per HPI. All other review of symptoms are negative. All other systems were reviewed and found to be within normal limits, except as documented in this note. Current Medications Current Medications Current Medications Medications (Trade) Dose Ordered Sig/Rohith Start Time Stop Time Status Last Admin Dose Admin Adenosine (Adenocard) 6 mg 1X ONCE 01/31/20 12:00 01/31/20 12:01 DC 01/31/20 11:50 6 MG Sodium Chloride 1,000 ml @ 1,000 mls/hr 1X ONCE 01/31/20 12:15 01/31/20 13:14 01/31/20 11:50 1,000 MLS/HR Allergies Allergies Allergies Coded Allergies Type Severity Reaction Last Updated Verified No Known Drug Allergies 02/08/14 No Physical Exam Physical Exam Constitutional: Well developed, well nourished, no acute distress, non-toxic appearance. [] HENT: Normocephalic, atraumatic, bilateral external ears normal, oropharynx moist, nose normal. [] Eyes: PERRLA, EOMI, conjunctiva normal, no discharge. [] Neck: Normal range of motion, no tenderness. [] Cardiovascular: Tachycardia, no murmur [] Lungs & Thorax: Bilateral breath sounds clear to auscultation [] Abdomen: Bowel sounds normal. [] Skin: Warm, dry, no erythema. [] Back: No tenderness. [] Extremities: No tenderness, no edema. [] Neurologic: Alert and oriented X 3, normal motor function, normal sensory function, no focal deficits noted. [] Psychologic: Affect anxiousl, judgement normal, mood normal. [] Current Patient Data Vital Signs Vital Signs Date Time Temp Pulse Resp B/P (MAP) Pulse Ox O2 Delivery O2 Flow Rate FiO2 01/31/20 11:36 97.5 164 20 118/71 (87) 100 Nasal Cannula 2.0 97.5 EKG EKG [EKG 1: reviewed EKG 2: reviewed] Radiology/Procedures Radiology/Procedures [] Course & Med Decision Making Course & Med Decision Making Pertinent Labs and Imaging studies reviewed. (See chart for details) [Patient cardioverted to normal sinus rhythm with 6 mg of adenosine x1. Symptoms resolved. Patient maintained on monitor and norah in sinus rhythm throughout the remainder of the ED stay. Patient declines all labs as she has been extensively worked up for this in the past. Labs will not be ordered per patient request and the patient will be discharged with instructions to continue current treatment as outlined by her pediatric physical therapist.] Dragon Disclaimer Dragon Disclaimer This electronic medical record was generated, in whole or in part, using a voice recognition dictation system. Departure Departure Impression: Primary Impression: SVT (supraventricular tachycardia) Disposition: 01 HOME, SELF-CARE Condition: STABLE Patient Instructions: Supraventricular Tachycardia, [id number] Additional Instructions: Please continue current medications and follow up with your pediatric physical therapist as scheduled. Return to the ED if new or worsening symptoms. REGGIE FOOTE DO January 31, 2020 12:38
== END 2020-01-31 12:35 | disposition home or self-care (01) ==
LOC: ER 11:35
DX: I47.1 Supraventricular tachycardia (principal); F17.200 Nicotine dependence, unspecified, uncomplicated
CPT/HCPCS: 93005; 96374; 99284; J0153; J7030

== ENCOUNTER 2020-03-04 09:48 | Emergency (ER) | payer SELFPAY ==
[~2020-03-04] VITALS: Ht 172.7 cm; Wt 70.0 kg
[2020-03-04] MEDS ORDERED: ADENOSINE 6 MG/2 ML VIAL. IV ONE ×2 (09:53→10:30)
--- NOTE | 2020-03-04 10:13 | PHYS DOC ---
Past Medical History Past Medical History: Seizure Additional Past Medical Histor: SVT Past Surgical History: Tonsillectomy Additional Past Surgical Histo: bone removed from foot, lumpectomy Smoking Status: Current Every Day Smoker Alcohol Use: None Drug Use: None General Adult EDM: Chief Complaint: RAPID HEART RATE HPI: HPI: Patient is a 59 year old female with history of SVT, presented to ER today for evaluation of rapid heart rate. Patient says she was seen in her dining area, eating breakfast when her heart started racing. Patient has been evaluated here numerous times, she came here every month for SVT. Patient has been evaluated by natural gas plant supervisor, recommended to have ablation done, however she did not have money so it had not been done. Patient denies any cough or fever, no chest pain, nothing out of ordinary. Review of Systems: Review of Systems: Constitutional: Denies fever or chills. [] Eyes: Denies change in visual acuity. [] HENT: Denies nasal congestion or sore throat. [] Respiratory: Denies cough or shortness of breath. [] Cardiovascular: Positive for rapid heart rate, no chest pain, GI: Denies abdominal pain, nausea, vomiting, bloody stools or diarrhea. [] : Denies dysuria. [] Musculoskeletal: Denies back pain or joint pain. [] Integument: Denies rash. [] Neurologic: Denies headache, focal weakness or sensory changes. [] Endocrine: Denies polyuria or polydipsia. [] Lymphatic: Denies swollen glands. [] Psychiatric: Denies depression or anxiety. [] Heart Score: Risk Factors: Risk Factors: DM, Current or recent (<one month) smoker, HTN, HLP, family history of CAD, obesity. Risk Scores: Score 0 - 3: 2.5% MACE over next 6 weeks - Discharge Home Score 4 - 6: 20.3% MACE over next 6 weeks - Admit for Clinical Observation Score 7 - 10: 72.7% MACE over next 6 weeks - Early Invasive Strategies Current Medications: Current Medications Medications (Trade) Dose Ordered Sig/Rohith Start Time Stop Time Status Last Admin Dose Admin Adenosine (Adenocard) 6 mg STK-MED ONCE 03/04/20 09:53 03/04/20 09:53 DC Allergies: Allergies: Allergies Coded Allergies Type Severity Reaction Last Updated Verified No Known Drug Allergies 02/08/14 No Physical Exam: PE: Constitutional: Well developed, well nourished, no acute distress, non-toxic appearance. [] HENT: Normocephalic, atraumatic, bilateral external ears normal, oropharynx moist, no oral exudates, nose normal. [] Eyes: PERRLA, EOMI, conjunctiva normal, no discharge. [] Neck: Normal range of motion, no tenderness, supple, no stridor. [] Cardiovascular: rapid Heart rate with irregular rhythm, no murmur [] Lungs & Thorax: Bilateral breath sounds clear to auscultation [] Abdomen: Bowel sounds normal, soft, no tenderness, no masses, no pulsatile masses. [] Skin: Warm, dry, no erythema, no rash. [] Back: No tenderness, no CVA tenderness. [] Extremities: No tenderness, no cyanosis, no clubbing, ROM intact, no edema. [] Neurologic: Alert and oriented X 3, normal motor function, normal sensory function, no focal deficits noted. [] Psychologic: Affect normal, judgement normal, mood normal. [] EKG: EKG: EKG was done at 958, heart rate 152 beats per minutes, SVT, no ST segment elevation. Second EKG was done at 1004, heart rate 91 bpm normal sinus rhythm, [] Radiology/Procedures: Radiology/Procedures: [] Course & Med Decision Making: Course & Med Decision Making Pertinent Labs and Imaging studies reviewed. (See chart for details) Patient was given adenosine 6 mg iv, converted to SINUS RHYTHM, FELT MUCH BETTER, WANTED TO BE DISCHARGED HOME. Summer Disclaimer: Summer Disclaimer: This electronic medical record was generated, in whole or in part, using a voice recognition dictation system. Departure Departure Impression: Primary Impression: SVT (supraventricular tachycardia) Disposition: HOME, SELF-CARE Condition: IMPROVED Referrals: NO PCP (PCP) EYAD INMAN MD please follow up with this natural gas plant supervisor next week. Patient Instructions: Supraventricular Tachycardia Justicifation of Admission Dx: Justifications for Admission: Justification of Admission Dx: N/A ABBIE BALDERRAMA DO Mar 04, 2020 10:13
[2020-03-04 10:23] VITALS: BP 137/69
[2020-03-04 10:26] LABS: CALCIUM 8.2 mg/dL (8.5-10.1); CREATININE 1.3 mg/dL (0.6-1.0); GFR 42.2; POTASSIUM 3.6 mmol/L (3.5-5.1)
[2020-03-04 10:32] LABS: ALBUMIN 3.6 g/dL (3.4-5.0); ALBUMIN/GLOBULIN RATIO 1.1 (1.0-1.7); TOTAL BILIRUBIN 0.4 mg/dL (0.2-1.0)
[2020-03-04 11:02] LABS: BASO # 0.1 x10^3/uL (0.0-0.2); BASO % 1 % (0-3); EOS # 0.2 x10^3/uL (0.0-0.7); EOS % 2 % (0-3); HEMATOCRIT 41.5 % (36.0-47.0); LYMPH # 3.2 x10^3/uL (1.0-4.8); LYMPH % 40 % (24-48); MEAN CORPUSCULAR HEMOGLOBIN 28 pg (25-35); MEAN CORPUSCULAR HGB CONC 34 g/dL (31-37); MEAN CORPUSCULAR VOLUME 83 fL (79-100); MONO # 0.6 x10^3/uL (0.0-1.1); MONO % 7 % (0-9); NEUT % 50 % (31-73); PLATELET COUNT 240 x10^3/uL (140-400); RED CELL DISTRIBUTION WIDTH 15.7 % (11.5-14.5)
--- NOTE | 2020-03-05 06:49 | EKG ---
[facility] [address] [place] [address] Test Date: 2020-03-04 Test Time: 09:58:51 Pat Name: MURALI ALBA Department: Room: Gender: F Nail Galvanizer: : 1960 Requested By: ABBIE BALDERRAMA Order Number: [id number] Reading MD: Alex Morgan Measurements Intervals [place] Rate: 152 P: [place]: QRS: 61 QRSD: 86 T: 268 QT: 292 QTc: 471 Interpretive Statements SVT NONSPECIFIC ST-T WAVE CHANGES. Electronically Signed On 03-07-2020 16:09:31 CDT by Alex Morgan
== END 2020-03-04 11:11 | disposition home or self-care (01) ==
LOC: ER 09:48
DX: I47.1 Supraventricular tachycardia (principal); F17.200 Nicotine dependence, unspecified, uncomplicated
CPT/HCPCS: 36415; 80053; 83735; 84484; 85025; 93005; 96374; 99284; J0153

== ENCOUNTER 2020-03-09 04:29 | Emergency (ER) | payer SELFPAY ==
[~2020-03-09] VITALS: Ht 172.7 cm; Wt 62.7 kg
[2020-03-09] MEDS ORDERED: ADENOSINE 6 MG/2 ML VIAL. IV ONE (04:33)
--- NOTE | 2020-03-09 04:59 | PHYS DOC ---
Past Medical History Past Medical History: Seizure, Other Additional Past Medical Histor: SVT Past Surgical History: Tonsillectomy Additional Past Surgical Histo: bone removed from foot, lumpectomy Smoking Status: Current Every Day Smoker Alcohol Use: None Drug Use: None General Adult EDM: Chief Complaint: CHEST PAIN-CARDIAC NATURE HPI: HPI: Patient is a 59 year old female who presents with palpitations with recurrence of SVT. Patient is well-known to the department having presented with multiple episodes of SVT in the past. Patient is requesting no work-up be done at this time. She is requesting only treatment. She denies any chest pain or shortness of breath. She states that she just feels out of sorts. [] Review of Systems: Review of Systems: Constitutional: Denies fever or chills. [] Respiratory: Denies cough or shortness of breath. [] Cardiovascular: Denies chest pain or edema. Complains of palpitations [] Neurologic: Denies headache, focal weakness or sensory changes. [] Heart Score: Risk Factors: Risk Factors: DM, Current or recent (<one month) smoker, HTN, HLP, family history of CAD, obesity. Risk Scores: Score 0 - 3: 2.5% MACE over next 6 weeks - Discharge Home Score 4 - 6: 20.3% MACE over next 6 weeks - Admit for Clinical Observation Score 7 - 10: 72.7% MACE over next 6 weeks - Early Invasive Strategies Current Medications: Current Medications Medications (Trade) Dose Ordered Sig/Rohith Start Time Stop Time Status Last Admin Dose Admin Adenosine (Adenocard) 6 mg STK-MED ONCE 03/09/20 04:33 03/09/20 04:34 DC Allergies: Allergies: Allergies Coded Allergies Type Severity Reaction Last Updated Verified No Known Drug Allergies 02/08/14 No Physical Exam: PE: Constitutional: Well developed, well nourished, no acute distress, non-toxic appearance. [] Cardiovascular: Markedly tachycardic rate with regular rhythm [] Lungs & Thorax: Bilateral breath sounds clear to auscultation [] Abdomen: Bowel sounds normal, soft, no tenderness. [] Neurologic: Alert and oriented X 3, no focal deficits noted. [] Current Patient Data: Vital Signs: Vital Signs Date Time Temp Pulse Resp B/P (MAP) Pulse Ox O2 Delivery O2 Flow Rate FiO2 03/09/20 04:32 98.2 154 20 139/79 (99) 100 Room Air 98.2 EKG: EKG: EKG demonstrates SVT with a rate of 160. [] Radiology/Procedures: Radiology/Procedures: [] Course & Med Decision Making: Course & Med Decision Making Pertinent Labs and Imaging studies reviewed. (See chart for details) Patient moved to room upon arrival was evaluated by ER medical staff after which an IV was established. Patient was treated with 1 single dose of Identicard 6 mg IV and patient rapidly converted to sinus rhythm. Dragon Disclaimer: Dragon Disclaimer: This electronic medical record was generated, in whole or in part, using a voice recognition dictation system. Departure Departure Impression: Primary Impression: SVT (supraventricular tachycardia) Disposition: 01 HOME, SELF-CARE Condition: STABLE Referrals: NO PCP (PCP) Patient Instructions: Supraventricular Tachycardia Justicifation of Admission Dx: Justifications for Admission: Justification of Admission Dx: Comment: (svt) JAYLON SALOMON Jr. DO Mar 09, 2020 04:58
[2020-03-09 05:36] VITALS: BP 118/65
--- NOTE | 2020-03-10 07:53 | EKG ---
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
--- NOTE | 2020-03-10 10:09 | EKG ---
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
== END 2020-03-09 05:39 | disposition home or self-care (01) ==
LOC: ER 04:29
DX: I47.1 Supraventricular tachycardia (principal); R00.2 Palpitations
CPT/HCPCS: 93005; 99285

== ENCOUNTER 2020-03-17 08:02 | Emergency (ER) | payer SELFPAY ==
[~2020-03-17] VITALS: Ht 172.7 cm; Wt 64.5 kg
[2020-03-17] MEDS ORDERED: ADENOSINE 6 MG/2 ML VIAL. IV ONE ×2 (08:11→09:00)
--- NOTE | 2020-03-17 08:26 | PHYS DOC ---
Past Medical History Past Medical History: Seizure, Other Additional Past Medical Histor: SVT Past Surgical History: Tonsillectomy Additional Past Surgical Histo: bone removed from foot, lumpectomy Smoking Status: Current Every Day Smoker Alcohol Use: None Drug Use: None General Adult EDM: Chief Complaint: RAPID HEART RATE HPI: HPI: Patient is a 59-year-old female with a history of SVT who is had multiple chemical cardioversions in our emergency department over the last several months presents with another episode of palpitations/tachycardia this morning. She states she has been taking her beta-neo and calcium channel neo as prescribed. She states she has an appointment with an sales development coordinator at coming up soon. She states she is supposed to have an ablation for this. She is adamant that she wants no blood work or any other further work-up because she does not have the ability to pay for it. [] Review of Systems: Review of Systems: Constitutional: Denies fever or chills. [] Eyes: Denies change in visual acuity. [] HENT: Denies nasal congestion or sore throat. [] Respiratory: Denies cough or shortness of breath. [] Cardiovascular: Per HPI [] GI: Denies abdominal pain, nausea, vomiting, bloody stools or diarrhea. [] : Denies dysuria. [] Musculoskeletal: Denies back pain or joint pain. [] Integument: Denies rash. [] Neurologic: Denies headache, focal weakness or sensory changes. [] Endocrine: Denies polyuria or polydipsia. [] Lymphatic: Denies swollen glands. [] Psychiatric: Denies depression or anxiety. [] Heart Score: Risk Factors: Risk Factors: DM, Current or recent (<one month) smoker, HTN, HLP, family history of CAD, obesity. Risk Scores: Score 0 - 3: 2.5% MACE over next 6 weeks - Discharge Home Score 4 - 6: 20.3% MACE over next 6 weeks - Admit for Clinical Observation Score 7 - 10: 72.7% MACE over next 6 weeks - Early Invasive Strategies Current Medications: Current Medications Medications (Trade) Dose Ordered Sig/Rohith Start Time Stop Time Status Last Admin Dose Admin Adenosine (Adenocard) 6 mg STK-MED ONCE 03/17/20 08:11 03/17/20 08:11 DC Allergies: Allergies: Allergies Coded Allergies Type Severity Reaction Last Updated Verified No Known Drug Allergies 02/08/14 No Physical Exam: PE: Constitutional: Well developed, well nourished, no acute distress, non-toxic appearance. [] HENT: Normocephalic, atraumatic, bilateral external ears normal, oropharynx moist, no oral exudates, nose normal. [] Eyes: PERRLA, EOMI, conjunctiva normal, no discharge. [] Neck: Normal range of motion, no tenderness, supple, no stridor. [] Cardiovascular: Tachycardic no murmur [] Lungs & Thorax: Bilateral breath sounds clear to auscultation [] Abdomen: Bowel sounds normal, soft, no tenderness, no masses, no pulsatile masses. [] Skin: Warm, dry, no erythema, no rash. [] Back: No tenderness, no CVA tenderness. [] Extremities: No tenderness, no cyanosis, no clubbing, ROM intact, no edema. [] Neurologic: Alert and oriented X 3, normal motor function, normal sensory function, no focal deficits noted. [] Psychologic: Extremely anxious [] EKG: EKG: EKG #1 supraventricular tachycardia rate of 160 no obvious ischemic changes EKG #2 shows supraventricular tachycardia followed by normal sinus rhythm rate in the 70s with no ischemic ST-T changes [] Radiology/Procedures: Radiology/Procedures: [] Course & Med Decision Making: Course & Med Decision Making Pertinent Labs and Imaging studies reviewed. (See chart for details) Procedure: Chemical cardioversion 6 mg of adenosine was pushed followed by rapid flush with an immediate conversion to normal sinus rhythm. Patient tolerated procedure well] Summer Disclaimer: Summer Disclaimer: This electronic medical record was generated, in whole or in part, using a voice recognition dictation system. Departure Departure Impression: Primary Impression: SVT (supraventricular tachycardia) Disposition: 01 HOME, SELF-CARE Condition: STABLE Referrals: NO PCP (PCP) Patient Instructions: Supraventricular Tachycardia Additional Instructions: Follow with your slat pickler at [facility] as scheduled. Return to the emergency department with any new or concerning symptoms Justicifation of Admission Dx: Justifications for Admission: Justification of Admission Dx: No HUSSAIN MCPHERSON DO Mar 17, 2020 08:25
[2020-03-17 08:45] VITALS: BP 141/74
--- NOTE | 2020-03-17 13:51 | EKG ---
[facility] [address] [place] [address] Test Date: 2020-03-17 Test Time: 08:12:48 Pat Name: MURALI ALBA Department: Room: Gender: F Signaler: : 1960 Requested By: HUSSAIN MCPHERSON Order Number: [id number] Reading MD: Measurements Intervals [place] Rate: 160 P: [place]: QRS: 75 QRSD: 80 T: 59 QT: 290 QTc: 475 Interpretive Statements SUPRAVENTRICULAR TACHYCARDIA LVH WITH REPOLARIZATION ABNORMALITY ABNORMAL ECG RI6.02 No previous ECG available for comparison
== END 2020-03-17 09:03 | disposition home or self-care (01) ==
LOC: ER 08:02
DX: I47.1 Supraventricular tachycardia (principal); R20.0 Anesthesia of skin; F17.200 Nicotine dependence, unspecified, uncomplicated; Z90.89 Acquired absence of other organs; Z98.890 Other specified postprocedural states
CPT/HCPCS: 93005; 96374; 99283; J0153

== ENCOUNTER 2020-04-01 23:59 | Emergency (ER) | payer SELFPAY ==
[~2020-04-01] VITALS: Ht 172.7 cm; Wt 65.9 kg
[~2020-04-01 23:59] MED LIST changes: +ADENOSINE 6 MG/2 ML VIAL. IV ONE
[2020-04-02] MEDS ORDERED: ADENOSINE 6 MG/2 ML VIAL. IV ONE (00:01)
--- NOTE | 2020-04-02 00:28 | PHYS DOC ---
Past Medical History Past Medical History: Seizure, Other Additional Past Medical Histor: SVT Past Surgical History: Tonsillectomy Additional Past Surgical Histo: bone removed from foot, lumpectomy Smoking Status: Current Every Day Smoker Alcohol Use: None Drug Use: None General Adult EDM: Chief Complaint: RAPID HEART RATE HPI: HPI: Patient is a 59 year old female presents to the ED with a chief complaint of palpitations. Patient states that it started about 25 minutes ago she was sitting home watching TV. Patient states that she has a history of multiple episodes like this most recent one was in March 17, 2020. Patient states that when she comes into the ER she usually gets adenosine and converted to normal sinus rhythm. Patient declines any lab work. States that she does not have insurance and all her lab work is always normal.. Review of Systems: Review of Systems: Constitutional: Denies fever or chills. [] Eyes: Denies change in visual acuity. [] HENT: Denies nasal congestion or sore throat. [] Respiratory: Denies cough or shortness of breath. [] Cardiovascular: Complains of palpitations [] GI: Denies abdominal pain, nausea, vomiting, bloody stools or diarrhea. [] : Denies dysuria. [] Neurologic: Denies headache, focal weakness or sensory changes. [] Heart Score: Risk Factors: Risk Factors: DM, Current or recent (<one month) smoker, HTN, HLP, family history of CAD, obesity. Risk Scores: Score 0 - 3: 2.5% MACE over next 6 weeks - Discharge Home Score 4 - 6: 20.3% MACE over next 6 weeks - Admit for Clinical Observation Score 7 - 10: 72.7% MACE over next 6 weeks - Early Invasive Strategies Current Medications: Current Medications Medications (Trade) Dose Ordered Sig/Rohith Start Time Stop Time Status Last Admin Dose Admin Adenosine (Adenocard) 6 mg STK-MED ONCE 04/02/20 00:01 04/02/20 00:02 DC Allergies: Allergies: Allergies Coded Allergies Type Severity Reaction Last Updated Verified No Known Drug Allergies 02/08/14 No Physical Exam: PE: Constitutional: Well developed, well nourished, no acute distress, non-toxic appearance. [] HENT: Normocephalic, atraumatic Eyes: EOMI Neck: Normal range of motion Cardiovascular: Tachycardia, regular rhythm Lungs & Thorax: Bilateral breath sounds clear to auscultation [] Abdomen: Bowel sounds normal, soft, no tenderness Extremities: No tenderness, ROM intact Neurologic: Alert and oriented X 3 Current Patient Data: Vital Signs: Vital Signs Date Time Temp Pulse Resp B/P (MAP) Pulse Ox O2 Delivery O2 Flow Rate FiO2 04/02/20 00:08 98.7 18 106/74 (85) 100 Room Air 98.7 EKG: EKG: [EKG interpretation: 12: 09 AM on 04/02/2020 HR: 152 Narrow complex tachycardia Regular intervals Normal axis Nonspecific ST changes EKG #2 interpretation 12: 15 AM on 04/02/2020 HR: 99 Sinus rhythm Regular intervals Normal axis Nonspecific ST changes ] Radiology/Procedures: Radiology/Procedures: [] Course & Med Decision Making: Course & Med Decision Making Patient placed on manager cardiac cath. Patient is given 1 L IV fluids. Consent is signed by the patient. Adenosine 6 mg IV is given to the patient. Patient has conversion to normal sinus rhythm. Patient tolerated procedure without any difficulty. Patient again refuses any labs or imaging. We will monitor the patient for some time and then patient was to be discharged home. Discussed plan of care with patient. Patient is instructed to follow up with PCP in one to 2 days. Appropriate discharge instructions given to patient to return to the ED or to seek immediate medical evaluation. Patient is instructed to return to the ED if symptoms worsen or if any concerns. Summer Disclaimer: Summer Disclaimer: This electronic medical record was generated, in whole or in part, using a voice recognition dictation system. Departure Departure Impression: Primary Impression: SVT (supraventricular tachycardia) Disposition: 01 HOME, SELF-CARE Condition: IMPROVED Referrals: NO PCP (PCP) Patient Instructions: Supraventricular Tachycardia Justicifation of Admission Dx: Justifications for Admission: Justification of Admission Dx: No KENJI SANDS DO Apr 02, 2020 00:28
[2020-04-02 01:18] VITALS: BP 136/80
--- NOTE | 2020-04-02 05:58 | EKG ---
[facility] [address] [place] [address] Test Date: 2020-04-02 Test Time: 00:15:27 Pat Name: MURALI ALBA Department: Room: Gender: F Logistics And Planning Manager: : 1960 Requested By: KENJI SANDS Order Number: [id number] Reading MD: Measurements Intervals [place] Rate: 99 P: 22 PA: 164 QRS: 68 QRSD: 90 T: 29 QT: 340 QTc: 442 Interpretive Statements SINUS RHYTHM ST & T ABNORMALITY, CONSIDER ANTEROLATERAL ISCHEMIA OR LEFT VENTRICULAR STRAIN ABNORMAL ECG RI6.02 Compared to ECG 04/02/2020 00:09:13 Supraventricular tachycardia no longer present T-wave abnormality still present Possible ischemia still present
--- NOTE | 2020-04-02 13:58 | EKG ---
[facility] [address] [place] [address] Test Date: 2020-04-02 Test Time: 00:09:13 Pat Name: MURALI ALBA Department: Room: Gender: F Studio Engineer: : 1960 Requested By: KENJI SANDS Order Number: [id number] Reading MD: Measurements Intervals [place] Rate: 152 P: [place]: QRS: 59 QRSD: 84 T: -88 QT: 284 QTc: 458 Interpretive Statements SUPRAVENTRICULAR TACHYCARDIA ST & T ABNORMALITY, CONSIDER ANTEROLATERAL ISCHEMIA OR LEFT VENTRICULAR STRAIN INFEROLATERAL ISCHEMIA OR LEFT VENTRICULAR STRAIN ABNORMAL ECG RI6.02 No previous ECG available for comparison
== END 2020-04-02 01:18 | disposition home or self-care (01) ==
LOC: ER 23:59
DX: I47.1 Supraventricular tachycardia (principal); R20.0 Anesthesia of skin; F17.200 Nicotine dependence, unspecified, uncomplicated; Z98.890 Other specified postprocedural states; Z90.89 Acquired absence of other organs
CPT/HCPCS: 93005; 99283; J0153

== ENCOUNTER 2020-04-12 04:02 | Emergency (ER) | payer SELFPAY ==
[~2020-04-12] VITALS: Ht 172.7 cm; Wt 63.6 kg
[~2020-04-12 04:02] MED LIST changes: -ADENOSINE 6 MG/2 ML VIAL. IV ONE
--- NOTE | 2020-04-12 04:13 | PHYS DOC ---
Past Medical History Past Medical History: Seizure, Other Additional Past Medical Histor: SVT Past Surgical History: Tonsillectomy Additional Past Surgical Histo: bone removed from foot, lumpectomy Smoking Status: Current Every Day Smoker Alcohol Use: None Drug Use: None General Adult EDM: Chief Complaint: RAPID HEART RATE HPI: HPI: Patient is a 59 year old female who presents with rapid heart rate that began 30 minutes prior to arrival. Patient has a long history of SVT and tried vagal maneuvers at home without success. Patient denies any chest pain but does have some mild shortness of breath. Patient denies any recent illnesses. No fever no cough no vomiting no diarrhea. Patient denies any alcohol or drug use. Heart rate was about 150 at home. And the palpitations are described as fast and regular Review of Systems: Review of Systems: Constitutional: Denies fever or chills. [] Eyes: Denies change in visual acuity. [] HENT: Denies nasal congestion or sore throat. [] Respiratory: Denies cough but does complain of shortness of breath Cardiovascular: Denies chest pain or edema. [] GI: Denies abdominal pain, nausea, vomiting, bloody stools or diarrhea. [] : Denies dysuria. [] Musculoskeletal: Denies back pain or joint pain. [] Integument: Denies rash. [] Neurologic: Denies headache, focal weakness or sensory changes. [] Endocrine: Denies polyuria or polydipsia. [] Lymphatic: Denies swollen glands. [] Psychiatric: Denies depression or anxiety. [] Heart Score: Risk Factors: Risk Factors: DM, Current or recent (<one month) smoker, HTN, HLP, family history of CAD, obesity. Risk Scores: Score 0 - 3: 2.5% MACE over next 6 weeks - Discharge Home Score 4 - 6: 20.3% MACE over next 6 weeks - Admit for Clinical Observation Score 7 - 10: 72.7% MACE over next 6 weeks - Early Invasive Strategies Allergies: Allergies: Allergies Coded Allergies Type Severity Reaction Last Updated Verified No Known Drug Allergies 02/08/14 No Physical Exam: PE: Constitutional: Well developed, well nourished, no acute distress, non-toxic appearance. [] HENT: Normocephalic, atraumatic, bilateral external ears normal, oropharynx moist, no oral exudates, nose normal. [] Eyes: PERRLA, EOMI, conjunctiva normal, no discharge. [] Neck: Normal range of motion, no tenderness, supple, no stridor. [] Cardiovascular: Tachycardia, peripheral pulses intact Lungs & Thorax: No respiratory distress Abdomen: Bowel sounds normal, soft, no tenderness, no masses, no pulsatile masses. [] Skin: Warm, dry, no erythema, no rash. [] Back: No tenderness, no CVA tenderness. [] Extremities: No tenderness, no cyanosis, no clubbing, ROM intact, no edema. [] Neurologic: Alert and oriented X 3, normal motor function, normal sensory function, no focal deficits noted. [] Psychologic: Affect normal, judgement normal, mood normal. [] EKG: EKG: [] EKG interpreted by me T with a rate of [address] changes Repeat EKG at 418 interpreted by me normal sinus rhythm with a rate of 100 normal axis normal intervals nonspecific ST changes Radiology/Procedures: Radiology/Procedures: [] Course & Med Decision Making: Course & Med Decision Making Pertinent Labs and Imaging studies reviewed. (See chart for details) [] Patient presented in SVT. Patient has long history of SVT. Patient converted with 6 mg adenosine. Due to patient's extensive history do not feel like a laboratory evaluation is warranted at this time. Patient has outpatient dog warden to follow-up with. Summer Disclaimer: Summer Disclaimer: This electronic medical record was generated, in whole or in part, using a voice recognition dictation system. Departure Departure Impression: Primary Impression: SVT (supraventricular tachycardia) Disposition: 01 HOME, SELF-CARE Condition: IMPROVED Referrals: Your dog warden Patient Instructions: Supraventricular Tachycardia Additional Instructions: EMERGENCY DEPARTMENT GENERAL DISCHARGE INSTRUCTIONS THANK YOU for coming to [facility] Emergency Department (ED) today and trusting us with your care. We trust that you had a positive experience in our Emergency Department. If you wish to speak to the department Management you can contact the supervisor wall mirror department at . YOUR FOLLOW UP INSTRUCTIONS ARE FOLLOWS: Do you have a private doctor? If you do not have a private doctor, please ask for a resource list of physicians or clinics that may be able to assist you with follow up care . The Emergency Physician has interpreted your x-rays. The X-ray specialist will also review them. If there is a change in the findings you will be notified in 48 hours when at all possible. A lab test or lab culture may have been done, your results will be reviewed and you will be notified if you need a change in treatment. ADDITIONAL INSTRUCTIONS AND INFORMATION Your care today has been supervised by a physician who is specially trained in emergency care. Many problems require more than one evaluation for a complete diagnosis and treatment. We recommend that you schedule your follow up appointment as recommended to ensure complete treatment of your illness or injury. If you are unable to obtain follow up care and continue to have a problem, or if your condition worsens we recommend that you return to the ED. We are not able to safely determine your condition over the phone nor are we able to give sound medical advice over the phone. For these safety reasons, if you call for medical advice we will ask you to come to the ED for further evaluation If you have any questions regarding these discharge instructions please call the ED at . SAFETY INFORMATION In the interest of safety, wellness, and injury prevention; we encourage you to wear your seatbelt, if you smoke; quit smoking, and we encourage your family to use protective helmet for bicycling and other sporting events that present an increased risk for head injury. IF YOUR SYMPTOMS WORSEN OR NEW SYMPTOMS DEVELOP, OR YOU HAVE CONCERNS ABOUT YOUR CONDITION; OR IF YOUR CONDITION WORSENS WHILE YOU ARE WAITING FOR YOUR FOLLOW UP APPOINTMENT; EITHER CONTACT YOUR PRIMARY CARE DOCTOR, THE PHYSICIAN WHOSE NAME AND NUMBER YOU WERE GIVEN, OR RETURN TO THE ED IMMEDIATELY. Justicifation of Admission Dx: Justifications for Admission: Justification of Admission Dx: No MANUEL GRESHAM MD Apr 12, 2020 04:13
[2020-04-12] MEDS ORDERED: ADENOSINE 6 MG/2 ML VIAL. IV ONE (04:30)
[2020-04-12 05:00] VITALS: BP 131/82
--- NOTE | 2020-04-15 04:45 | EKG ---
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
--- NOTE | 2020-04-15 04:47 | EKG ---
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
== END 2020-04-12 05:06 | disposition home or self-care (01) ==
LOC: ER 04:02
DX: I47.1 Supraventricular tachycardia (principal); F17.200 Nicotine dependence, unspecified, uncomplicated
CPT/HCPCS: 93005; 96374; 99283; J0153; 99284

== ENCOUNTER 2020-04-25 17:21 | Emergency (ER) | payer SELFPAY ==
[~2020-04-25] VITALS: Ht 172.7 cm; Wt 63.2 kg
[2020-04-25 17:21] VITALS: BP 102/82
[2020-04-25] MEDS ORDERED: ADENOSINE 6 MG/2 ML VIAL. IV ONE ×2 (17:24→17:30)
--- NOTE | 2020-04-25 17:41 | PHYS DOC ---
Past Medical History Past Medical History: Seizure, Other Additional Past Medical Histor: SVT Past Surgical History: Tonsillectomy Additional Past Surgical Histo: bone removed from foot, lumpectomy Smoking Status: Former Smoker Alcohol Use: None Drug Use: None General Adult EDM: Chief Complaint: RAPID HEART RATE HPI: HPI: Patient is a 59 year old female well known to our facility presents in SVT. No known onset, nothing known makes better or worse.Reports vague chest pressure, 4/10 and rapid palpitations that cause her to feel fatigued. She has been trying vagal maneuvers for past 30mins prior to arrival without relief. She has 10+ visit since start 2019 with identical presentations. She reports history of frequent SVT that ultimately requires ablation; however, she cannot afford it at present as she does not have insurance. She is presenting today for 6mg adenosine. She is refusing labs and/or admission which is typical to previous ED courses Review of Systems: Review of Systems: Fourteen system , review of systems has been reviewed. See HPI for pertinent positives and negative responses, other muñoz all other systems are negative, non pertinent or non contributory Heart Score: Risk Factors: Risk Factors: DM, Current or recent (<one month) smoker, HTN, HLP, family history of CAD, obesity. Risk Scores: Score 0 - 3: 2.5% MACE over next 6 weeks - Discharge Home Score 4 - 6: 20.3% MACE over next 6 weeks - Admit for Clinical Observation Score 7 - 10: 72.7% MACE over next 6 weeks - Early Invasive Strategies Current Medications: Current Medications Medications (Trade) Dose Ordered Sig/[facility] Start Time Stop Time Status Last Admin Dose Admin Adenosine (Adenocard) 6 mg 1X ONCE 04/25/20 17:30 04/25/20 17:32 DC Allergies: Allergies: Allergies Coded Allergies Type Severity Reaction Last Updated Verified No Known Drug Allergies 02/08/14 No Physical Exam: PE: Constitutional: Well developed, well nourished, no acute distress, non-toxic appearance. [] HENT: Normocephalic, atraumatic, bilateral external ears normal, oropharynx moist, no oral exudates, nose normal. [] Eyes: PERRLA, EOMI, conjunctiva normal, no discharge. [] Neck: Normal range of motion, no tenderness, supple, no stridor. [] Cardiovascular:Heart rate regular rhythm, no murmur [] Lungs & Thorax: Bilateral breath sounds clear to auscultation [] Abdomen: Bowel sounds normal, soft, no tenderness, no masses, no pulsatile enmaneul s. [] Skin: Warm, dry, no erythema, no rash. [] Back: No tenderness, no CVA tenderness. [] Extremities: No tenderness, no cyanosis, no clubbing, ROM intact, no edema. [] Neurologic: Alert and oriented X 3, normal motor function, normal sensory function, no focal deficits noted. [] Psychologic: Affect normal, judgement normal, mood normal. [] EKG: EKG: EKG ordered and interpreted by myself at 1732 hrs. as supraventricular tachycardia at 161 bpm, narrow complex QRS with unremarkable intervals, no axis deviation, no acute ischemic changes or findings consistent with acute STEMI Repeat EKG obtained after 6 mg of adenosine ordered and interpreted by myself at 1739 hrs as supraventricular tachycardia at 119 bpm, narrow complex QRS with unremarkable intervals, no acute ischemic changes or findings consistent with acute STEMI Additional EKG obtained 11 minutes after adenosine push, interpreted by myself at 1751 hrs. as normal sinus rhythm at 96 bpm, unremarkable intervals, no ischemic changes, no STEMI Radiology/Procedures: Radiology/Procedures: [] Course & Med Decision Making: Course & Med Decision Making Patient confirmed to be in SVT on arrival Decision made to administer 6mg Adenosine with good result, resolution of patient's SVT Discussed need for observation in hospital and more thorough workup but patient declined due to fear of cost Discussed need to follow-up with outpatient community health advisor to talk definitive management via ablation and pricing program Case discussed at length and patient still wanting discharge home. Patient with full capacity signed AMA Summer Disclaimer: Summer Disclaimer: This electronic medical record was generated, in whole or in part, using a voice recognition dictation system. Departure Departure Impression: Primary Impression: SVT (supraventricular tachycardia) Disposition: 07 AGAINST MEDICAL ADVICE (Recommended patient be admitted for further work-up and consideration for ablation given recurrent episodes, patient signed AMA sheet prior to discharge) Condition: IMPROVED Referrals: NO PCP (PCP) Patient Instructions: Supraventricular Tachycardia Additional Instructions: As discussed prior to ED departure, please call your primary care physician to follow-up in upcoming 3 to 7 days Also, as discussed, please follow-up with your established community health advisor in outpatient setting. I recommend he discuss talking about definitive cardio ablation and given the circumstances, talked about an advanced payment plan Justicifation of Admission Dx: Justifications for Admission: Justification of Admission Dx: No STEPHANIE SLOAN DO Apr 25, 2020 17:41
--- NOTE | 2020-04-28 15:09 | EKG ---
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
--- NOTE | 2020-04-28 15:47 | EKG ---
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
== END 2020-04-25 18:20 | disposition left against medical advice (07) ==
LOC: ER 17:21
DX: I47.1 Supraventricular tachycardia (principal); R07.89 Other chest pain; Z87.891 Personal history of nicotine dependence
CPT/HCPCS: 96374; 99283; J0153; 93005

== ENCOUNTER 2020-06-05 20:27 | Emergency (ER) | payer SELFPAY ==
[~2020-06-05] VITALS: Ht 172.7 cm; Wt 63.0 kg
[2020-06-05] MEDS ORDERED: ADENOSINE 6 MG/2 ML VIAL. IV ONE ×2 (20:40→21:45)
--- NOTE | 2020-06-05 21:06 | PHYS DOC ---
Past Medical History Past Medical History: Seizure, Other Additional Past Medical Histor: SVT Past Surgical History: Tonsillectomy Additional Past Surgical Histo: bone removed from foot, lumpectomy Smoking Status: Former Smoker Alcohol Use: None Drug Use: None General Adult EDM: Chief Complaint: RAPID HEART RATE HPI: HPI: The history was obtained from the patient. Patient is a 60-year-old female with PMH supraventricular tachycardia who presents with a chief complaint of rapid heart rate. Patient states just prior to arrival she developed sudden onset rapid heart rate. She states this is happened multiple times in the past and is cured with adenosine. She states he has a follow-up appoint with cardiology November at [facility] for potential ablation. She does note some mild shortness of breath. Denies chest pain. Denies syncope. Denies alcohol or caffeine usage today. States she does not have any particular triggers. No other complaints. Review of Systems: Review of Systems: Constitutional: Denies fever or chills. [] Eyes: Denies change in visual acuity. [] HENT: Denies nasal congestion or sore throat. [] Respiratory: Denies cough or shortness of breath. [] Cardiovascular: Positive for palpitations GI: Denies abdominal pain, nausea, vomiting, bloody stools or diarrhea. [] : Denies dysuria. [] Musculoskeletal: Denies back pain or joint pain. [] Integument: Denies rash. [] Neurologic: Denies headache, focal weakness or sensory changes. [] Endocrine: Denies polyuria or polydipsia. [] Lymphatic: Denies swollen glands. [] Psychiatric: Denies depression or anxiety. [] Heart Score: Risk Factors: Risk Factors: DM, Current or recent (<one month) smoker, HTN, HLP, family history of CAD, obesity. Risk Scores: Score 0 - 3: 2.5% MACE over next 6 weeks - Discharge Home Score 4 - 6: 20.3% MACE over next 6 weeks - Admit for Clinical Observation Score 7 - 10: 72.7% MACE over next 6 weeks - Early Invasive Strategies Current Medications: Current Medications Medications (Trade) Dose Ordered Sig/Rohith Start Time Stop Time Status Last Admin Dose Admin Adenosine (Adenocard) 6 mg STK-MED ONCE 06/05/20 20:40 06/05/20 20:41 DC Allergies: Allergies: Allergies Coded Allergies Type Severity Reaction Last Updated Verified No Known Drug Allergies 02/08/14 No Physical Exam: PE: Constitutional: Well developed, well nourished, no acute distress, non-toxic appearance. [] HENT: Normocephalic, atraumatic, bilateral external ears normal, oropharynx moist, no oral exudates, nose normal. [] Eyes: PERRLA, EOMI, conjunctiva normal, no discharge. [] Neck: Normal range of motion, no tenderness, supple, no stridor. [] Cardiovascular: Tachycardic, regular, no murmurs rubs or gallops noted. Lungs & Thorax: Bilateral breath sounds clear to auscultation [] Abdomen: Bowel sounds normal, soft, no tenderness, no masses, no pulsatile masses. [] Skin: Warm, dry, no erythema, no rash. [] Back: No tenderness, no CVA tenderness. [] Extremities: No tenderness, no cyanosis, no clubbing, ROM intact, no edema. [] Neurologic: Alert and oriented X 3, normal motor function, normal sensory function, no focal deficits noted. [] Psychologic: Affect normal, judgement normal, mood normal. [] Current Patient Data: Vital Signs: Vital Signs Date Time Temp Pulse Resp B/P (MAP) Pulse Ox O2 Delivery O2 Flow Rate FiO2 06/05/20 20:45 98.9 167 18 96/68 (77) 100 Room Air 98.9 EKG: EKG: EKG1: EKG consistent with supraventricular tachycardia. Ventricular rate is 165 bpm. [place] normal. Intervals normal. No acute ischemic changes noted. Slight ST depression noted in the lateral precordial leads. EKG2: EKG consistent with sinus tachycardia. Ventricular rate of 123 bpm. [place] normal. Intervals normal. No acute ischemic changes noted. EKG3: EKG consistent with normal sinus rhythm. Ventricular rate of 91 bpm. [place] normal. Intervals normal. No acute ischemic changes noted. Radiology/Procedures: Radiology/Procedures: [] Course & Med Decision Making: Course & Med Decision Making Pertinent Labs and Imaging studies reviewed. (See chart for details) Patient is a 60-year-old female presents with chief complaint of acute onset rapid heart rate. Initial EKG consistent with supraventricular tachycardia. Valsalva as well as modified Valsalva maneuvers were attempted without conversion. She was given 6 mg of IV adenosine and converted to normal sinus rhythm. She was monitored in the emergency department. She states that this happened so many times that she is declining lab work. Overall I do feel this is reasonable. She states she does have follow-up with cardiology at [facility] for potential ablation. She showed no signs of increased heart rate or hemodynamic instability while monitored in the emergency department. She remains asymptomatic. Return precautions discussed and understood. Stable for discharge home. Dragon Disclaimer: Dragon Disclaimer: This electronic medical record was generated, in whole or in part, using a voice recognition dictation system. Departure Departure Impression: Primary Impression: SVT (supraventricular tachycardia) Disposition: 01 HOME, SELF-CARE Condition: STABLE Referrals: NON,STAFF (PCP) Patient Instructions: Supraventricular Tachycardia Additional Instructions: Please follow-up with your strategic development manager in the next 2 to 3 days as well as your primary care physician. Justicifation of Admission Dx: Justifications for Admission: Justification of Admission Dx: N/A ANGIE CABRERA DO Jun 05, 2020 21:06
[2020-06-05 21:48] VITALS: BP 122/71
== END 2020-06-05 21:50 | disposition home or self-care (01) ==
LOC: ER 20:27
DX: I47.1 Supraventricular tachycardia (principal); R06.02 Shortness of breath; Z87.891 Personal history of nicotine dependence
CPT/HCPCS: 96374; 99283; J0153

== ENCOUNTER 2020-07-20 23:48 | Emergency (ER) | payer SELFPAY ==
[~2020-07-20] VITALS: Ht 172.7 cm; Wt 64.0 kg
--- NOTE | 2020-07-21 00:18 | PHYS DOC ---
Past Medical History Past Medical History: Seizure, Other Additional Past Medical Histor: SVT Past Surgical History: Tonsillectomy Additional Past Surgical Histo: bone removed from foot, lumpectomy Smoking Status: Former Smoker Alcohol Use: None Drug Use: None General Adult EDM: Chief Complaint: CHEST PAIN-CARDIAC NATURE HPI: HPI: Patient is a 60 year old female with past medical history SVT presents with a chief complaint of SVT. Patient states palpitations started approximately 15 minutes prior to arrival. Patient states she has some mild chest discomfort with some shortness of breath. She states the symptoms are typical of her SVT episodes. EKG performed shows SVT with heart rate of 154. Patient is requesting treatment with adenosine and no labs. Patient was treated with 6 mg adenosine with improvement and return of sinus rhythm. Post treatment patient EKG at 00 15 hours shows a heart rate of 94 and a sinus rhythm. She states chest discomfort and shortness of breath have resolved. Review of Systems: Review of Systems: Constitutional: Denies fever or chills. [] Eyes: Denies change in visual acuity. [] HENT: Denies nasal congestion or sore throat. [] Respiratory: Positive shortness of breath Cardiovascular: As it of chest pain positive palpitations GI: Denies abdominal pain, nausea, vomiting, bloody stools or diarrhea. [] : Denies dysuria. [] Musculoskeletal: Denies back pain or joint pain. [] Integument: Denies rash. [] Neurologic: Denies headache, focal weakness or sensory changes. [] Endocrine: Denies polyuria or polydipsia. [] Lymphatic: Denies swollen glands. [] Psychiatric: Denies depression or anxiety. [] Heart Score: Risk Factors: Risk Factors: DM, Current or recent (<one month) smoker, HTN, HLP, family history of CAD, obesity. Risk Scores: Score 0 - 3: 2.5% MACE over next 6 weeks - Discharge Home Score 4 - 6: 20.3% MACE over next 6 weeks - Admit for Clinical Observation Score 7 - 10: 72.7% MACE over next 6 weeks - Early Invasive Strategies Current Medications: Current Medications Medications (Trade) Dose Ordered Sig/Rohith Start Time Stop Time Status Last Admin Dose Admin Adenosine (Adenocard) 6 mg 1X ONCE 07/21/20 00:30 07/21/20 00:31 07/21/20 00:10 6 MG Sodium Chloride 1,000 ml @ 1,000 mls/hr 1X ONCE 07/21/20 00:30 07/21/20 01:29 Allergies: Allergies: Allergies Coded Allergies Type Severity Reaction Last Updated Verified No Known Drug Allergies 02/08/14 No Physical Exam: PE: Constitutional: Well developed, well nourished, no acute distress, non-toxic appearance. [] HENT: Normocephalic, atraumatic, bilateral external ears normal, oropharynx moist, no oral exudates, nose normal. [] Eyes: PERRLA, EOMI, conjunctiva normal, no discharge. [] Neck: Normal range of motion, no tenderness, supple, no stridor. [] Cardiovascular: Tachycardia Lungs & Thorax: Bilateral breath sounds clear to auscultation [] Abdomen: Bowel sounds normal, soft, no tenderness, no masses, no pulsatile masses. [] Skin: Warm, dry, no erythema, no rash. [] Back: No tenderness, no CVA tenderness. [] Extremities: No tenderness, no cyanosis, no clubbing, ROM intact, no edema. [] Neurologic: Alert and oriented X 3, normal motor function, normal sensory function, no focal deficits noted. [] Psychologic: Affect normal, judgement normal, mood normal. [] EKG: EKG: [] Radiology/Procedures: Radiology/Procedures: [] Course & Med Decision Making: Course & Med Decision Making Pertinent Labs and Imaging studies reviewed. (See chart for details) [] Dragon Disclaimer: Dragon Disclaimer: This electronic medical record was generated, in whole or in part, using a voice recognition dictation system. Departure Departure Impression: Primary Impression: SVT (supraventricular tachycardia) Disposition: 01 DC HOME SELF CARE/HOMELESS Condition: STABLE Referrals: NO PCP (PCP) Patient Instructions: Supraventricular Tachycardia PRUDENCE VAUGHN DO Jul 21, 2020 00:18
[2020-07-21 00:29] VITALS: BP 134/69
[2020-07-21] MEDS ORDERED: IV NORMAL SALINE 1000ML BAG 1,000 ML IV ONE ×2 (00:30→01:00)
[2020-07-21] MEDS ORDERED: ADENOSINE 6 MG/2 ML VIAL. IV ONE (00:30)
--- NOTE | 2020-07-22 09:10 | EKG ---
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
--- NOTE | 2020-07-22 10:04 | EKG ---
[facility] [address] [place] [address] Test Date: 2020-07-21 Test Time: 00:15:05 Pat Name: MURALI ALBA Department: Room: Gender: F Classified Advertising Manager: : 1960 Requested By: PRUDENCE VAUGHN Order Number: [id number] Reading MD: Measurements Intervals [place] Rate: 94 P: 16 MO: 176 QRS: 71 QRSD: 86 T: 58 QT: 358 QTc: 448 Interpretive Statements SINUS RHYTHM NORMAL ECG RI6.02 Compared to ECG 07/21/2020 00:13:17 No significant changes
== END 2020-07-21 00:53 | disposition home or self-care (01) ==
LOC: ER 23:48
DX: I47.1 Supraventricular tachycardia (principal); Z87.891 Personal history of nicotine dependence
CPT/HCPCS: 93005; 96361; 96374; 99283; J0153; J7030

== ENCOUNTER 2020-08-05 00:54 | Emergency (ER) | payer SELFPAY ==
[~2020-08-05] VITALS: Ht 172.7 cm; Wt 54.5 kg
[2020-08-05] MEDS ORDERED: ADENOSINE 6 MG/2 ML VIAL. IV ONE ×2 (01:03→02:00)
[2020-08-05 01:45] VITALS: BP 131/77
--- NOTE | 2020-08-05 04:14 | PHYS DOC ---
Past Medical History Past Medical History: Other Additional Past Medical Histor: SVT Past Surgical History: No Surgical History Additional Past Surgical Histo: bone removed from foot, lumpectomy Smoking Status: Current Every Day Smoker Alcohol Use: None Drug Use: None General Adult EDM: Chief Complaint: RAPID HEART RATE HPI: HPI: 60-year-old female past medical history significant for SVT presents to the ED with complaints of palpitations and "it's my SVT again," that started 2 hours prior to arrival while driving to . Pt on a medication for this (cannot recall name), no recent changes. States she has no insurance and has not been able to have a cardiac ablation. Patient well-known to charge nurse who states patient frequently responded to adenosine 6 mg-charge nurse says pt was here 2 weeks ago. Patient denies any recent fever, chills, nausea, vomiting, diarrhea, dysuria, hematuria, cough, sore throat, chest pressure, dyspnea, syncope or any signs of infection Review of Systems: Review of Systems: Constitutional: Denies fever or chills. [] Eyes: Denies change in visual acuity. [] HENT: Denies nasal congestion or sore throat. [] Respiratory: Denies cough or shortness of breath. [] Cardiovascular: Denies chest pain or edema or syncope GI: Denies abdominal pain, nausea, vomiting, bloody stools or diarrhea. [] : Denies dysuria. [] Musculoskeletal: Denies back pain or joint pain. [] Integument: Denies rash. [] Neurologic: Denies headache, focal weakness or sensory changes. [] Endocrine: Denies polyuria or polydipsia. [] Lymphatic: Denies swollen glands. [] Psychiatric: Denies depression or anxiety. [] Heart Score: Risk Factors: Risk Factors: DM, Current or recent (<one month) smoker, HTN, HLP, family history of CAD, obesity. Risk Scores: Score 0 - 3: 2.5% MACE over next 6 weeks - Discharge Home Score 4 - 6: 20.3% MACE over next 6 weeks - Admit for Clinical Observation Score 7 - 10: 72.7% MACE over next 6 weeks - Early Invasive Strategies Current Medications: Current Medications Medications (Trade) Dose Ordered Sig/Rohith Start Time Stop Time Status Last Admin Dose Admin Adenosine (Adenocard) 6 mg 1X ONCE 08/05/20 02:00 08/05/20 02:01 DC 08/05/20 01:09 6 MG Allergies: Allergies: Allergies Coded Allergies Type Severity Reaction Last Updated Verified No Known Drug Allergies 02/08/14 No Physical Exam: PE: Constitutional: Well developed, well nourished, no acute distress, non-toxic appearance. [] HENT: Normocephalic, atraumatic, Eyes: EOMI, conjunctiva normal, no discharge. [] Neck: Normal range of motion, supple, = Cardiovascular: Tachycardic, no murmur Lungs & Thorax: Bilateral equal chest rise, speaking in full sentences Abdomen: soft, no tenderness, Skin: Warm, dry, no erythema, no rash. [] Extremities: No tenderness, no edema. [] Neurologic: Alert and oriented X 3, normal motor function, normal sensory function, no focal deficits noted. [] Psychologic: Affect normal, judgement normal, mood normal. [] Current Patient Data: Vital Signs: Vital Signs Date Time Temp Pulse Resp B/P (MAP) Pulse Ox O2 Delivery O2 Flow Rate FiO2 08/05/20 01:01 98.3 167 22 157/74 (101) 97 Room Air 98.3 EKG: EKG: Supraventricular tachycardia 165 bpm, no axis deviation, no appreciable ST elevations After adenosine was given EKG shows sinus tachycardia at 113 bpm, no axis deviation, normal intervals, no T wave inversions, no ST elevations or ST depressions Patient observed in ED, no abnormal events on youth nutritional monitor, final EKG showed sinus rhythm 83 bpm, no axis deviation, normal intervals, no T wave inversions, no ST elevations or ST depressions Radiology/Procedures: Radiology/Procedures: [] Course & Med Decision Making: Course & Med Decision Making Pertinent Labs and Imaging studies reviewed. (See chart for details) Concern for SVT, no success with modified positional Valsalva. Patient with medical decision-making capacity is also here with her . Patient refuses any lab work or chest x-ray or infectious work-up. I do suspect due to lack of insurance patient is not compliant with any medical management regarding her SVT. Patient observed for prolonged period in ED and patient's heart rate returned to sinus rhythm. Strict ED return precautions were given for chest pain, shortness of breath, syncope, confusion or altered mental status. Encouraged urgent outpatient follow-up with PMD and cardiology. Life- threatening processes were considered but are low suspicion at this time, given history and physical exam. Pt was educated on all prescription medications and adverse effects. All patient's questions were answered and pt was stable at time of discharge. Life/limb-threatening differential includes but is not limited to, acute myocardial infarction, aortic dissection, congestive heart failure, esophageal injury including rupture, surgical abdomen, arrhythmia, cardiomyopathy, myocarditis, pericarditis, peptic ulcer disease, pneumomediastinum, pneumonia, pneumothorax, pulmonary embolus, unstable angina, rib fracture, contusion, pericardial tamponade or effusion, pulmonary contusion I spoken with the patient and her caregivers. I explained the patient's condition, diagnoses and treatment plan based on the information available to me at this time. I have answered the patient and her caregiver's questions and addressed any concerns. The patient and her caregivers have a good understanding of patient's diagnosis, condition and treatment plan as can be expected at this point. Vital signs have been stable. Patient's condition is stable and appropriate for discharge from the emergency department. Patient will pursue further outpatient evaluation with primary care physician or other designated or consulting physician as outlined in the discharge inst ructions. The patient and/or caregivers are agreeable to this plan of care and follow-up instructions have been explained in detail. The patient and/or caregivers have received these instructions in written form and have expressed an understanding of the discharge instructions. The patient and/or caregivers are aware that any significant change of condition or worsening of symptoms should prompt immediate return to this or the closest emergency department or call to 911. Summer Disclaimer: Summer Disclaimer: This electronic medical record was generated, in whole or in part, using a voice recognition dictation system. Departure Departure Impression: Primary Impression: SVT (supraventricular tachycardia) Disposition: 01 DC HOME SELF CARE/HOMELESS Condition: STABLE Referrals: NO PCP (PCP) FOLLOW UP WITH FAMILY MEDICINE: Family Medicine Address: [address] [facility] [facility] [address] [place] [address] Patient Instructions: Supraventricular Tachycardia Additional Instructions: FOLLOW UP WITH CARDIOLOGY: [facility] Address: [address] [facility] [address] [place] [address] EMERGENCY DEPARTMENT GENERAL DISCHARGE INSTRUCTIONS Thank you for coming to [facility] (ED) today and trusting us with you care. We trust that you had a positive experience in our Emergency Department. If you wish to speak to the department management, you may call the Director at [phone]. YOUR FOLLOW UP INSTRUCTIONS ARE FOLLOWS: 1. Do you have a private Doctor? If you do not have a private doctor, please ask for a resource list of physicians or clinics that may be able to assist you with follow up care. 2. The Emergency Physicain has interpreted your x-rays. The X-Ray specialist will also review them. If there is a change in the findings, you will be notified in 48 hours when at all possible. 3. A lab test or culture has been done, your results will be reviewed and you will be notified if you need a change in treatment. ADDITIONAL INSTRUCTIONS AND INFORMATION: 1. Your care today has been supervised by a physician who is specially trained in emergency care. Many problems require more than one evaluation for a complete diagnosis and treatment. We recommend that you schedule your follow up appointment as recommended to ensure complete treatment of you illness or injury. If you are unable to obtain follow up care and continue to have a problem, or if your condition worsens, we recommend that you return to the ED. 2. We are not able to safely determine your condition over the phone nor are we able to give sound medical advice over the phone. For these safety reasons, if you call for medical advice we will ask you to come to the ED for further evaluation. 3. If you have any questions regarding these discharge instructions please call the ED at [phone]. SAFETY INFORMATION: In the interest of safety, wellness, and injury prevention; we encourage you to wear your sealbelt, if you smoke; quite smoking, and we encourage family to use a pro tective helmet for bicycling and other sporting events that present an increased risk for head injury. IF YOUR SYMPTOMS WORSEN OR NEW SYMPTOMS DEVELOP, OR YOU HAVE CONCERNS ABOUT YOUR CONDITION; OR IF YOUR CONDITION WORSENS WHILE YOU ARE WAITING FOR YOUR FOLLOW UP APPOINTMENT; EITHER CONTACT YOUR PRIMARY CARE DOCTOR, THE PHYSICIAN WHOSE NAME AND NUMBER YOU WERE GIVEN, OR RETURN TO THE ED IMMEDIATELY. [facility] Aug 05, 2020 04:14
--- NOTE | 2020-08-05 07:29 | EKG ---
[facility] [address] [place] [address] Test Date: 2020-08-05 Test Time: 03:19:08 Pat Name: MURALI ALBA Department: Room: Gender: F Chief Risk Officer: : 1960 Requested By: ESTEPHANIA DONIS Order Number: [id number] Reading MD: Measurements Intervals [place] Rate: 83 P: 53 NC: 152 QRS: 73 QRSD: 86 T: 62 QT: 372 QTc: 443 Interpretive Statements SINUS RHYTHM NORMAL ECG RI6.02 Compared to ECG 08/05/2020 01:15:12 Sinus tachycardia no longer present
--- NOTE | 2020-08-07 08:38 | EKG ---
[facility] [address] [place] [address] Test Date: 2020-08-05 Test Time: 01:15:12 Pat Name: MURALI LABA Department: Room: Gender: F Transitional Care Nurse: : 1960 Requested By: ESTEPHANIA DONIS Order Number: [id number] Reading MD: Measurements Intervals [place] Rate: 113 P: 41 [place]: 160 QRS: 75 QRSD: 84 T: 70 QT: 320 QTc: 444 Interpretive Statements SINUS TACHYCARDIA NO SPECIFIC ECG ABNORMALITIES RI6.02 Compared to ECG 07/21/2020 00:15:05 Sinus rhythm no longer present
== END 2020-08-05 04:34 | disposition home or self-care (01) ==
LOC: ER 00:54
DX: I47.1 Supraventricular tachycardia (principal); F17.200 Nicotine dependence, unspecified, uncomplicated
CPT/HCPCS: 93005; 96374; 99283; J0153

== ENCOUNTER 2020-09-27 03:27 | Emergency (ER) | payer SELFPAY ==
[~2020-09-27] VITALS: Ht 170.2 cm; Wt 67.7 kg
--- NOTE | 2020-09-27 03:48 | PHYS DOC ---
Past Medical History Past Medical History: Other Additional Past Medical Histor: SVT Past Surgical History: No Surgical History Additional Past Surgical Histo: bone removed from foot, lumpectomy Smoking Status: Current Every Day Smoker Alcohol Use: None Drug Use: None General Adult EDM: Chief Complaint: Palpitations HPI: HPI: Patient is a 60 year old [f__sex] who presents with [] Review of Systems: Review of Systems: Constitutional: Denies fever or chills. [] Eyes: Denies change in visual acuity. [] HENT: Denies nasal congestion or sore throat. [] Respiratory: Denies cough or shortness of breath. [] Cardiovascular: Denies chest pain or edema. [] GI: Denies abdominal pain, nausea, vomiting, bloody stools or diarrhea. [] : Denies dysuria. [] Musculoskeletal: Denies back pain or joint pain. [] Integument: Denies rash. [] Neurologic: Denies headache, focal weakness or sensory changes. [] Endocrine: Denies polyuria or polydipsia. [] Lymphatic: Denies swollen glands. [] Psychiatric: Denies depression or anxiety. [] Heart Score: Risk Factors: Risk Factors: DM, Current or recent (<one month) smoker, HTN, HLP, family history of CAD, obesity. Risk Scores: Score 0 - 3: 2.5% MACE over next 6 weeks - Discharge Home Score 4 - 6: 20.3% MACE over next 6 weeks - Admit for Clinical Observation Score 7 - 10: 72.7% MACE over next 6 weeks - Early Invasive Strategies Current Medications: Current Medications Medications (Trade) Dose Ordered Sig/[facility] Start Time Stop Time Status Last Admin Dose Admin Adenosine (Adenocard) 6 mg 1X ONCE 09/27/20 04:00 09/27/20 04:01 Aspirin (Yovani Aspirin) 325 mg 1X ONCE 09/27/20 04:00 09/27/20 04:01 Sodium Chloride 1,000 ml @ 1,000 mls/hr 1X ONCE 09/27/20 04:00 09/27/20 04:59 Allergies: Allergies: Allergies Coded Allergies Type Severity Reaction Last Updated Verified No Known Drug Allergies 02/08/14 No Physical Exam: PE: Constitutional: Well developed, well nourished, no acute distress, non-toxic appearance. [] HENT: Normocephalic, atraumatic, bilateral external ears normal, oropharynx moist, no oral exudates, nose normal. [] Eyes: PERRLA, EOMI, conjunctiva normal, no discharge. [] Neck: Normal range of motion, no tenderness, supple, no stridor. [] Cardiovascular:Heart rate regular rhythm, no murmur [] Lungs & Thorax: Bilateral breath sounds clear to auscultation [] Abdomen: Bowel sounds normal, soft, no tenderness, no masses, no pulsatile masses. [] Skin: Warm, dry, no erythema, no rash. [] Back: No tenderness, no CVA tenderness. [] Extremities: No tenderness, no cyanosis, no clubbing, ROM intact, no edema. [] Neurologic: Alert and oriented X 3, normal motor function, normal sensory function, no focal deficits noted. [] Psychologic: Affect normal, judgement normal, mood normal. [] EKG: EKG: @0336 SVT at 163bpm, NO ST elevation, QRS 90ms, QT/QTc 284/473ms, ST depression V3-V6 @0401 NSR at 92bpm, NO ST elevation, QRS 88ms, QT/QTc 368/460ms Radiology/Procedures: Radiology/Procedures: [] Course & Med Decision Making: Course & Med Decision Making Pertinent Labs and Imaging studies reviewed. (See chart for details) [] Dragon Disclaimer: Dragon Disclaimer: This electronic medical record was generated, in whole or in part, using a voice recognition dictation system. Departure Departure Impression: Primary Impression: SVT (supraventricular tachycardia) Disposition: 01 DC HOME SELF CARE/HOMELESS Condition: IMPROVED Referrals: NO PCP (PCP) MEÑO MAURICIO MD Patient Instructions: Supraventricular Tachycardia, [id number] Additional Instructions: Please follow with cardiology for cardiac ablasion. SHANNON RAYA DO Sep 27, 2020 03:48
[2020-09-27] MEDS ORDERED: IV NORMAL SALINE 1000ML BAG 1,000 ML IV ONE (04:00)
[2020-09-27] MEDS ORDERED: ADENOSINE 6 MG/2 ML VIAL. IV ONE (04:00)
[2020-09-27] MEDS ORDERED: ASPIRIN 325 MG TABLET PO ONE (04:00)
[2020-09-27 04:30] VITALS: BP 115/72
--- NOTE | 2020-09-28 07:47 | EKG ---
[facility] [address] [place] [address] Test Date: 2020-09-27 Test Time: 03:36:24 Pat Name: MURALI ALBA Department: Room: Gender: F Skeiner: : 1960 Requested By: SHANNON RAYA Order Number: [id number] Reading MD: Measurements Intervals [place] Rate: 163 P: DC: QRS: 54 QRSD: 90 T: -77 QT: 284 QTc: 473 Interpretive Statements SUPRAVENTRICULAR TACHYCARDIA ST ABNORMALITY, POSSIBLE INFERIOR SUBENDOCARDIAL INJURY ABNORMAL ECG RI6.02 No previous ECG available for comparison
== END 2020-09-27 04:32 | disposition home or self-care (01) ==
LOC: ER 03:27
DX: I47.1 Supraventricular tachycardia (principal); F17.200 Nicotine dependence, unspecified, uncomplicated
CPT/HCPCS: 93005; 96374; 99285; J0153; J7030

== ENCOUNTER 2020-10-14 00:02 | Emergency (ER) | payer OTHER ==
[~2020-10-14] VITALS: Ht 172.7 cm; Wt 68.0 kg
[2020-10-14] MEDS ORDERED: ADENOSINE 6 MG/2 ML VIAL. IV ONE ×2 (00:10→00:15)
[2020-10-14] MEDS ORDERED: IV NORMAL SALINE 1000ML BAG 1,000 ML IV ONE (00:30)
[2020-10-14 00:34] LABS: BASO % 0 % (0-3); EOS # 0.1 x10^3/uL (0.0-0.7); EOS % 1 % (0-3); HEMATOCRIT 45.7 % (36.0-47.0); HEMOGLOBIN 15.6 g/dL (12.0-15.5); LYMPH # 3.4 x10^3/uL (1.0-4.8); LYMPH % 36 % (24-48); MEAN CORPUSCULAR HEMOGLOBIN 29 pg (25-35); MEAN CORPUSCULAR HGB CONC 34 g/dL (31-37); MEAN CORPUSCULAR VOLUME 84 fL (79-100); MONO # 0.7 x10^3/uL (0.0-1.1); MONO % 7 % (0-9); NEUT # 5.2 x10^3/uL (1.8-7.7); NEUT % 55 % (31-73); PLATELET COUNT 260 x10^3/uL (140-400); RED BLOOD COUNT 5.45 x10^6/uL (3.50-5.40); RED CELL DISTRIBUTION WIDTH 14.5 % (11.5-14.5); WHITE BLOOD COUNT 9.4 x10^3/uL (4.0-11.0)
[2020-10-14 00:44] LABS: CALCIUM 8.8 mg/dL (8.5-10.1); GFR 56.9; POTASSIUM 4.1 mmol/L (3.5-5.1)
[2020-10-14 00:50] LABS: ALBUMIN 3.6 g/dL (3.4-5.0); MAGNESIUM 2.1 mg/dL (1.8-2.4); TOTAL BILIRUBIN 0.6 mg/dL (0.2-1.0); TOTAL PROTEIN 7.3 g/dL (6.4-8.2)
--- NOTE | 2020-10-14 00:53 | PHYS DOC ---
Past Medical History Past Medical History: Other Additional Past Medical Histor: SVT Past Surgical History: No Surgical History Additional Past Surgical Histo: bone removed from foot, lumpectomy Smoking Status: Current Every Day Smoker Alcohol Use: None Drug Use: None General Adult EDM: Chief Complaint: Palpitations HPI: HPI: 60-year-old female past medical history of known SVT, presents to the ED with complaints of palpitations reporting "it's my SVT." She is well-known to this emergency department needing adenosine once and being discharged. I saw patient in July. Patient has had 12 ED visits since February when her last labs were drawn. Denies any drug use including cocaine or methamphetamines, no associated syncope, or known thyroid disease. No recent vomiting or diarrhea or fluid losses. Review of Systems: Review of Systems: Constitutional: Denies fever or chills. [] Eyes: Denies change in visual acuity. [] HENT: Denies nasal congestion or sore throat. [] Respiratory: Denies cough or shortness of breath. [] Cardiovascular: Denies syncope or chest pressure GI: Denies abdominal pain, nausea, vomiting, bloody stools or diarrhea. [] : Denies dysuria or hematuria Musculoskeletal: Denies back pain or joint pain. [] Integument: Denies rash or crepitus Neurologic: Denies headache, focal weakness or sensory changes. [] Endocrine: Denies polyuria or polydipsia. [] Lymphatic: Denies swollen glands. [] Psychiatric: Denies depression or anxiety. [] Heart Score: Risk Factors: Risk Factors: DM, Current or recent (<one month) smoker, HTN, HLP, family history of CAD, obesity. Risk Scores: Score 0 - 3: 2.5% MACE over next 6 weeks - Discharge Home Score 4 - 6: 20.3% MACE over next 6 weeks - Admit for Clinical Observation Score 7 - 10: 72.7% MACE over next 6 weeks - Early Invasive Strategies Current Medications: Current Medications Medications (Trade) Dose Ordered Sig/Rohith Start Time Stop Time Status Last Admin Dose Admin Adenosine (Adenocard) 6 mg 1X ONCE 10/14/20 00:15 10/14/20 00:16 DC 10/14/20 00:15 6 MG Sodium Chloride 1,000 ml @ 1,000 mls/hr 1X ONCE 10/14/20 00:30 10/14/20 01:29 10/14/20 00:23 1,000 MLS/HR Allergies: Allergies: Allergies Coded Allergies Type Severity Reaction Last Updated Verified No Known Drug Allergies 02/08/14 No Physical Exam: PE: Constitutional: well nourished, non-toxic appearance. HENT: Normocephalic, atraumatic, Eyes: EOMI, conjunctiva normal, no discharge. Neck: Normal range of motion, supple, Cardiovascular: S1/2 present, tachycardic rhythm in the upper 160s Lungs & Thorax: Speaking in full sentences, bilateral equal chest rise, no tachypnea or increased work of breathing Abdomen: soft, no tenderness, Skin: Warm, dry, no erythema, no rash. [] Back: No tenderness, no CVA tenderness. [] Extremities: No tenderness, no cyanosis, no edema Neurologic: Alert and oriented X 3, normal motor function, normal sensory func tion, no focal deficits noted. [] Psychologic: Affect normal, judgement normal, mood normal. [] Current Patient Data: Labs: Laboratory Tests Test 10/14/20 00:15 White Blood Count 9.4 x10^3/uL (4.0-11.0) Red Blood Count 5.45 x10^6/uL (3.50-5.40) H Hemoglobin 15.6 g/dL (12.0-15.5) H Hematocrit 45.7 % (36.0-47.0) Mean Corpuscular Volume 84 fL (79-100) Mean Corpuscular Hemoglobin 29 pg (25-35) Mean Corpuscular Hemoglobin Concent 34 g/dL (31-37) Red Cell Distribution Width 14.5 % (11.5-14.5) Platelet Count 260 x10^3/uL (140-400) Neutrophils (%) (Auto) 55 % (31-73) Lymphocytes (%) (Auto) 36 % (24-48) Monocytes (%) (Auto) 7 % (0-9) Eosinophils (%) (Auto) 1 % (0-3) Basophils (%) (Auto) 0 % (0-3) Neutrophils # (Auto) 5.2 x10^3/uL (1.8-7.7) Lymphocytes # (Auto) 3.4 x10^3/uL (1.0-4.8) Monocytes # (Auto) 0.7 x10^3/uL (0.0-1.1) Eosinophils # (Auto) 0.1 x10^3/uL (0.0-0.7) Basophils # (Auto) 0.0 x10^3/uL (0.0-0.2) Sodium Level 141 mmol/L (136-145) Potassium Level 4.1 mmol/L (3.5-5.1) Chloride Level 106 mmol/L (98-107) Carbon Dioxide Level 24 mmol/L (21-32) Anion Gap 11 (6-14) Blood Urea Nitrogen 14 mg/dL (7-20) Creatinine 1.0 mg/dL (0.6-1.0) Estimated GFR (Cockcroft-Gault) 56.9 BUN/Creatinine Ratio 14 (6-20) Glucose Level 116 mg/dL (70-99) H Calcium Level 8.8 mg/dL (8.5-10.1) Magnesium Level Pending Total Bilirubin Pending Aspartate Amino Transferase (AST) Pending Alanine Aminotransferase (ALT) Pending Alkaline Phosphatase Pending Total Protein Pending Albumin Pending Albumin/Globulin Ratio Pending Ethyl Alcohol Level < 10 mg/dL (0-10) Laboratory Tests 10/14/20 00:15 Laboratory Tests 10/14/20 00:15 Vital Signs: Vital Signs Date Time Temp Pulse Resp B/P (MAP) Pulse Ox O2 Delivery O2 Flow Rate FiO2 10/14/20 00:10 98.7 168 24 135/70 (91) 100 Room Air 98.7 EKG: EKG: SVT at 161 bpm, QTC 468, T wave inversion aVL, cannot appreciate obvious ST elevations or ST depressions Repeat EKG with sinus rhythm at 93 bpm, no axis deviation, normal intervals, no T wave inversions, no ST elevations or ST depressions Radiology/Procedures: Radiology/Procedures: [] Course & Med Decision Making: Course & Med Decision Making Pertinent Labs and Imaging studies reviewed. (See chart for details) Concern for brief episode of SVT that resolved with adenosine, and sinus rhythm on reevaluation. Labs with no electrolyte abnormalities, TSH in normal range, negative troponin, negative alcohol-no electrolyte explanation for patient's symptoms. On reevaluation patient states she was just seen at [facility] on Thursday by her primary care physician and has been on Cardizem 240 mg ER qdaily "for years"-has not missed this medication. 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 Urine not obtained for drug screen analysis, patient denies any drug use. I did offer admission for cardiology and social work evaluation, patient declined stating "I now I need an ablation but they won't do it if I get admitted." Will discharge home with strict ED return precautions for chest pain, dyspnea, neurologic deficits, confusion or altered mental status or syncope. Encouraged urgent outpatient follow-up with PMD and cardiology. Life- threatening processes were considered but are low suspicion at this time, given history, physical exam and ED workup. Pt was educated on all prescription medi cations and adverse effects. All patient's questions were answered and pt was stable at time of discharge. Life/limb-threatening differential includes but is not limited to, acute myocardial infarction, aortic dissection, congestive heart failure, esophageal injury including rupture, surgical abdomen, arrhythmia, cardiomyopathy, myocarditis, pericarditis, peptic ulcer disease, pneumomediastinum, pneumonia, pneumothorax, pulmonary embolus, unstable angina, rib fracture, contusion, pericardial tamponade or effusion, pulmonary contusion I spoken with the patient and her caregivers. I explained the patient's condition, diagnoses and treatment plan based on the information available to me at this time. I have answered the patient and her caregiver's questions and addressed any concerns. The patient and her caregivers have a good understanding of patient's diagnosis, condition and treatment plan as can be expected at this point. Vital signs have been stable. Patient's condition is stable and appropriate for discharge from the emergency department. Patient will pursue further outpatient evaluation with primary care physician or other designated or consulting physician as outlined in the discharge instructions. The patient and/or caregivers are agreeable to this plan of care and follow-up instructions have been explained in detail. The patient and/or caregivers have received these instructions in written form and have expressed an understanding of the discharge instructions. The patient and/or caregivers are aware that any significant change of condition or worsening of symptoms should prompt immediate return to this or the closest emergency department or call to 911. Summer Disclaimer: Summer Disclaimer: This electronic medical record was generated, in whole or in part, using a voice recognition dictation system. Departure Departure Impression: Primary Impression: SVT (supraventricular tachycardia) Disposition: 01 DC HOME SELF CARE/HOMELESS Condition: STABLE Referrals: UNKNOWN PCP NAME (PCP) FOLLOW UP WITH FAMILY MEDICINE: Family Medicine Address: [address] [facility], [facility] [address] [place] [address] Patient Instructions: Supraventricular Tachycardia Additional Instructions: FOLLOW UP WITH CARDIOLOGY: [facility] Address: [address] [facility] [address] [place] [address] EMERGENCY DEPARTMENT GENERAL DISCHARGE INSTRUCTIONS Thank you for coming to [facility] Emergency Department (ED) today and trusting us with you care. We trust that you had a positive experience in our Emergency Department. If you wish to speak to the department management, you may call the Director at [phone]. YOUR FOLLOW UP INSTRUCTIONS ARE FOLLOWS: 1. Do you have a private Doctor? If you do not have a private doctor, please ask for a resource list of physicians or clinics that may be able to assist you with follow up care. 2. The Emergency Physicain has interpreted your x-rays. The X-Ray specialist will also review them. If there is a change in the findings, you will be notified in 48 hours when at all possible. 3. A lab test or culture has been done, your results will be reviewed and you will be notified if you need a change in treatment. ADDITIONAL INSTRUCTIONS AND INFORMATION: 1. Your care today has been supervised by a physician who is specially trained in emergency care. Many problems require more than one evaluation for a complete diagnosis and treatment. We recommend that you schedule your follow up appointment as re commended to ensure complete treatment of you illness or injury. If you are unable to obtain follow up care and continue to have a problem, or if your condition worsens, we recommend that you return to the ED. 2. We are not able to safely determine your condition over the phone nor are we able to give sound medical advice over the phone. For these safety reasons, if you call for medical advice we will ask you to come to the ED for further evaluation. 3. If you have any questions regarding these discharge instructions please call the ED at [phone]. SAFETY INFORMATION: In the interest of safety, wellness, and injury prevention; we encourage you to wear your sealbelt, if you smoke; quite smoking, and we encourage family to use a protective helmet for bicycling and other sporting events that present an increased risk for head injury. IF YOUR SYMPTOMS WORSEN OR NEW SYMPTOMS DEVELOP, OR YOU HAVE CONCERNS ABOUT YOUR CONDITION; OR IF YOUR CONDITION WORSENS WHILE YOU ARE WAITING FOR YOUR FOLLOW UP APPOINTMENT; EITHER CONTACT YOUR PRIMARY CARE DOCTOR, THE PHYSICIAN WHOSE NAME AND NUMBER YOU WERE GIVEN, OR RETURN TO THE ED IMMEDIATELY. [facility]PH[facility] DO Oct 14, 2020 00:53
[2020-10-14 01:20] VITALS: BP 131/78
--- NOTE | 2020-10-14 05:11 | EKG ---
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
--- NOTE | 2020-10-16 13:46 | EKG ---
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
== END 2020-10-14 01:50 | disposition home or self-care (01) ==
LOC: ER 00:02
DX: I47.1 Supraventricular tachycardia (principal); F17.200 Nicotine dependence, unspecified, uncomplicated
CPT/HCPCS: 36415; 80053; 83735; 84443; 84484; 85025; 93005; 96361; 96374; 99284; G0480; J0153; J7030

== ENCOUNTER 2020-10-23 08:14 | Emergency (ER) | payer SELFPAY ==
[~2020-10-23] VITALS: Ht 172.7 cm; Wt 63.0 kg
[2020-10-23] MEDS ORDERED: ADENOSINE 6 MG/2 ML VIAL. IV ONE ×2 (08:22→08:30)
--- NOTE | 2020-10-23 08:26 | PHYS DOC ---
Past Medical History Past Medical History: Other Additional Past Medical Histor: SVT Past Surgical History: No Surgical History Additional Past Surgical Histo: bone removed from foot, lumpectomy Smoking Status: Current Every Day Smoker Alcohol Use: None Drug Use: None General Adult EDM: Chief Complaint: RAPID HEART RATE HPI: HPI: 52-year-old female, well known to this emergency department by myself (I saw her 10/14 for SVT, 14 ed visits since 02/2020) presents to the ED with complaints of palpitations, concern for SVT and is requesting adenosine 6 mg. States she took 1 tablet of adderall from a friend 2 days ago because "my anxiety, I knew I tiffanie uldn't have taken it." States she saw her pcp [place] [facility] [place] and on Tuesday, BB was changed from atenolol to another BB that starts with a "B." Takes Cardizem 240 mg ER qdaily and reports compliance. Patient refusing labs. EMR was reviewed and patient had labs on the that showed no electrolyte abnormalities, TSH in normal range, negative troponin, negative alcohol. Review of Systems: Review of Systems: Constitutional: Denies fever or chills. [] Eyes: Denies change in visual acuity. [] HENT: Denies nasal congestion or sore throat. [] Respiratory: Denies cough or shortness of breath. [] Cardiovascular: Denies syncope or hemoptysis GI: Denies abdominal pain, nausea, vomiting, bloody stools or diarrhea. [] : Denies dysuria or hematuria Musculoskeletal: Denies back pain or joint pain. [] Integument: Denies rash or diaphoresis Neurologic: Denies headache, focal weakness or sensory changes. [] Endocrine: Denies polyuria or polydipsia. [] Lymphatic: Denies swollen glands. [] Psychiatric: Denies depression, suicidal or homicidal ideations Heart Score: Risk Factors: Risk Factors: DM, Current or recent (<one month) smoker, HTN, HLP, family history of CAD, obesity. Risk Scores: Score 0 - 3: 2.5% MACE over next 6 weeks - Discharge Home Score 4 - 6: 20.3% MACE over next 6 weeks - Admit for Clinical Observation Score 7 - 10: 72.7% MACE over next 6 weeks - Early Invasive Strategies Current Medications: Current Medications Medications (Trade) Dose Ordered Sig/Rohith Start Time Stop Time Status Last Admin Dose Admin Sodium Chloride 1,000 ml @ 1,000 mls/hr Q1H 10/23/20 08:30 10/23/20 09:29 UNV Allergies: Allergies: Allergies Coded Allergies Type Severity Reaction Last Updated Verified No Known Drug Allergies 02/08/14 No Physical Exam: PE: Constitutional: Well developed, well nourished, HENT: Normocephalic, atraumatic, Eyes: EOMI, conjunctiva normal, no discharge. Neck: Normal range of motion, supple, Cardiovascular: S1/2 present, SVT on EKG Lungs & Thorax: Speaking in full sentences, bilateral equal chest rise, no tachypnea or increased work of breathing Abdomen: soft, no tenderness, Skin: Warm, dry, no erythema, no rash. [] Back: No tenderness, no CVA tenderness. [] Extremities: No tenderness, no cyanosis, no lower extremity edema Neurologic: Alert and oriented X 3, normal motor function, normal sensory function, no focal deficits noted. [] Psychologic: Affect normal, judgement normal, mood normal. [] EKG: EKG: Supraventricular tachycardia 175 bpm, no axis deviation, QTC 472, no obvious T wave inversions, no obvious ST elevations or ST depressions Repeat EKG sinus rhythm 91 bpm, no axis deviation, QTC 460, no T wave inversions, no ST elevations or ST depressions, patient with no active chest pain or palpitations Radiology/Procedures: Radiology/Procedures: [] Course & Med Decision Making: Course & Med Decision Making Pertinent Labs and Imaging studies reviewed. (See chart for details) Concern for SVT in the setting of Adderall use. Patient converted to sinus rhythm with adenosine 6 mg-saw conversion on 12 lead ekg with rapid push of adenosine. Patient with mild sinus tachycardia, no ST elevations or ST depressions on quality assurance monitor body/rhythm strip printed. Ativan given for anxiety. Repeat EKG with NSR. On reevaluation patient calm, hemodynamically stable and asymptomatic. Will refer to psychiatry for anxiety and prescribed Atarax. IV fluids given. Patient adamantly refusing labs, drug screen and chest x-ray (this is typical for pt). Will discharge home with strict ED return precautions were given for syncope, chest pain or difficulties breathing. Encouraged urgent outpatient follow-up with PMD and cardiology. Life-threatening processes were considered but are low suspicion at this time, given history, physical exam and ED workup. Pt was educated on all prescription medications and adverse effects. All patient's questions were answered and pt was stable at time of discharge. Life/limb-threatening differential includes but is not limited to, acute myocardial infarction, aortic dissection, congestive heart failure, esophageal injury including rupture, surgical abdomen, arrhythmia, cardiomyopathy, myocarditis, pericarditis, peptic ulcer disease, pneumomediastinum, pneumonia, pneumothorax, pulmonary embolus, unstable angina, rib fracture, contusion, pericardial tamponade or effusion, traumatic injury including mediastinal hemorrhage or hematoma, or pulmonary contusion. I spoken with the patient and her caregivers. I explained the patient's condition, diagnoses and treatment plan based on the information available to me at this time. I have answered the patient and her caregiver's questions and addressed any concerns. The patient and her caregivers have a good understanding of patient's diagnosis, condition and treatment plan as can be expected at this point. Vital signs have been stable. Patient's condition is stable and appropriate for discharge from the emergency department. Patient will pursue further outpatient evaluation with primary care physician or other designated or consulting physician as outlined in the discharge instructions. The patient and/or caregivers are agreeable to this plan of care and follow-up instructions have been explained in detail. The patient and/or caregivers have received these instructions in written form and have expressed an understanding of the discharge instructions. The patient and/or caregivers are aware that any significant change of condition or worsening of symptoms should prompt immediate return to this or the closest emergency department or call to 911. Summer Disclaimer: Summer Disclaimer: This electronic medical record was generated, in whole or in part, using a voice recognition dictation system. Departure Departure Impression: Primary Impression: SVT (supraventricular tachycardia) Additional Impression: Anxiety Disposition: 01 DC HOME SELF CARE/HOMELESS Condition: STABLE Referrals: UNKNOWN PCP NAME (PCP) FOLLOW UP WITH FAMILY MEDICINE: Family Medicine Address: [address] [facility] [address] [place] [address] Patient Instructions: Anxiety and Panic Attacks, Supraventricular Tachycardia Additional Instructions: FOLLOW UP WITH CARDIOLOGY: [facility] Address: [address] [facility] [address] [place] [address] FOLLOW UP WITH PSYCHIATRY: Dr. Osei Koenig Psychiatry Specialist [address] [place], [place] [address] EMERGENCY DEPARTMENT GENERAL DISCHARGE INSTRUCTIONS Thank you for coming to [facility] Emergency Department (ED) today and trusting us with you care. We trust that you had a positive experience in our Emergency Department. If you wish to speak to the department management, you may call the Director at [phone]. YOUR FOLLOW UP INSTRUCTIONS ARE FOLLOWS: 1. Do you have a private Doctor? If you do not have a private doctor, please ask for a resource list of physicians or clinics that may be able to assist you with follow up care. 2. The Emergency Physicain has interpreted your x-rays. The X-Ray specialist will also review them. If there is a change in the findings, you will be notified in 48 hours when at all possible. 3. A lab test or culture has been done, your results will be reviewed and you will be notified if you need a change in treatment. ADDITIONAL INSTRUCTIONS AND INFORMATION: 1. Your care today has been supervised by a physician who is specially trained in emergency care. Many problems require more than one evaluation for a complete diagnosis and treatment. We recommend that you schedule your follow up appointment as recommended to ensure complete treatment of you illness or injury. If you are unable to obtain follow up care and continue to have a problem, or if your condition worsens, we recommend that you return to the ED. 2. We are not able to safely determine your condition over the phone nor are we able to give sound medical advice over the phone. For these safety reasons, if you call for medical advice we will ask you to come to the ED for further evaluation. 3. If you have any questions regarding these discharge instructions please call the ED at [phone]. SAFETY INFORMATION: In the interest of safety, wellness, and injury prevention; we encourage you to wear your sealbelt, if you smoke; quite smoking, and we encourage family to use a protective helmet for bicycling and other sporting events that present an increased risk for head injury. IF YOUR SYMPTOMS WORSEN OR NEW SYMPTOMS DEVELOP, OR YOU HAVE CONCERNS ABOUT YOUR CONDITION; OR IF YOUR CONDITION WORSENS WHILE YOU ARE WAITING FOR YOUR FOLLOW UP APPOINTMENT; EITHER CONTACT YOUR PRIMARY CARE DOCTOR, THE PHYSICIAN WHOSE NAME AND NUMBER YOU WERE GIVEN, OR RETURN TO THE ED IMMEDIATELY. Scripts Hydroxyzine Hcl (HYDROXYZINE HCL) 25 Mg Tablet 1 TAB PO TID PRN for itching, #20 TAB Prov: ESTEPHANIA DONIS DO 10/23/20 ESTEPHANIA DONIS DO Oct 23, 2020 08:26
[2020-10-23] MEDS ORDERED: IV NORMAL SALINE 1000ML BAG 1,000 ML IV SCH (08:30)
[2020-10-23] MEDS ORDERED: HYDR25TA PO (08:43)
[2020-10-23 08:48] VITALS: BP 137/69
== END 2020-10-23 09:07 | disposition home or self-care (01) ==
LOC: ER 08:14
DX: I47.1 Supraventricular tachycardia (principal); F41.9 Anxiety disorder, unspecified; R00.2 Palpitations; F17.200 Nicotine dependence, unspecified, uncomplicated; Z98.890 Other specified postprocedural states; Z90.89 Acquired absence of other organs
CPT/HCPCS: 93005; 96361; 96374; 96375; 99284; J0153; J2060; J7030

== ENCOUNTER 2020-10-27 21:54 | Emergency (ER) | payer SELFPAY ==
[~2020-10-27] VITALS: Ht 172.7 cm; Wt 61.4 kg
[~2020-10-27 21:54] MED LIST changes: +HYDR25TA PO
[2020-10-27 21:58] VITALS: BP 146/100
[2020-10-27] MEDS ORDERED: ADENOSINE 6 MG/2 ML VIAL. IV ONE ×2 (21:59→22:30)
--- NOTE | 2020-10-27 22:21 | ED.ADGEN ---
Past Medical History Past Medical History: Other Additional Past Medical Histor: SVT Past Surgical History: No Surgical History Additional Past Surgical Histo: bone removed from foot, lumpectomy Smoking Status: Current Every Day Smoker Alcohol Use: None Drug Use: None General Adult EDM: Chief Complaint: RAPID HEART RATE HPI: HPI: Patient is a 60 year old female coming in for rapid heart rate.. Patient has a history of SVT and seen multiple times for the same complaint. States she was just walking when it started tonight. No recent illness, chest pain, shortness of breath. Review of Systems: Review of Systems: All other systems within normal limits except for as noted in the HPI Current Medications: Current Medications Medications (Trade) Dose Ordered Sig/[facility] Start Time Stop Time Status Last Admin Dose Admin Adenosine (Adenocard) 6 mg 1X ONCE 10/27/20 22:30 10/27/20 22:31 10/27/20 22:16 6 MG Allergies: Allergies: Allergies Coded Allergies Type Severity Reaction Last Updated Verified No Known Drug Allergies 02/08/14 No Physical Exam: PE: Constitutional: Well developed, well nourished, no acute distress, non-toxic appearance. [] HENT: Normocephalic, atraumatic, bilateral external ears normal, nose normal. [] Eyes: PERRLA, conjunctiva normal, no discharge. [] Neck: No rigidity, supple, no stridor. [] Cardiovascular: Rapid heart rate, brisk cap refill Lungs & Thorax: Non labored symmetric respirations, no tachypnea or respiratory distress [] Abdomen: Soft, nondistended. Skin: Warm, dry, no erythema, no rash. [] Back: Unremarkable Extremities: No deformities, range of motion grossly intact, no lower extremity edema [] Neurologic: Alert and oriented X 3, no focal deficits noted. [] Psychologic: Affect normal, judgement normal, mood normal. [] EKG: EK: SVT, heart rate 169, normal intervals 2210: Sinus tachycardia, heart rate 150 bpm, normal axis, no ST elevation or depression[] Heart Score: Risk Factors: Risk Factors: DM, Current or recent (<one month) smoker, HTN, HLP, family history of CAD, obesity. Risk Scores: Score 0 - 3: 2.5% MACE over next 6 weeks - Discharge Home Score 4 - 6: 20.3% MACE over next 6 weeks - Admit for Clinical Observation Score 7 - 10: 72.7% MACE over next 6 weeks - Early Invasive Strategies Radiology/Procedures: Radiology/Procedures: [] Impression: Patient converted to sinus tachycardia with IV push of 6 mg adenosine without complication. Observed in the emergency department the heart rate was less than 100 Course & Med Decision Making: Course & Med Decision Making Pertinent Labs and Imaging studies reviewed. (See chart for details) [] Dragon Disclaimer: Dragon Disclaimer: This electronic medical record was generated, in whole or in part, using a voice recognition dictation system. Departure Departure Impression: Primary Impression: SVT (supraventricular tachycardia) Disposition: 01 DC HOME SELF CARE/HOMELESS Condition: STABLE Referrals: NO PCP (PCP) RAUL CALLAHAN MD Oct 27, 2020 22:21
== END 2020-10-27 22:51 | disposition home or self-care (01) ==
LOC: ER 21:54
DX: I47.1 Supraventricular tachycardia (principal); F17.200 Nicotine dependence, unspecified, uncomplicated; Z90.89 Acquired absence of other organs; Z98.890 Other specified postprocedural states
CPT/HCPCS: 96374; 99283; J0153

== ENCOUNTER 2020-11-10 20:31 | Emergency (ER) | payer SELFPAY ==
[~2020-11-10] VITALS: Ht 172.7 cm; Wt 59.1 kg
[2020-11-10] MEDS ORDERED: ADENOSINE 6 MG/2 ML VIAL. IV ONE ×2 (20:35→21:00)
--- NOTE | 2020-11-10 21:15 | PHYS DOC ---
Past Medical History Past Medical History: Other Additional Past Medical Histor: SVT Past Surgical History: No Surgical History Additional Past Surgical Histo: bone removed from foot, lumpectomy Smoking Status: Current Every Day Smoker Alcohol Use: None Drug Use: None Adult General Chief Complaint Chief Complaint: RAPID HEART RATE HPI HPI Patient is a 60 year old female with a known past medical history of SVT presents emergency department palpitations. Patient is known to our department for having multiple episodes of SVT and having difficulty getting follow-up because of lack of insurance. Patient states that she was at home watching TV on her couch when she suddenly noted. Patient tried vagal maneuvers at home but was unsuccessful. Patient has been here multiple times requiring adenosine to break her SVT. Denies any fever, chills, nausea, vomiting or chest pain. Review of Systems Review of Systems Constitutional: Denies fever or chills [] Eyes: Denies change in visual acuity, redness, or eye pain [] HENT: Denies nasal congestion or sore throat [] Respiratory: Denies cough or shortness of breath [] Cardiovascular: No additional information not addressed in HPI [] GI: Denies abdominal pain, nausea, vomiting, bloody stools or diarrhea [] : Denies dysuria or hematuria [] Musculoskeletal: Denies back pain or joint pain [] Integument: Denies rash or skin lesions [] Neurologic: Denies headache, focal weakness or sensory changes [] Endocrine: Denies polyuria or polydipsia [] All other systems were reviewed and found to be within normal limits, except as documented in this note. Current Medications Current Medications Current Medications Medications (Trade) Dose Ordered Sig/[facility] Start Time Stop Time Status Last Admin Dose Admin Adenosine (Adenocard) 6 mg 1X ONCE 11/10/20 21:00 11/10/20 21:01 DC 11/10/20 21:21 6 MG Allergies Allergies Allergies Coded Allergies Type Severity Reaction Last Updated Verified No Known Drug Allergies 02/08/14 No Physical Exam Physical Exam Constitutional: Well developed, well nourished, no acute distress, non-toxic appearance. [] HENT: Normocephalic, atraumatic, bilateral external ears normal, oropharynx moist, no oral exudates, nose normal. [] Eyes: PERRLA, EOMI, conjunctiva normal, no discharge. [] Neck: Normal range of motion, no tenderness, supple, no stridor. [] Cardiovascular:Heart rate regular rhythm, no murmur [] Lungs & Thorax: Bilateral breath sounds clear to auscultation [] Abdomen: Bowel sounds normal, soft, no tenderness, no masses, no pulsatile masses. [] Skin: Warm, dry, no erythema, no rash. [] Back: No tenderness, no CVA tenderness. [] Extremities: No tenderness, no cyanosis, no clubbing, ROM intact, no edema. [] Neurologic: Alert and oriented X 3, normal motor function, normal sensory function, no focal deficits noted. [] Psychologic: Affect normal, judgement normal, mood normal. [] Current Patient Data Vital Signs Vital Signs Date Time Temp Pulse Resp B/P (MAP) Pulse Ox O2 Delivery O2 Flow Rate FiO2 11/10/20 21:43 99 18 99 11/10/20 20:37 98.7 98.7 11/10/20 20:35 132/93 (106) Room Air Lab Values Laboratory Tests Test 11/10/20 21:25 White Blood Count 6.0 x10^3/uL (4.0-11.0) Red Blood Count 5.16 x10^6/uL (3.50-5.40) Hemoglobin 14.7 g/dL (12.0-15.5) Hematocrit 43.4 % (36.0-47.0) Mean Corpuscular Volume 84 fL (79-100) Mean Corpuscular Hemoglobin 28 pg (25-35) Mean Corpuscular Hemoglobin Concent 34 g/dL (31-37) Red Cell Distribution Width 14.8 % (11.5-14.5) H Platelet Count 208 x10^3/uL (140-400) Neutrophils (%) (Auto) 59 % (31-73) Lymphocytes (%) (Auto) 30 % (24-48) Monocytes (%) (Auto) 8 % (0-9) Eosinophils (%) (Auto) 2 % (0-3) Basophils (%) (Auto) 1 % (0-3) Neutrophils # (Auto) 3.5 x10^3/uL (1.8-7.7) Lymphocytes # (Auto) 1.8 x10^3/uL (1.0-4.8) Monocytes # (Auto) 0.5 x10^3/uL (0.0-1.1) Eosinophils # (Auto) 0.1 x10^3/uL (0.0-0.7) Basophils # (Auto) 0.1 x10^3/uL (0.0-0.2) Sodium Level 144 mmol/L (136-145) Potassium Level 3.9 mmol/L (3.5-5.1) Chloride Level 107 mmol/L (98-107) Carbon Dioxide Level 26 mmol/L (21-32) Anion Gap 11 (6-14) Blood Urea Nitrogen 16 mg/dL (7-20) Creatinine 0.9 mg/dL (0.6-1.0) Estimated GFR (Cockcroft-Gault) 64.3 BUN/Creatinine Ratio 18 (6-20) Glucose Level 115 mg/dL (70-99) H Calcium Level 8.5 mg/dL (8.5-10.1) Magnesium Level 2.0 mg/dL (1.8-2.4) Total Bilirubin 0.5 mg/dL (0.2-1.0) Aspartate Amino Transferase (AST) 24 U/L (15-37) Alanine Aminotransferase (ALT) 28 U/L (14-59) Alkaline Phosphatase 110 U/L (46-116) Troponin I Quantitative < 0.017 ng/mL (0.000-0.055) Total Protein 6.6 g/dL (6.4-8.2) Albumin 3.6 g/dL (3.4-5.0) Albumin/Globulin Ratio 1.2 (1.0-1.7) Lipase 138 U/L (73-393) Laboratory Tests 11/10/20 21:25 Laboratory Tests 11/10/20 21:25 EKG EKG Initial EKG demonstrating SVT without any ST elevation or QRS widening Radiology/Procedures Radiology/Procedures [] Course & Med Decision Making Course & Med Decision Making Pertinent Labs and Imaging studies reviewed. (See chart for details) 60F presenting the emergency department new onset of SVT that is consistent with her prior episodes. Thickening present successful. Will give adenosine and if successful will monitor for any recurrence of her SVT. Dragon Disclaimer Dragon Disclaimer This electronic medical record was generated, in whole or in part, using a voice recognition dictation system. Departure Departure Impression: Primary Impression: SVT (supraventricular tachycardia) Disposition: 09 ADMITTED INPT THIS HOSP Condition: GOOD Referrals: NO PCP (PCP) Patient Instructions: Supraventricular Tachycardia Additional Instructions: EMERGENCY DEPARTMENT GENERAL DISCHARGE INSTRUCTIONS Thank you for coming to [facility] Emergency Department (ED) today and trusting us with you care. We trust that you had a positive experience in our Emergency Department. If you wish to speak to the department management, you may call the Director at [phone]. YOUR FOLLOW UP INSTRUCTIONS ARE FOLLOWS: 1. Do you have a private Doctor? If you do not have a private doctor, please ask for a resource list of physicians or clinics that may be able to assist you with follow up care. 2. The Emergency Physicain has interpreted your x-rays. The X-Ray specialist will also review them. If there is a change in the findings, you will be notified in 48 hours when at all possible. 3. A lab test or culture has been done, your results will be reviewed and you will be notified if you need a change in treatment. ADDITIONAL INSTRUCTIONS AND INFORMATION: 1. Your care today has been supervised by a physician who is specially trained in emergency care. Many problems require more than one evaluation for a complete diagnosis and treatment. We recommend that you schedule your follow up appointment as recommended to ensure complete treatment of you illness or injury. If you are unable to obtain follow up care and continue to have a problem, or if your condition worsens, we recommend that you return to the ED. 2. We are not able to safely determine your condition over the phone nor are we able to give sound medical advice over the phone. For these safety reasons, if you call for medical advice we will ask you to come to the ED for further evaluation. 3. If you have any questions regarding these discharge instructions please call the ED at [phone]. SAFETY INFORMATION: In the interest of safety, wellness, and injury prevention; we encourage you to wear your sealbelt, if you smoke; quite smoking, and we encourage family to use a protective helmet for bicycling and other sporting events that present an increased risk for head injury. IF YOUR SYMPTOMS WORSEN OR NEW SYMPTOMS DEVELOP, OR YOU HAVE CONCERNS ABOUT YOUR CONDITION; OR IF YOUR CONDITION WORSENS WHILE YOU ARE WAITING FOR YOUR FOLLOW UP APPOINTMENT; EITHER CONTACT YOUR PRIMARY CARE DOCTOR, THE PHYSICIAN WHOSE NAME AND NUMBER YOU WERE GIVEN, OR RETURN TO THE ED IMMEDIATELY. SAMMI DE JESUS MD Nov 10, 2020 21:15
[2020-11-10 21:37] LABS: BASO # 0.1 x10^3/uL (0.0-0.2); BASO % 1 % (0-3); EOS # 0.1 x10^3/uL (0.0-0.7); EOS % 2 % (0-3); HEMATOCRIT 43.4 % (36.0-47.0); HEMOGLOBIN 14.7 g/dL (12.0-15.5); LYMPH # 1.8 x10^3/uL (1.0-4.8); LYMPH % 30 % (24-48); MEAN CORPUSCULAR HEMOGLOBIN 28 pg (25-35); MEAN CORPUSCULAR HGB CONC 34 g/dL (31-37); MEAN CORPUSCULAR VOLUME 84 fL (79-100); MONO # 0.5 x10^3/uL (0.0-1.1); MONO % 8 % (0-9); NEUT # 3.5 x10^3/uL (1.8-7.7); NEUT % 59 % (31-73); PLATELET COUNT 208 x10^3/uL (140-400); RED BLOOD COUNT 5.16 x10^6/uL (3.50-5.40); RED CELL DISTRIBUTION WIDTH 14.8 % (11.5-14.5)
[2020-11-10 21:46] LABS: CALCIUM 8.5 mg/dL (8.5-10.1); CREATININE 0.9 mg/dL (0.6-1.0); GFR 64.3; POTASSIUM 3.9 mmol/L (3.5-5.1)
[2020-11-10 21:53] LABS: ALBUMIN 3.6 g/dL (3.4-5.0); ALBUMIN/GLOBULIN RATIO 1.2 (1.0-1.7); TOTAL BILIRUBIN 0.5 mg/dL (0.2-1.0); TOTAL PROTEIN 6.6 g/dL (6.4-8.2)
[2020-11-10 22:17] VITALS: BP 114/74
--- NOTE | 2020-11-11 07:34 | EKG ---
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
--- NOTE | 2020-11-13 04:41 | EKG ---
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
== END 2020-11-10 22:17 | disposition admitted as inpatient to this hospital (09) ==
LOC: ER 20:31
DX: I47.1 Supraventricular tachycardia (principal); F17.200 Nicotine dependence, unspecified, uncomplicated
CPT/HCPCS: 36415; 80053; 83690; 83735; 84484; 85025; 93005; 96374; 99285; J0153

== ENCOUNTER 2020-12-14 04:44 | Emergency (ER) | payer OTHER ==
[~2020-12-14] VITALS: Ht 172.7 cm; Wt 61.4 kg
--- NOTE | 2020-12-14 04:54 | PHYS DOC ---
Past Medical History Past Medical History: Other Additional Past Medical Histor: SVT Past Surgical History: No Surgical History Additional Past Surgical Histo: bone removed from foot, lumpectomy Smoking Status: Current Every Day Smoker Alcohol Use: None Drug Use: None General Adult EDM: Chief Complaint: RAPID HEART RATE HPI: HPI: 60 yo F PMH SVT, well known to ed, presents to the ed with c/o palpitations (typical svt sxs) that started 15 minutes prior to ed arrival. No associated syncope, chest pressure. dyspnea, back pain, neurologic deficits, dizziness, lightheadedness or diaphoresis. Review of Systems: Review of Systems: Constitutional: Denies fever or chills. [] Eyes: Denies change in visual acuity. [] HENT: Denies nasal congestion or sore throat. [] Respiratory: Denies cough or shortness of breath. [] Cardiovascular: Denies syncope or hemoptysis or edema GI: Denies abdominal pain, nausea, vomiting, bloody stools or diarrhea. [] : Denies dysuria. [] Musculoskeletal: Denies back pain or joint pain. [] Integument: Denies rash. [] Neurologic: Denies headache, focal weakness or sensory changes. [] Endocrine: Denies polyuria or polydipsia. [] Lymphatic: Denies swollen glands. [] Psychiatric: Denies depression or anxiety. [] Heart Score: C/O Chest Pain: No Risk Factors: Risk Factors: DM, Current or recent (<one month) smoker, HTN, HLP, family history of CAD, obesity. Risk Scores: Score 0 - 3: 2.5% MACE over next 6 weeks - Discharge Home Score 4 - 6: 20.3% MACE over next 6 weeks - Admit for Clinical Observation Score 7 - 10: 72.7% MACE over next 6 weeks - Early Invasive Strategies Allergies: Allergies: Allergies Coded Allergies Type Severity Reaction Last Updated Verified No Known Drug Allergies 02/08/14 No Physical Exam: PE: Constitutional: Well developed, well nourished, no acute distress, non-toxic appearance. HENT: Normocephalic, atraumatic, Eyes: EOMI, conjunctiva normal, no discharge. Neck: Normal range of motion, supple, Cardiovascular: S1/2 present, tachycardic Lungs & Thorax: Speaking in full sentences, bilateral equal chest rise, no tachypnea or increased work of breathing Abdomen: soft, no tenderness, Skin: Warm, dry, no erythema, no rash. [] Extremities: No tenderness, no cyanosis, no lower extremity edema Neurologic: Alert and oriented X 3, normal motor function, normal sensory function, no focal deficits noted. [] Psychologic: Affect normal, judgement normal, mood normal. [] EKG: EK Supraventricular tachycardia at 172 bpm, no axis deviation, QTC 462, ques tionable inferior lateral ST segment depressions, no active chest pressure or pain 0456 sinus tachycardia 111 bpm, no axis deviation, normal intervals, no T wave inversions, no ST elevations, no ST segment depressions Radiology/Procedures: Radiology/Procedures: [] Course & Med Decision Making: Course & Med Decision Making Pertinent Labs and Imaging studies reviewed. (See chart for details) Concern for SVT in a patient who recently received her medical insurance. Will be followed up by cardiology this week at . SVT broke with adenosine 6 mg, now in sinus rhythm, asymptomatic. Has no active chest pain, shortness of breath dizziness or neurologic deficits. Will discharge home with strict ED return precautions were given for []. Encouraged urgent outpatient follow-up with PMD and cardiology. Life-threatening processes were considered but are low suspicion at this time, given history, physical exam and ED workup. Pt was educated on all prescription medications and adverse effects. All patient's questions were answered and pt was stable at time of discharge. Life/limb-threatening differential includes but is not limited to, acute myocardial infarction, aortic dissection, congestive heart failure, esophageal injury including rupture, surgical abdomen, arrhythmia, cardiomyopathy, myocarditis, pericarditis, peptic ulcer disease, pneumomediastinum, pneumonia, pneumothorax, pulmonary embolus, unstable angina, rib fracture, contusion, pericardial tamponade or effusion, traumatic injury including mediastinal hemorrhage or hematoma, or pulmonary contusion. I spoken with the patient and her caregivers. I explained the patient's condition, diagnoses and treatment plan based on the information available to me at this time. I have answered the patient and her caregiver's questions and addressed any concerns. The patient and her caregivers have a good understanding of patient's diagnosis, condition and treatment plan as can be expected at this point. Vital signs have been stable. Patient's condition is stable and appropriate for discharge from the emergency department. Patient will pursue further outpatient evaluation with primary care physician or other designated or consulting physician as outlined in the discharge instructions. The patient and/or caregivers are agreeable to this plan of care and follow-up instructions have been explained in detail. The patient and/or caregivers have received these instructions in written form and have expressed an understanding of the discharge instructions. The patient and/or caregivers are aware that any significant change of condition or worsening of symptoms should prompt immediate return to this or the closest emergency department or [facility] Disclaimer: Summer Disclaimer: This electronic medical record was generated, in whole or in part, using a voice recognition dictation system. Departure Departure Impression: Primary Impression: SVT (supraventricular tachycardia) Disposition: 01 DC HOME SELF CARE/HOMELESS Condition: STABLE Referrals: NO PCP (PCP) FOLLOW UP WITH FAMILY MEDICINE: Family Medicine Address: [address] [place] [address], [address] [address] Patient Instructions: Supraventricular Tachycardia Additional Instructions: EMERGENCY DEPARTMENT GENERAL DISCHARGE INSTRUCTIONS Thank you for coming to Emergency Department (ED) today and trusting us with you care. We trust that you had a positive experience in our Emergency Department. If you wish to speak to the department management, you may call the Director at [phone]. YOUR FOLLOW UP INSTRUCTIONS ARE FOLLOWS: 1. Do you have a private Doctor? If you do not have a private doctor, please ask for a resource list of physicians or clinics that may be able to assist you with follow up care. 2. The Emergency Physicain has interpreted your x-rays. The X-Ray specialist will also review them. If there is a change in the findings, you will be notified in 48 hours when at all possible. 3. A lab test or culture has been done, your results will be reviewed and you will be notified if you need a change in treatment. ADDITIONAL INSTRUCTIONS AND INFORMATION: 1. Your care today has been supervised by a physician who is specially trained in emergency care. Many problems require more than one evaluation for a complete diagnosis and treatment. We recommend that you schedule your follow up appointment as recommended to ensure complete treatment of you illness or injury. If you are unable to obtain follow up care and continue to have a problem, or if your condition worsens, we recommend that you return to the ED. 2. We are not able to safely determine your condition over the phone nor are we able to give sound medical advice over the phone. For these safety reasons, if you call for medical advice we will ask you to come to the ED for further evaluation. 3. If you have any questions regarding these discharge instructions please call the ED at [phone]. SAFETY INFORMATION: In the interest of safety, wellness, and injury prevention; we encourage you to wear your sealbelt, if you smoke; quite smoking, and we encourage family to use a protective helmet for bicycling and other sporting events that present an increased risk for head injury. IF YOUR SYMPTOMS WORSEN OR NEW SYMPTOMS DEVELOP, OR YOU HAVE CONCERNS ABOUT YOUR CONDITION; OR IF YOUR CONDITION WORSENS WHILE YOU ARE WAITING FOR YOUR FOLLOW UP APPOINTMENT; EITHER CONTACT YOUR PRIMARY CARE DOCTOR, THE PHYSICIAN WHOSE NAME AND NUMBER YOU WERE GIVEN, OR RETURN TO THE ED IMMEDIATELY. ESTEPHANIA DONIS DO Dec 14, 2020 04:54
[2020-12-14] MEDS ORDERED: ADENOSINE 6 MG/2 ML VIAL. IV ONE (05:00)
[2020-12-14] MEDS ORDERED: IV NORMAL SALINE 1000ML BAG 1,000 ML IV ONE (05:00)
--- NOTE | 2020-12-14 05:02 | EKG ---
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
--- NOTE | 2020-12-14 05:18 | EKG ---
[facility] [address] [place] [address] Test Date: 2020-12-14 Test Time: 04:52:00 Pat Name: MURALI ALBA Department: Room: Gender: F Manager Star: : 1960 Requested By: ESTEPHANIA DONIS Order Number: [id number] Reading MD: Measurements Intervals [place] Rate: 172 P: [place]: QRS: 47 QRSD: 84 T: 241 QT: 268 QTc: 462 Interpretive Statements SUPRAVENTRICULAR TACHYCARDIA ST ABNORMALITY, POSSIBLE INFERIOR SUBENDOCARDIAL INJURY ABNORMAL ECG RI6.02 No previous ECG available for comparison
[2020-12-14 05:44] VITALS: BP 151/72
== END 2020-12-14 05:52 | disposition home or self-care (01) ==
LOC: ER 04:44
DX: I47.1 Supraventricular tachycardia (principal); R00.2 Palpitations; F17.200 Nicotine dependence, unspecified, uncomplicated; Z90.89 Acquired absence of other organs; Z98.890 Other specified postprocedural states
CPT/HCPCS: 93005; 96361; 96374; 99283; J0153; J7030

== ENCOUNTER 2020-12-31 19:07 | Emergency (ER) | payer OTHER ==
[~2020-12-31] VITALS: Ht 172.7 cm; Wt 61.0 kg
[2020-12-31] MEDS ORDERED: IV NORMAL SALINE 1000ML BAG 1,000 ML IV ONE (19:15)
[2020-12-31] MEDS ORDERED: ADENOSINE 6 MG/2 ML VIAL. IV ONE ×2 (19:15→19:25)
[2020-12-31 19:31] VITALS: BP 131/72
--- NOTE | 2020-12-31 19:31 | EKG ---
[facility] [address] [place] [address] Test Date: 2020-12-31 Test Time: 19:11:14 Pat Name: MURALI ALBA Department: Room: Gender: F Outpatient Admitting Clerk: EVERETT : 1960 Requested By: ESTEPHANIA DONIS Order Number: [id number] Reading MD: Measurements Intervals [place] Rate: 161 P: [place]: QRS: 60 QRSD: 86 T: 253 QT: 274 QTc: 449 Interpretive Statements SUPRAVENTRICULAR TACHYCARDIA ST & T ABNORMALITY, CONSIDER ANTEROLATERAL ISCHEMIA OR LEFT VENTRICULAR STRAIN INFEROLATERAL ISCHEMIA OR LEFT VENTRICULAR STRAIN ABNORMAL ECG RI6.02 No previous ECG available for comparison
--- NOTE | 2020-12-31 20:15 | PHYS DOC ---
Past Medical History Past Medical History: Other Additional Past Medical Histor: SVT Past Surgical History: Other Additional Past Surgical Histo: bone removed from foot, lumpectomy Smoking Status: Current Every Day Smoker Alcohol Use: None Drug Use: None General Adult EDM: Chief Complaint: Palpitations HPI: HPI: 60-year-old female well-known to this emergency department with complaints of palpitations that started 15 minutes prior to arrival after patient reports she ate a big dinner and felt as if she needed to belch. Has a pending appointment on January [address] Doran, cardiology at . Reports compliance with Cardizem 200 mg and "one of those lol's, I think 10." Denies any associated syncope, dyspnea, hemoptysis, chest pressure/tightness/squeezing or tearing or ripping sensation. Patient refuses labs in ED against my medical advice, despite risk of , cardiac arrhythmia, disability, paralysis or long-term pain and suffering. Denies any recent alcohol/drug use, denies cocaine and methamphetamine. Received her first dose of Covid vaccine on Tuesday. Review of Systems: Review of Systems: Constitutional: Denies fever or chills. [] Eyes: Denies change in visual acuity. [] HENT: Denies nasal congestion or sore throat. [] Respiratory: Denies cough or shortness of breath or hemoptysis Cardiovascular: Denies chest pain or edema or syncope GI: Denies abdominal pain, nausea, vomiting, bloody stools or diarrhea. [] : Denies dysuria or hematuria Musculoskeletal: Denies back pain or joint pain. [] Integument: Denies rash or diaphoresis Neurologic: Denies headache, neck or jaw pain, focal weakness or sensory changes. [] Endocrine: Denies polyuria or polydipsia. [] Lymphatic: Denies swollen glands. [] Psychiatric: Denies depression or anxiety. [] Heart Score: C/O Chest Pain: No Risk Factors: Risk Factors: DM, Current or recent (<one month) smoker, HTN, HLP, family history of CAD, obesity. Risk Scores: Score 0 - 3: 2.5% MACE over next 6 weeks - Discharge Home Score 4 - 6: 20.3% MACE over next 6 weeks - Admit for Clinical Observation Score 7 - 10: 72.7% MACE over next 6 weeks - Early Invasive Strategies Current Medications: Current Medications Medications (Trade) Dose Ordered Sig/Rohith Start Time Stop Time Status Last Admin Dose Admin Adenosine (Adenocard) 6 mg STK-MED ONCE 12/31/20 19:25 12/31/20 19:25 DC Sodium Chloride 1,000 ml @ 1,000 mls/hr 1X ONCE 12/31/20 19:15 12/31/20 20:14 12/31/20 19:35 1,000 MLS/HR Allergies: Allergies: Allergies Coded Allergies Type Severity Reaction Last Updated Verified No Known Drug Allergies 02/08/14 No Physical Exam: PE: Constitutional: Well developed, well nourished, no acute distress, non-toxic appearance. HENT: Normocephalic, atraumatic, Eyes: EOMI, conjunctiva normal, no discharge. Neck: Normal range of motion, supple, Cardiovascular: S1/2 present, SVT on arrival Lungs & Thorax: Speaking in full sentences, bilateral equal chest rise, no tachypnea or increased work of breathing Abdomen: soft, no tenderness, Skin: Warm, dry, no erythema, no rash. [] Extremities: No tenderness, no cyanosis, no lower extremity edema Neurologic: Alert and oriented X 3, normal motor function, normal sensory function, no focal deficits noted. [] Psychologic: Affect normal, judgement normal, mood normal. [] Current Patient Data: Vital Signs: Vital Signs Date Time Temp Pulse Resp B/P (MAP) Pulse Ox O2 Delivery O2 Flow Rate FiO2 12/31/20 19:31 100 18 131/72 (91) 97 Room Air 12/31/20 19:08 98.1 98.1 EKG: EK SVT 161 bpm, no axis deviation, normal intervals, not appreciate any obvious ST elevations 1930 s/p adenosine, sinus tachycardia 103 bpm, no axis deviation, normal intervals, no obvious ST elevations, has no active chest pain, inferior lateral ST segment depressions and q waves appear to be worsened when compared to November 10 EKG Radiology/Procedures: Radiology/Procedures: [] Course & Med Decision Making: Course & Med Decision Making Pertinent Labs and Imaging studies reviewed. (See chart for details) Patient presents the ED with complaints of palpitations and sensation of needing to belch. After 6 mg of adenosine patient in sinus tachycardia. I reviewed pts' ekgs with osmany Roman at [facility] and reports progression of inferiorlateral ST segment depressions/nonpathologic Q waves are worsening and I advised patient be admitted to the hospital with labs, troponin, echocardiogram and cardiology consultation that I am concerned pt has either had cardiac ischemia or is showing warning signs of pending ACS and needs further inpatient cardiac evaluation. That I am concerned patient could have a lethal cardiac arrhythmia that can result in or disability or permanent paralysis or chronic pain. Patient has decision-making opacity and despite these risks is asking to leave against medical advice and is refusing labs. I have never been able to convince pt to stay in hospital and she understands she's dangering her life/well being. The patient has decided to leave our facility against medical advice. I have assessed patient's ability to make informed decision and feel the patient has the capacity to comprehend information regarding the current medical condition and appreciates the impact of the disease or condition and the consequences of various options for treatment, including foregoing treatment. The patient possesses the ability to evaluate all treatment options, comparing the risks and benefits of each option, communicate his or her choice in a consistent manner over time, and is able to make rational choices. I explained to the patient further testing, treatment, and evaluation I would like to perform in the emergency department visit as well as any possible alternatives that can be accomplished in a timely manner. I have outlined the possible risks of foregoing any or all of these interventions and the patient understands and acknowledges that the decision to leave may result in undesirable consequences such as , permanent disability, and/or loss of current lifestyle. Even though leaving AMA is not ideal, take any medications prescribed, and resume care as soon as possible with another provider. This conversation was witnessed by another member of the emergency department staff (Abel) and we clearly communicated the patient is welcome to return anytime to continue care at our facility. Pt would not wait for her discharge papers. Will discharge home with strict ED return precautions were given for chest pressure/heaviness/tightness/tearing or ripping pain, sudden onset chest pain, dyspnea, abscess with nausea/vomiting or diaphoresis or neurologic deficits. Encouraged urgent outpatient follow-up with PMD and cardiology. Life- threatening processes were considered but not ruled out given AMA. All patient's questions were answered and pt was stable at time of discharge. Life/limb-threatening differential includes but is not limited to, acute myocardial infarction, aortic dissection, congestive heart failure, esophageal injury including rupture, surgical abdomen, arrhythmia, cardiomyopathy, myocarditis, pericarditis, peptic ulcer disease, pneumomediastinum, pneumonia, pneumothorax, pulmonary embolus, unstable angina, rib fracture, contusion, pericardial tamponade or effusion, traumatic injury including mediastinal hemorrhage or hematoma, or pulmonary contusion. [employer] Disclaimer: Dragon Disclaimer: This electronic medical record was generated, in whole or in part, using a voice recognition dictation system. Departure Departure Impression: Primary Impression: SVT (supraventricular tachycardia) Additional Impressions: Left against medical advice Inferior ST segment depression Disposition: 07 AMA/ELOPED/LWBS Condition: STABLE Referrals: NO PCP (PCP) FOLLOW UP WITH FAMILY MEDICINE: Family Medicine Address: [address] [facility] [address] [place] [address] Patient Instructions: Discharge Against Medical Advice, Supraventricular Tachycardia Additional Instructions: FOLLOW UP WITH CARDIOLOGY: Within 48 hours for evaluation [facility] Cardiology Address: [address] [place] [address] EMERGENCY DEPARTMENT GENERAL DISCHARGE INSTRUCTIONS Thank you for coming to [facility] Emergency Department (ED) today and trusting us with you care. We trust that you had a positive experience in our Emergency Department. If you wish to speak to the department management, you may call the Director at [phone]. YOUR FOLLOW UP INSTRUCTIONS ARE FOLLOWS: 1. Do you have a private Doctor? If you do not have a private doctor, please ask for a resource list of physicians or clinics that may be able to assist you with follow up care. 2. The Emergency Physicain has interpreted your x-rays. The X-Ray specialist will also review them. If there is a change in the findings, you will be notified in 48 hours when at all possible. 3. A lab test or culture has been done, your results will be reviewed and you will be notified if you need a change in treatment. ADDITIONAL INSTRUCTIONS AND INFORMATION: 1. Your care today has been supervised by a physician who is specially trained in emergency care. Many problems require more than one evaluation for a complete diagnosis and treatment. We recommend that you schedule your follow up appointment as recommended to ensure complete treatment of you illness or injury. If you are unable to obtain follow up care and continue to have a problem, or if your condition worsens, we recommend that you return to the ED. 2. We are not able to safely determine your condition over the phone nor are we able to give sound medical advice over the phone. For these safety reasons, if you call for medical advice we will ask you to come to the ED for further evaluation. 3. If you have any questions regarding these discharge instructions please call the ED at [phone]. SAFETY INFORMATION: In the interest of safety, wellness, and injury prevention; we encourage you to wear your sealbelt, if you smoke; quite smoking, and we encourage family to use a protective helmet for bicycling and other sporting events that present an increased risk for head injury. IF YOUR SYMPTOMS WORSEN OR NEW SYMPTOMS DEVELOP, OR YOU HAVE CONCERNS ABOUT YOUR CONDITION; OR IF YOUR CONDITION WORSENS WHILE YOU ARE WAITING FOR YOUR FOLLOW UP APPOINTMENT; EITHER CONTACT YOUR PRIMARY CARE DOCTOR, THE PHYSICIAN WHOSE NAME AND NUMBER YOU WERE GIVEN, OR RETURN TO THE ED IMMEDIATELY. ESTEPHANIA SOMERS DO Dec 31, 2020 20:14
--- NOTE | 2020-12-31 21:20 | EKG ---
[facility] [address] [place] [address] Test Date: 2020-12-31 Test Time: 19:31:51 Pat Name: MURALI ALBA Department: Room: Gender: F [employer] W[employer]: [place] : 1960 Requested By: ESTEPHANIA DONIS Order Number: [id number] Reading MD: Measurements Intervals [place] Rate: 103 P: 9 AL: 158 QRS: 77 QRSD: 86 T: 52 QT: 330 QTc: 434 Interpretive Statements SINUS TACHYCARDIA ST & T ABNORMALITY, CONSIDER ANTEROLATERAL ISCHEMIA OR LEFT VENTRICULAR STRAIN T ABNORMALITY IN INFEROLATERAL LEADS ABNORMAL ECG RI6.02 No previous ECG available for comparison
== END 2020-12-31 20:20 | disposition left against medical advice (07) ==
LOC: ER 19:07
DX: I47.1 Supraventricular tachycardia (principal); F32.9 Major depressive disorder, single episode, unspecified; F17.200 Nicotine dependence, unspecified, uncomplicated
CPT/HCPCS: 93005; 96361; 96374; 99283; J0153; J7030; 99284-25

== ENCOUNTER 2021-01-01 00:50 | Emergency (ER) | payer OTHER ==
[~2021-01-01] VITALS: Ht 172.7 cm; Wt 61.3 kg
[2021-01-01] MEDS ORDERED: ADENOSINE 6 MG/2 ML VIAL. IV ONE ×2 (00:58→01:30)
--- NOTE | 2021-01-01 01:08 | PHYS DOC ---
Past Medical History Past Medical History: Other Additional Past Medical Histor: SVT Past Surgical History: Other Additional Past Surgical Histo: bone removed from foot, lumpectomy Smoking Status: Current Every Day Smoker Alcohol Use: None Drug Use: None General Adult EDM: Chief Complaint: Palpitations HPI: HPI: 60-year-old female presents the ED as a bounce back after I discharged her AMA just a few hours ago, c/o palpitations while she was lying in bed that woke her up. Patient is well-known to this ED by myself and staff for SVT, noncompliant with outpatient management. Patient states if we recommend admission she is requesting transfer to [facility]. Has appt with eps/cardiology at on 01/[address] Doran. Pt present in ED with her -she consents to his knowledge of medical information. Patient is crying, stating "I don't want to ." Reports compliance with her Cardizem and beta-neo. Denies any drug use, alcohol, cocaine or methamphetamine abuse. Denies any chest pressure/tightness/heaviness/tearing/ripping sensation, dyspnea, abscess, leg swelling, motor or sensory deficits, blurry vision, facial droop, back pain, abdominal pain or speech changes. Review of Systems: Review of Systems: Constitutional: Denies fever or chills. [] Eyes: Denies change in visual acuity. [] HENT: Denies nasal congestion or sore throat. [] Respiratory: Denies cough or shortness of breath. [] Cardiovascular: Denies chest pain or edema. [] GI: Denies abdominal pain, nausea, vomiting, bloody stools or diarrhea. [] : Denies dysuria. [] Musculoskeletal: Denies back pain or joint pain. [] Integument: Denies rash. [] Neurologic: Denies headache, focal weakness or sensory changes. [] Endocrine: Denies polyuria or polydipsia. [] Lymphatic: Denies swollen glands. [] Psychiatric: Denies depression or anxiety. [] Heart Score: C/O Chest Pain: No Risk Factors: Risk Factors: DM, Current or recent (<one month) smoker, HTN, HLP, family history of CAD, obesity. Risk Scores: Score 0 - 3: 2.5% MACE over next 6 weeks - Discharge Home Score 4 - 6: 20.3% MACE over next 6 weeks - Admit for Clinical Observation Score 7 - 10: 72.7% MACE over next 6 weeks - Early Invasive Strategies Current Medications: Current Medications Medications (Trade) Dose Ordered Sig/Rohith Start Time Stop Time Status Last Admin Dose Admin Adenosine (Adenocard) 6 mg 1X ONCE 01/01/21 01:30 01/01/21 01:31 Sodium Chloride 1,000 ml @ 1,000 mls/hr Q1H 01/01/21 01:30 01/01/21 02:29 Allergies: Allergies: Allergies Coded Allergies Type Severity Reaction Last Updated Verified No Known Drug Allergies 02/08/14 No Physical Exam: PE: Constitutional: Well developed, well nourished, no acute distress, non-toxic appearance. HENT: Normocephalic, atraumatic, no signs of head trauma Eyes: EOMI, conjunctiva normal, no discharge. Neck: Normal range of motion, supple, Cardiovascular: S1/2 present, SVT on arrival Lungs & Thorax: Speaking in full sentences, bilateral equal chest rise, no tachypnea or increased work of breathing Abdomen: soft, no tenderness, Skin: Warm, dry, no erythema, no rash. [] Back: No tenderness, no CVA tenderness. [] Extremities: No tenderness, no cyanosis, no lower extremity edema/no unilateral lower extremity edema Neurologic: Alert and oriented X 3, normal motor function, normal sensory function, no focal deficits noted. [] Psychologic: Affect normal, judgement normal, mood normal. [] EKG: EK SVT 154, QTc 471, inferior lateral ST depressions are seen on prior EKG from ED visit within the past 6 hours, 0151 chest with 6 mg IV rapid push adenosine, sinus rhythm 92 bpm, no axis deviation, normal intervals, no ST elevations, inferior lateral ST segment depressions improved from prior EKG earlier tonight, nonpathologic Q waves 2, 3, aVF Radiology/Procedures: Radiology/Procedures: IMAGING REPORT Signed PATIENT: MURALI ALBA ACCOUNT: [id number] : 1960 LOCATION: ER AGE: 60 SEX: F EXAM STATUS: REG ER ORD. PHYSICIAN: ESTEPHANIA DONIS DO REASON: svt PROCEDURE: PORTABLE CHEST 1V XR CHEST 1V History: Reason: svt / Spl. Instructions: / History: Comparison: October 18, 2019 Findings: No consolidation or pleural effusion. Normal heart size. No pneumothorax. Glenohumeral DJD, left greater than right. Impression: 1. No acute cardiopulmonary process. Electronically signed by: Taurus Dye DO (01/01/2021 1:48 AM) [facility] DICTATED and SIGNED BY: TAURUS DYE DO DATE: 01/01/21 [id number] Course & Med Decision Making: Course & Med Decision Making Pertinent Labs and Imaging studies reviewed. (See chart for details) Concern for SVT in a noncompliant patient who initially was requesting transfer to - I had spoke to transfer center, pt last saw Dr. Doran ([facility]eps) in 2013 and separator tender at transfer confirms pt has an upcoming appointment. Patient received 6mg rapid IV adenosine push, now in sinus rhythm. She was educated on her EKG, negative troponin and elevated D-dimer. I spoke to pt with RN, in room and xray/rehab tech Lori at [facility] [place]. Patient was thoroughly educated on evaluation for underlying causes of SVT. She was educated on concern for elevated D-dimer and risk of life- threatening pulmonary embolus. Pt very upset and despite risks of , cardiac arrest, disability or vegetative state, pt is insisting to be discharged AGAINST MEDICAL ADVICE stating "I just want to go home." Patient refusing to explain why she is so insistent on going home. My nurse Kalli and myself are unable to convince patient and/or her "don't get him in the middle of this," to stay for CTA of the chest to evaluate for deadly pulmonary embolus, pt states "I'll just call 911." Patient understands that if she have a pulmonary embolus that she may become incapacitated to call 911, that even if bystanders were able to call 911, risk of or disability is very high. Patient states " I'll take my chances." The patient has decided to leave our facility against medical advice. I have as sessed patient's ability to make informed decision and feel the patient has the capacity to comprehend information regarding the current medical condition and appreciates the impact of the disease or condition and the consequences of various options for treatment, including foregoing treatment. The patient possesses the ability to evaluate all treatment options, comparing the risks and benefits of each option, communicate his or her choice in a consistent manner over time, and is able to make rational choices. I explained to the patient further testing, treatment, and evaluation I would like to perform in the emergency department visit as well as any possible alternatives that can be accomplished in a timely manner. I have outlined the possible risks of f oregoing any or all of these interventions and the patient understands and acknowledges that the decision to leave may result in undesirable consequences such as , permanent disability, and/or loss of current lifestyle. Even though leaving AMA is not ideal, take any medications prescribe (pt refusing to wait for dc papers and states she does not need any medications refilled), and resume care as soon as possible with another provider. This conversation was witnessed by another member of the emergency department staff and we clearly communicated the patient is welcome to return anytime to continue care at our facility. Summer Disclaimer: Summer Disclaimer: This electronic medical record was generated, in whole or in part, using a voice recognition dictation system. Departure Departure Impression: Primary Impression: SVT (supraventricular tachycardia) Additional Impression: Elevated d-dimer Disposition: 07 AMA/ELOPED/LWBS Condition: GUARDED Referrals: NO PCP (PCP) ESTEPHANIA DONIS DO Jan 01, 2021 01:08
[2021-01-01 01:19] LABS: BASO # 0.1 x10^3/uL (0.0-0.2); BASO % 1 % (0-3); EOS # 0.1 x10^3/uL (0.0-0.7); EOS % 1 % (0-3); HEMATOCRIT 41.6 % (36.0-47.0); HEMOGLOBIN 14.2 g/dL (12.0-15.5); LYMPH # 2.7 x10^3/uL (1.0-4.8); LYMPH % 34 % (24-48); MEAN CORPUSCULAR HEMOGLOBIN 29 pg (25-35); MEAN CORPUSCULAR HGB CONC 34 g/dL (31-37); MEAN CORPUSCULAR VOLUME 84 fL (79-100); MONO # 0.8 x10^3/uL (0.0-1.1); MONO % 10 % (0-9); NEUT # 4.3 x10^3/uL (1.8-7.7); NEUT % 54 % (31-73); PLATELET COUNT 205 x10^3/uL (140-400); RED BLOOD COUNT 4.95 x10^6/uL (3.50-5.40); RED CELL DISTRIBUTION WIDTH 15.1 % (11.5-14.5)
[2021-01-01] MEDS ORDERED: IV NORMAL SALINE 1000ML BAG 1,000 ML IV SCH (01:30)
[2021-01-01 01:33] LABS: CALCIUM 8.1 mg/dL (8.5-10.1); GFR 56.9; POTASSIUM 3.6 mmol/L (3.5-5.1)
[2021-01-01 01:36] LABS: PROTHROMBIN TIME PATIENT 12.7 SEC (11.7-14.0)
[2021-01-01 01:39] LABS: ALBUMIN 3.6 g/dL (3.4-5.0); DIRECT BILIRUBIN 0.1 mg/dL (0.0-0.2); MAGNESIUM 1.9 mg/dL (1.8-2.4); TOTAL BILIRUBIN 0.6 mg/dL (0.2-1.0); TOTAL PROTEIN 6.8 g/dL (6.4-8.2)
[2021-01-01 01:43] LABS: D-DIMER 0.65 ug/mlFEU (0.00-0.50)
[2021-01-01 01:50] VITALS: BP 122/61
--- NOTE | 2021-01-01 01:50 | RAD ---
XR CHEST 1V History: Reason: svt / Spl. Instructions: / History: Comparison: October 18, 2019 Findings: No consolidation or pleural effusion. Normal heart size. No pneumothorax. Glenohumeral DJD, left grea ter than right. Impression: 1. No acute cardiopulmonary process. Electronically signed by: Taurus Dye DO (01/01/2021 1:48 AM) [facility] [place]
--- NOTE | 2021-01-01 02:09 | EKG ---
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
[2021-01-01] MEDS ORDERED: CONTRAST GIVEN. MC PRN (02:15)
[2021-01-01] MEDS ORDERED: IOHEXOL 350 MG/ML 100 ML VIAL. IV ONE (02:30)
== END 2021-01-01 02:19 | disposition left against medical advice (07) ==
LOC: ER 00:53
DX: I47.1 Supraventricular tachycardia (principal); R79.89 Other specified abnormal findings of blood chemistry; R00.2 Palpitations; F17.200 Nicotine dependence, unspecified, uncomplicated; Z90.89 Acquired absence of other organs; Z98.890 Other specified postprocedural states
CPT/HCPCS: 36415; 71045; 80048; 80076; 83690; 83735; 83880; 84443; 84484; 85025; 85379; 85610; 93005; 96361; 96374; 99285; G0480; J0153; J7030

== ENCOUNTER → 2021-05-04 | Outpatient (CLI) | payer OTHER ==
--- NOTE | 2021-05-04 15:40 | KCIC ---
EXAM: LEFT SHOULDER 3 VIEWS. HISTORY: Left shoulder pain, limited range of motion. COMPARISON: None. FINDINGS: No fractures are identified. Lucencies along the anterior aspect of the glenoid may reflect suture anchors. Bulky osteophytosis indicates at least moderate glenohumeral osteoarthritis. Acromio clavicular joint spaces and alignment are maintained. IMPRESSION: 1. Moderate glenohumeral osteoarthritis. Electronically signed by: Petrona Thomas MD (05/04/2021 3:38 PM) [id number]
== END ==
LOC: KCIC 14:34
PROVIDERS: ATTEND Family Medicine
DX: M19.012 Primary osteoarthritis, left shoulder (principal)
CPT/HCPCS: 73030

== ENCOUNTER → 2021-07-15 | Outpatient (CLI) | payer OTHER ==
--- NOTE | 2021-07-15 16:27 | KCIC ---
Bilateral digital screening mammograms with 3-D tomosynthesis: Reason for examination: Routine baseline screening. Bilateral mammograms in CC and oblique projections were obtained with 2-D imaging and 3-D tomosynthes is imaging on a Siemens Inspiration unit and reviewed on the workstation. Interpretation was made wit h the benefit of CAD. The skin and nipples show no abnormalities. No abnormal axillary lymph nodes are seen. The breast par enchyma is heterogeneously dense. (Breast density: Category C.) There is some nodular asymmetry at th e 1:00 B position of the right breast. Further evaluation with ultrasound is recommended. There are a lso small circumscribed lesions consistent with intramammary lymph nodes located at the 8:00 B and 10 :00 C positions of the right breast. There are no other dominant masses, suspicious calcifications or architectural distortion. Impression: Nodular asymmetry at the 1:00 B position of the right breast approximately 5 cm posterior to the nipp le. Recommend further evaluation with ultrasound. Your patient's mammogram demonstrates that she has dense breast tissue (breast density category C or D), which could hide abnormalities, and if she has other risk factors for breast cancer that have bee n identified, she might benefit from supplemental screening tests that may be suggested by you as her ordering physician. Dense breast tissue, in and of itself, is a relatively common condition. Therefo re, this information is not provided to cause undue concern, but rather to raise your awareness and t o promote discussion with your patient regarding the presence of other risk factors, in addition to d ense breast tissue. Your patient's mammography results will be sent to her. BI-RAD Category 0: Incomplete. Needs additional imaging evaluation. "Our facility is accredited by the [employer] Mammography Program." This patient's information has been entered into a reminder system for the patient to be notified wit h the results of her examination and a target date for the next mammogram. Electronically signed by: Chloe Mckeon MD (07/15/2021 4:24 PM) [email or web address]
== END ==
LOC: KCIC MAMMO 13:48
PROVIDERS: ATTEND Family Medicine
DX: N63.12 Unspecified lump in the right breast, upper inner quadrant (principal); Z12.31 Encounter for screening mammogram for malignant neoplasm of breast
CPT/HCPCS: 77063; 77067

== ENCOUNTER → 2021-08-11 | Outpatient (CLI) | payer OTHER ==
--- NOTE | 2021-08-11 11:23 | KCIC ---
Right breast ultrasound: Reason for examination: Nodular asymmetry on screening mammogram. Comparison is made to mammographic exam dated 07/15/2021. Ultrasound examination of the right breast was performed in the area of mammographic concern and at t he axilla. There is a small intramammary lymph node at the 9:30 position 5 cm from the nipple which has a benign appearance. In the upper inner quadrant in the area of clinical concern, there is patchy fibroglandu lar tissue but no discrete cystic or solid nodule is seen. IMPRESSION: No suspicious abnormality seen sonographically. Recommend 6 month follow-up with right breast mammogr ams. BI-RADS Category 3: Probably benign. "Our facility is accredited by the [employer] Mammography Program." This patient's information has been entered into a reminder system for the patient to be notified wit h the results of her examination and a target date for the next mammogram. Electronically signed by: Chloe Mckeon MD (08/11/2021 11:20 AM) [id number]
== END ==
LOC: KCIC US 08:52
PROVIDERS: ATTEND Family Medicine
DX: N63.12 Unspecified lump in the right breast, upper inner quadrant (principal); R92.2 Inconclusive mammogram
CPT/HCPCS: 76641